=== PATIENT | male | born 1955 | race Caucasian/White ===

== ENCOUNTER → 2019-11-24 10:45 | Outpatient (BNVA) | payer MEDICARE, SELFPAY | PROVIDERS: Family Provider Internal Medicine; PCP Internal Medicine; Referring Provider Internal Medicine; Visit Provider Specialist | DX: M25.562 Pain in left knee (principal); M25.561 Pain in right knee | CPT/HCPCS: 73560; 73565 ==

== ENCOUNTER 2019-11-25 13:12 | Outpatient (RCR) | payer MEDICARE, SELFPAY | END 2019-11-26 23:59 | disposition home or self-care (01) | LOC: SPT 13:12 | PROVIDERS: PCP Internal Medicine; Referring Provider Specialist; Visit Provider Specialist | DX: M17.11 Unilateral primary osteoarthritis, right knee (principal) | CPT/HCPCS: 97161 ==

== ENCOUNTER 2019-11-27 06:00 | Outpatient (RCR) | payer MEDICARE, SELFPAY | END 2019-12-27 23:59 | disposition home or self-care (01) | LOC: SPT 06:00 | PROVIDERS: PCP Internal Medicine; Referring Provider Specialist; Visit Provider Specialist | DX: M17.11 Unilateral primary osteoarthritis, right knee (principal) | CPT/HCPCS: 97110 ==

== ENCOUNTER 2019-12-28 06:00 | Outpatient (RCR) | payer MEDICARE, SELFPAY | END 2020-01-26 23:59 | disposition home or self-care (01) | LOC: SPT 06:00 | PROVIDERS: PCP Internal Medicine; Referring Provider Specialist; Visit Provider Specialist | DX: M17.0 Bilateral primary osteoarthritis of knee (principal) | CPT/HCPCS: 97110 ==

== ENCOUNTER 2020-01-27 06:00 | Outpatient (RCR) | payer MEDICARE, SELFPAY | END 2020-02-26 23:59 | disposition home or self-care (01) | LOC: SPT 06:00 | PROVIDERS: PCP Internal Medicine; Referring Provider Specialist; Visit Provider Specialist | DX: M17.11 Unilateral primary osteoarthritis, right knee (principal) | CPT/HCPCS: 97110 ==

== ENCOUNTER 2020-07-08 17:01 | Inpatient (IN) | payer MEDICARE, SELFPAY ==
[2020-07-08] VITALS (48 sets, daily range): BP systolic 125–201; BP diastolic 74–103; PULSE 74–86; RESP 16–33; TEMP 36.6; O2SAT 84–99; BMI 48.7
--- NOTE | 2020-07-08 17:10 | ECG_ITS ---
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 Measurements Intervals [place] Rate: 84 P: -68 CT: 162 QRS: 15 QRSD: 95 T: 88 QT: 339 QTc: 401 Interpretive Statements SINUS RHYTHM LOW QRS VOLTAGE IN PRECORDIAL LEADS [QRS DEFLECTION < 1.0 mV IN CHEST LEADS] MODERATE ST DEPRESSION [0.05+ mV ST DEPRESSION] Compared to ECG 05/01/2016 19:19:36 Low QRS voltage now present ST (T wave) deviation now present T-wave abnormality no longer present Electronically Signed On 07-08-2020 19:38:56 [employer] by Sarah Galvan M.D. [email or web address]
--- NOTE | 2020-07-08 17:10 | XRR_ITS ---
PROCEDURE INFORMATION: Exam: XR Chest Exam date and time: 07/08/2020 5:34 PM Age: 64 years old Clinical indication: Chest pain. TECHNIQUE: Imaging protocol: XR of the chest Views: 1 view. COMPARISON: No relevant prior studies available. FINDINGS: Lungs: No pulmonary vascular congestion, pulmonary edema or pneumonia. Pleural spaces: No pleural effusion. No pneumothorax. Heart/Mediastinum: The cardiac silhouette is not enlarged. Prior CABG. Bones/joints: Prior median sternotomy. Soft tissues: Left epicardial fat pad. XR/XR chest 1V portable [id number] IMPRESSION: No acute abnormality.
--- NOTE | 2020-07-08 17:12 | W.ED.CHESTPA ---
HPI - Chest Pain General: Chief Complaint: Chest Pain Stated Complaint: CHEST PAIN Time Seen by Provider: 07/08/20 17:05 History of Present Illness: HPI narrative: The patient is a 64-year-old male who comes to the ER complaining of left-sided chest pain for the past 15 to 20 minutes at home. He has a significant history for coronary artery disease with CABG surgery years ago. 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 He says the pain is left-sided and feels heavy and makes him severely short of breath. complaint: chest pain and chest heaviness Pertinent past history: coronary artery disease and CABG Timing of current episode: constant Prior episodes: No Onset: during rest Pain location: left chest Pain radiation: none Severity: severe Quality: tightness, heaviness and sharp Relieving factors: nothing Exacerbating factors: nothing Associated symptoms: Reports no associated symptoms; Deny abdominal pain, dyspnea or palpitations Review of Systems General: Reports: 10 or more systems reviewed and unremarkable except in HPI and below Const: Denies: fatigue Eyes: Denies: change in vision, blurry vision or eye redness ENMT: Denies: throat pain, swelling of lips/tongue, ear or mastoid pain or nasal congestion Card: Reports: chest pain; Denies: palpitations, irregular heart rhythm, edema, dyspnea on exertion or orthopnea Resp: Denies: dyspnea, productive cough or non-productive cough GI: Denies: abdominal pain, diarrhea or GI cramping : Denies: flank pain, urinary frequency or urinary urgency Musc: Denies: neck pain, back pain, extremity pain, joint pain, joint redness, limited range of motion or muscle weakness Skin/Breast: Denies: rash, pruritus, erythema, skin pain or skin tenderness Neuro: Denies: headache(s), numbness in extremities, weakness in extremities, sensory changes, difficulty walking, dizziness, confusion or Slurred speech present Psych: Denies: anxiety or depression Endo: Denies: polyuria All/Imm: Denies: urticaria, throat swelling or tongue swelling PFSH ED PFSH: Medical History (Updated 07/08/20 @ 22:37 by Yohannes Merino MD) Coronary artery disease Gastroesophageal reflux disease Hypertension Hypothyroidism Percutaneous transluminal coronary angioplasty (PTCA) within last 14 to 24 months Sleep apnea Surgical History History of coronary artery bypass graft x 3 Family History (Updated 07/08/20 @ 22:33 by Yohannes Merino MD) Mother Diabetes Hyperlipidemia Hypertension Father CAD (coronary artery disease) Hyperlipidemia Hypertension Diabetes Social History Smoking and tobacco status: never smoked Alcohol intake: never Current occupational status: disabled Physical Exam Const: COMMON NORMALS: no acute distress, average body habitus, patient oriented x3, no limitations, healthy appearing, alert and well nourished GENERAL APPEARANCE: cooperative, comfortable, well kempt and well developed ORIENTATION/CONSCIOUSNESS: Yes awake, Yes oriented to person, Yes oriented to place and Yes oriented to time HENMT: COMMON NORMALS: normocephalic, external ears normal and Normal external nose present HEAD & SCALP: normal to inspection and normocephalic NOSE: Normal external nose present EXTERNAL EAR: Yes external ears normal MOUTH: Normal oral and palatal mucosa present THROAT: posterior oropharynx normal Eye: COMMON NORMALS: Equal, round and reactive pupils present and EOMs intact bilaterally GENERAL EYE: appearance normal, both eyes and all related structures PUPIL: Yes Equal, round and reactive pupils present Neck/C-Spine: COMMON NORMALS: full ROM, no lymphadenopathy, no meningeal signs and no JVD GENERAL: Yes normal visual inspection Lymph: LYMPHATIC: no lymphadenopathy noted Chest: COMMONS NORMALS: normal inspection of the chest and normal palpation of entire chest wall Resp: COMMON NORMALS: normal respiratory effort, No retractions, No use of accessory muscles, clear to auscultation bilaterally and percussion normal EFFORT & INSPECTION: Yes able to speak in complete sentences AUSCULTATION: clear to auscultation bilaterally PERCUSSION: percussion normal Cardio: COMMON NORMALS: no JVD, regular rate, regular rhythm, S1 normal heart sound present, S2 normal heart sound present and Peripheral pulses 2+ throughout RATE: regular rate RHYTHM: regular rhythm HEART SOUNDS: S1 normal heart sound present and S2 normal heart sound present PERIPHERAL PULSES: Peripheral pulses 2+ throughout GI: COMMON NORMALS: Normal to inspection, nondistended, normoactive bowel sounds present, Soft to palpation, non-tender and no masses INSPECTION: Yes normal to inspection PALPATION: Yes Soft to palpation : COMMON NORMALS: Yes no CVA tenderness BLADDER/KIDNEY EXAM: Yes no CVA tenderness Back/Pelvis: COMMON NORMALS: no CVA tenderness, thoracic and lumbar spine normal to inspection, no thoracic nor lumbar tenderness and thoraco-lumbar ROM normal Extremity: COMMON NORMALS: normal to inspection, full ROM, capillary refill normal, no joint enlargement and no pedal edema GENERAL: Yes normal exam except as noted Neuro: COMMON NORMALS: patient oriented x3, CN's II-XII intact bilaterally, moves all extremities, no focal motor deficits, no sensory deficits noted and gait normal SENSORIUM/ORIENTATION: Yes alert, Yes oriented to person, Yes oriented to place and Yes oriented to time MENINGEAL SIGNS: Yes no meningeal signs Psych: COMMON NORMALS: mental status grossly normal, Normal thought process present, cooperative, normal affect and speech normal APPEARANCE: Yes well kempt ATTITUDE: Yes calm SPEECH: Yes normal speech THOUGHT PROCESS: Normal thought process present Skin: COMMON NORMALS: no rashes or lesions noted GENERAL SKIN EXAM: no rashes or lesions noted Course Vital Signs: Vital signs: Vital Signs Temperature 97.9 F 07/08/20 20:45 Pulse Rate 77 07/08/20 23:40 Respiratory Rate 27 H 07/08/20 23:40 Blood Pressure 152/83 07/08/20 23:40 Pulse Oximetry 98 07/08/20 23:40 MDM - Chest Pain MDM Narrative: Medical decision making narrative: The patient came in with typical angina symptoms. He has not had a stress test in over 5 years. Initial EKG shows ST depressions in the lateral leads. Discussed with Dr. Dove who recommended going straight to [facility] as it is likely an MO. Activated the [facility] and he was given Plavix 600, aspirin, nitro, and heparin 4000. Lab Data: Labs: Lab Results 07/08/20 07/08/20 07/08/20 Range/Units 17:13 17:13 17:13 WBC 8.1 (4.0-10.0) 10^3/ uL RBC 4.69 (4.1-5.3) 10^6/u L Hgb 13.8 (11.7-16.6) g/dL Hct 42.0 (42.0-52.0) % MCV 89.6 (80-94) fL MCH 29.4 (28.0-34.0) pg MCHC 32.9 (30.0-36.0) g/dL RDW 15.9 H (12.1-15.1) % Plt Count 234 (130-400) 10^3/c mm MPV 9.8 (7.4-10.4) fL Neut % (Auto) 54.1 % Lymph % (Auto) 32.8 % [place] % (Auto) 6.9 % Eos % (Auto) 3.7 % Baso % (Auto) 2.0 % Neut # (Auto) 4.36 (1.8-7.7) 10^3/u L Lymph # (Auto) 2.7 (0.8-4.8) 10^3/u L [place] # (Auto) 0.6 (0.2-0.9) 10^3/u L Eos # (Auto) 0.3 (0.0-0.8) 10^3/u L Baso # (Auto) 0.2 H (0.0-0.1) 10^3/u L Nucleated RBC % (a uto) 0 % Nucleated RBCs # 0.0 /100WBC D-Dimer 0.50 (0-0.59) ug/mIFE U Sodium 137 (136-145) mmol/L Potassium 3.6 (3.5-5.1) mmol/L Chloride 98 (98-107) mmol/L Carbon Dioxide 27 (22-29) mmol/L Anion Gap 15.6 (5-19) BUN 19 (8-23) mg/dL Creatinine 1.3 H (0.7-1.2) mg/dL GFR Calculation 55.6 L (90-130) mL/min Glucose 190 H (65-115) mg/dL Calculated Osmolal ity 291 (285-295) mOsm/k g Calcium 9.5 (8.5-10.5) mg/dL Total Bilirubin 0.9 (0.15-1.2) mg/dL AST 15 (0-40) U/L ALT 17 (0-41) U/L Alkaline Phosphata se 103 (40-130) IU/L Troponin T Baselin e (0-15) ng/L NT-Pro-B Natriuret Pep 632 H (0-125) pg/mL Total Protein 7.6 (6.6-8.7) g/dL Albumin 4.5 (3.5-5.2) g/dL Globulin 3.1 (1.3-4.6) g/dL 07/08/20 Range/Units 17:13 WBC (4.0-10.0) 10^3/ uL RBC (4.1-5.3) 10^6/u L Hgb (11.7-16.6) g/dL Hct (42.0-52.0) % MCV (80-94) fL MCH (28.0-34.0) pg MCHC (30.0-36.0) g/dL RDW (12.1-15.1) % Plt Count (130-400) 10^3/c mm MPV (7.4-10.4) fL Neut % (Auto) % Lymph % (Auto) % [place] % (Auto) % Eos % (Auto) % Baso % (Auto) % Neut # (Auto) (1.8-7.7) 10^3/u L Lymph # (Auto) (0.8-4.8) 10^3/u L [place] # (Auto) (0.2-0.9) 10^3/u L Eos # (Auto) (0.0-0.8) 10^3/u L Baso # (Auto) (0.0-0.1) 10^3/u L Nucleated RBC % (a uto) % Nucleated RBCs # /100WBC D-Dimer (0-0.59) ug/mIFE U Sodium (136-145) mmol/L Potassium (3.5-5.1) mmol/L Chloride (98-107) mmol/L Carbon Dioxide (22-29) mmol/L Anion Gap (5-19) BUN (8-23) mg/dL Creatinine (0.7-1.2) mg/dL GFR Calculation (90-130) mL/min Glucose (65-115) mg/dL Calculated Osmolal ity (285-295) mOsm/k g Calcium (8.5-10.5) mg/dL Total Bilirubin (0.15-1.2) mg/dL AST (0-40) U/L ALT (0-41) U/L Alkaline Phosphata se (40-130) IU/L Troponin T Baselin e 115 H* (0-15) ng/L NT-Pro-B Natriuret Pep (0-125) pg/mL Total Protein (6.6-8.7) g/dL Albumin (3.5-5.2) g/dL Globulin (1.3-4.6) g/dL Discharge Plan Discharge Admit Provider: Paul Dove Clinical Impression: Unstable angina pectoris Condition: Stable Coding Level of Care 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
--- NOTE | 2020-07-08 17:21 | XACV_ITS ---
Exam Room: [facility] Ht: 175 cm Wt: 150 kg BSA: 2.78 m2 Gender: Male : 1955 Any Known Allergies: No known allergies Exam Priority: Routine Procedure(s): Procedure Description: Diagnostic procedure Procedure Description: Graft angiography Procedure Description: Coronary angiography Procedure Description: Percutaneous coronary intervention Diagnostic Cath Status: Emergency Diagnostic Findings * Left Main Coronary Artery: Distal vessel severe 70% stenosis, JOSEPH: 3 flow. * mLAD: Severe 100% stenosis, JOSEPH: 0 flow. JIMÉNEZ to LAD is patent. * SVG to OM: 100% stenosis, JOSEPH: 0 flow. This is the culprit lesion for the acute TN. * SVG to RPAV: 100% stenosis, JOSEPH: 0 flow. * pCIRC: Severe 85% stenosis, JOSEPH: 3 flow. * Mid Circumflex Coronary Artery: Severe 95% stenosis, JOSEPH: 3 flow. * Distal Circumflex Coronary Artery: Severe 75% stenosis, JOSEPH: 3 flow. * Proximal Right Coronary Artery: Severe 100% stenosis, JOSEPH: 0 flow. * Three grafts visualized. * JIMÉNEZ to dLAD: patent. * Coronary angiography shows right dominance. PCI Status: Emergency PCI Indication: STEMI - Stable (<= 12 hrs Sx) Interventional Findings * Procedure detail: IV heparin was administered to maintain an ACT above 250 seconds. We briefly attempted to perform revascularization of the SVG to OM as that was the cuplrit lesion but after balloon angioplasty, there was not mandaeism of flow. Attempt at revascularization of the RCA was also done, however given the presence of right to right collateral vessels, it became apparent that it is also not the culprit vessel. At this time we have decided to proceed with revascularization of [place] left main to left circumflex artery. We engaged left main artery using XB 3.5 guide catheter. A 0.014 run-through guidewire was used to cross the left circumflex artery stenosis and placed in the distal vessel. We predilated the stenosis with 2.25 mm semicompliant balloon, followed by 2.5x15mm semicompliant balloon. This was followed by placement of 2.75x30 mm resolute [place] drug-eluting stent in proximal vessel. We then predilated the left main stenosis with a 2.5x15mm semi compliant balloon. This was followed by placement of a 3.0x18mm Resolute aleisha BRYCE in left main extending into the left circumflex overlapping the initial stent. Left main stent was post dilated with a 3.5x 8mm NC balloon. There was significant residual stenosis downstream that was treated with a 2.5x26 and thena 2.5x18mm BRYCE. At this time final angiogram was performed that showed excellent stent expansion, no residual stenosis and JOSEPH-3 flow. Guidewire and guide catheter were removed. Hemostasis was obtained with angioseal. Patient left the [employer] in a stable condition. * Left Main Coronary Artery: 70% stenosis treated with AB TREK 2.50X15 RX BALLOON, MDT R ALEISHA 3.0X18 BRYCE, and MDT NC EUPHORA RX [id number] BALLOON. 0% residual stenosis, JOSEPH: 3 flow. * pCIRC: 85% stenosis treated with Drug Eluting Stent. 0% residual stenosis, JOSEPH: 3 flow. * Mid Circumflex Coronary Artery: 95% stenosis treated with AB TREK 2.25X12 RX BALLOON, AB TREK 2.50X15 RX BALLOON, and MDT R ALEISHA 2.75X30 BRYCE. 0% residual stenosis, JOSEPH: 3 flow. * Distal Circumflex Coronary Artery: 75% stenosis treated with AB TREK 2.25X12 RX BALLOON, MDT R ALEISHA 2.5X26 BRYCE, and MDT R ALEISHA 2.5X18 BRYCE. 0% residual stenosis, JOSEPH: 3 flow. * Proximal Right Coronary Artery: 100% stenosis treated with AB MINI TREK 2.00X6 RX BALLOON and AB TREK 2.25X12 RX BALLOON. 0% residual stenosis, JOSEPH: 3 flow. Conclusions 1. There is severe coronary artery disease with multi vessel coronary artery disease. 2. JIMÉNEZ to LAD is patent. SVG to OM is proximally occluded with thombus seen ( culprit lesion for acute posterior TN). SVG to RCA occluded. 3. Left Main Coronary Artery had distal severe disease and was treated with two Balloon and Drug Eluting Stent. 4. pCIRC was treated with Drug Eluting Stent. 5. Mid Circumflex Coronary Artery was treated with two Balloon and Drug Eluting Stent. 6. Distal Circumflex Coronary Artery was treated with Balloon and two Drug Eluting Stent. 7. Proximal Right Coronary Artery was treated with two Balloon. Recommendations * Admit to ICU. * Aspirin and Plavix for atleast 1 year. * Aggrastat gtt for 12 hours. * IV fluids for 18hours. * Order echocardiogram. * Beta blockers and lisinopril. * High intensity statin therapy. * Outpatient cardiology follow up. Interventional RX Recommendation: PCI w/o planned CABG Diagnostic RX Recommendation: PCI w/o planned CABG Anticoagulation: Heparin, Tirofiban Pressures Phase:Rest AO : 196 / 117 ( 108 ) @ 1:10:00 PM 95 / 72 ( 81 ) @ 1:14:00 PM 143 / 93 ( 117 ) @ 1:20:00 PM 158 / 96 ( 126 ) @ 1:33:00 PM 126 / 74 ( 98 ) @ 2:47:00 PM Clinical Evaluation EBL: 5mL-10mL Procedural Details Procedure Consent Obtained. Pre-Procedure Time Out. Identified patient by full name and date of as verbalized by the patient/guarantor. Does the consent match the physician's order: N/A Emergent; Informed Consent not obtained due to time critical life threat. Accurate & Complete Informed Consent: N/A Emergent; Informed Consent not obtained due to time critical life threat. Inpatient/Outpatient History & Physical on Chart: N/A Emergent; Informed Consent not obtained due to time critical life threat. If H&P is completed, is and addenduem needed: N/A Emergent; Informed Consent not obtained due to time critical life threat; If yes, is the addendum complete: N/A Emergent; Informed Consent not obtained due to time critical life threat. Visualize and Verify Site with Patient/Guarantor: N/A. Relevant Radiology Images available: N/A Emergent; Informed Consent not obtained due to time critical life threat. Pre-op teaching completed and patient verbalized understanding. The risks, benefits, and alternatives of sedation and/or procedure were discussed by physician. The patient agrees to continue. Procedure started. Current diagnosis: STEMI. PERRLA. Strong, equal hand staff training and development manager bilaterally. Lungs clear x 5 lobes. IV Fluids: 0.9% NaCl at KVO. 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 IV Site on Arrival: 18 gauge in the right anticubital. IV Site on Arrival: 18 gauge in the left anticubital. Oxygen started at 2liters/min via nasal canula. bilateral groins was prepped with chloroprep then draped in the usual sterile fashion. Physician notified. Baseline sample Acquired. HR: 80 BPM. Equipment: 6F - Femoral. Cardiac Cath Pack. ACIST Manifold Kit Model BT 2000. Heparinized Saline (2 units/mL), 1000 mL bag. Kit, Micropuncture. Physician arrived. Physician scrubbed in. Immediate Pre-Procedure Time Out. Correct Patient: N/A Emergent; Informed Consent not obtained due to time critical life threat; Correct Procedure: N/A Emergent; Informed Consent not obtained due to time critical life threat; Correct Site: N/A Emergent; Informed Consent not obtained due to time critical life threat; Correct Patient Position: N/A Emergent; Informed Consent not obtained due to time critical life threat; Correct Supplies: N/A Emergent; Informed Consent not obtained due to time critical life threat; Dried Flammable Prep: N/A Emergent; Informed Consent not obtained due to time critical life threat; Blood Products Available: N/A Emergent; Informed Consent not obtained due to time critical life threat;. Lidocaine 1% infiltrated to the right groin. Arterial access obtained with micropuncture set. A 5 samoan JL4 catheter in over wire. Multiple views taken of left coronary artery. Catheter out. A 5 samoan JR4 catheter in over wire. Multiple views taken of right coronary artery. SVG to RCA occluded. SVG to OM occluded. Catheter out. ACT drawn. Results 155 seconds. Therapeutic limits - pre-heparin administration 90-150 seconds and monitoring heparin during a vascular procedure >250 seconds. 6 samoan JR 4 guide catheter was inserted over the wire. Runthrough guidewire was advanced through the guide catheter to lesion in the OM. Inflation number : 1 A AB MINI TREK 2.00X6 RX BALLOON was prepped and advanced across the Aorta Left -> 1st Ob Vilma , then inflated to 8 ANDRIA for 0:18 seconds. Balloon out. Wire out. 6fr JR4 guide catheter repositioned to RCA. Wire out. Runthrough guidewire was advanced through the guide catheter to lesion in the prox RCA. Inventory is TR 180cm Runthrough NS extra floppy 0.014 wire. Inventory is TR 180cm Runthrough NS extra floppy 0.014 wire. Inflation number: 1 The AB MINI TREK 2.00X6 RX BALLOON was reinflated across the Prox RCA, to 10 ANDRIA for 0:22 seconds. Inflation number: 2 The AB MINI TREK 2.00X6 RX BALLOON was reinflated across the Prox RCA, to 10 [place]RI[place] for 0:13 seconds. Balloon out. Inflation number : 3 A AB TREK 2.25X12 RX BALLOON was prepped and advanced across the Prox RCA , then inflated to 12 ANDRIA for 0:18 seconds. Runthrough guidewire was advanced through the guide catheter to lesion in the prox RCA. Christina Morris RRT was relieved by EZEQUIEL Diaz as monitoring person. Balloon out. both Wires out. Guide catheter out. 6 samoan XB 3.5 guide catheter was inserted over the wire. Inventory is CRD 6 FR XB 3.5 GUIDE. Guide catheter out. 5 samoan IM guide catheter was inserted over the wire. JIMÉNEZ to LAD visualized. Guide catheter out. 6 samoan XB 3.5 guide catheter was inserted over the wire. ACT drawn. Results 181 seconds. Therapeutic limits - pre-heparin administration 90-150 seconds and monitoring heparin during a vascular procedure >250 seconds. Guide catheter out. Inventory is CRD 6 FR XB 3.5 GUIDE. 6 samoan XB 3.5 guide catheter was inserted over the wire. Runthrough guidewire was advanced through the guide catheter to lesion in the mid Circ. Balloon inserted to lesion in the mid Circ. Inflation number : 1 A AB TREK 2.25X12 RX BALLOON was prepped and advanced across the Mid CX , then inflated to 14 ANDRIA for 0:21 seconds. Inflation number: 2 The AB TREK 2.25X12 RX BALLOON was reinflated across the Mid CX, to 14 ANDRIA for 0:28 seconds. Inflation number: 3 The AB TREK 2.25X12 RX BALLOON was reinflated across the Mid CX, to 12 ANDRIA for 0:18 seconds. Inflation number: 4 The AB TREK 2.25X12 RX BALLOON was reinflated across the Mid CX, to 12 ANDRI[place] for 0:22 seconds. Balloon out. Balloon inserted to lesion in the mid Circ. Inflation number : 5 A AB TREK 2.50X15 RX BALLOON was prepped and advanced across the Mid CX , then inflated to 12 ANDRIA for 0:07 seconds. Inflation number: 6 The AB TREK 2.50X15 RX BALLOON was reinflated across the Mid CX, to 12 ANDRIA for 0:06 seconds. Inflation number: 7 The AB TREK 2.50X15 RX BALLOON was reinflated across the Mid CX, to 12 ANDRIA for 0:21 seconds. Balloon out. Stent inserted to lesion in the mid Circ. Inflation Number : 8 A MDT R ALEISHA 2.75X30 BRYCE -Lot Number# [id number] was prepped and advanced across the Mid CX. The stent was deployed at 12 ANDRIA for 0:20 seconds. exp 2021-10-30. Stent balloon out over wire. Results checked. Stent inserted to lesion in the distal Circ. intacted stent out over the wire. warehouse administrator updated family at this time. ACT drawn. Results 357 seconds. Therapeutic limits - pre-heparin administration 90-150 seconds and monitoring heparin during a vascular procedure >250 seconds. Runthrough guidewire was advanced through the guide catheter to lesion in the prox LAD. Wire out. Inventory is TR 180cm Runthrough NS extra floppy 0.014 wire. Runthrough guidewire was advanced through the guide catheter to lesion in the prox LAD. LAD Wire out. Stent inserted to lesion in the distal Circ. intact stent out. Balloon inserted to lesion in the distal left main. Inflation number : 1 A AB TREK 2.50X15 RX BALLOON was prepped and advanced across the LMCA , then inflated to 8 ANDRIA for 0:16 seconds. Results checked. Inflation number: 2 The AB TREK 2.50X15 RX BALLOON was reinflated across the LMCA, to 12 [place]RI[place] for 0:21 seconds. Results checked. Balloon out. Stent inserted to lesion in the LMCA. Inflation Number : 3 A MDT R ALEISHA 3.0X18 BRYCE -Lot Number# [id number] was prepped and advanced across the LMCA. The stent was deployed at 12 ANDRI[place] for 0:18 seconds. Exp 2022-03-21. Results checked. Balloon out. Runthrough guidewire was advanced through the guide catheter to lesion in the distal Circ. Balloon inserted to lesion in the distal Circ. Inflation number : 1 A AB TREK 2.25X12 RX BALLOON was prepped and advanced across the Dist CX , then inflated to 14 ANDRIA for 0:17 seconds. Balloon out. Stent inserted to lesion in the distal Circ. Inflation Number : 2 A MDT R ALEISHA 2.5X26 BRYCE -Lot Number# [id number] was prepped and advanced across the Dist CX. The stent was deployed at 14 ANDRIA for 0:21 seconds. Exp 2021-09-10. Stent balloon out over wire. Balloon inserted to lesion in the LMCA. Inflation number : 4 A MDT NC EUPHORA RX [id number] BALLOON was prepped and advanced across the LMCA , then inflated to 12 ANDRIA for 0:16 seconds. Inflation number: 5 The MDT NC EUPHORA RX [id number] BALLOON was reinflated across the LMCA, to 12 ANDRIA for 0:16 seconds. Inflation number: 6 The MDT NC EUPHORA RX [id number] BALLOON was reinflated across the LMCA, to 14 ANDRIA for 0:13 seconds. Balloon out. one of the runthorugh wires is out. Stent inserted to lesion in the distal Circ. Inflation Number : 3 A MDT R ALEISHA 2.5X18 BRYCE -Lot Number# [id number] was prepped and advanced across the Dist CX. The stent was deployed at 12 ANDRIA for 0:19 seconds. Exp 2021-01-03. Stent balloon and wire out. Results checked. ACT drawn. Results 223 seconds. Therapeutic limits - pre-heparin administration 90-150 seconds and monitoring heparin during a vascular procedure >250 seconds. Guide catheter out. groin shot. Lidocaine 1% infiltrated to the right groin. angioseal placed without complications. lot# [id number]. No signs or symptoms of hematoma noted. Sterile dressing applied per usual sterile fashion. Post-op diagnosis: occuled svg to om. Complications: none. Estimated blood loss: 5mL-10mL. Total IV fluids: 122 mL. Medication's Wasted: Lidocaine 1% = 10 mL. Medication's Wasted: Nitro = 49.6 mg. Medication's Wasted: Other = fentanayl 25 mcg. Post Procedure: Pulses reassessed and unchanged. PERRLA. Strong, equal hand staff training and development manager bilaterally. No VTE prophylaxis required. Procedure completed. Patient transferred by bed to ICU. Vital chart was stopped. Access Site Site: Right Femoral artery Sheath Size: 6 Fr Hemostasis Success: Unsuccessful Procedure Medications Start: 6:05 PM Stop: 6:05 PM Medication: Plavix Amount: 600 mg Route: P.O. Start: 6:05 PM Stop: 6:05 PM Medication: Versed Amount: 1 mg Route: I.V. Start: 6:05 PM Stop: 6:05 PM Medication: Fentanyl Amount: 50 mcg Route: I.V. Start: 6:07 PM Stop: 6:07 PM Medication: Versed Amount: 1 mg Route: I.V. Start: 6:07 PM Stop: 6:07 PM Medication: Fentanyl Amount: 50 mcg Route: I.V. Start: 6:09 PM Stop: 6:09 PM Medication: Heparin Amount: 6000 units Route: I.V. Start: 6:20 PM Stop: 6:20 PM Medication: Versed Amount: 1 mg Route: I.V. Start: 6:23 PM Stop: 6:23 PM Medication: Heparin Amount: 5000 units Route: I.V. Start: 6:28 PM Stop: 6:28 PM Medication: Versed Amount: 1 mg Route: I.V. Start: 6:28 PM Stop: 6:28 PM Medication: Fentanyl Amount: 25 mcg Route: I.V. Start: 6:33 PM Stop: 6:33 PM Medication: Aggrastat 12.5 mg/250 mL Amount: 75 ml Route: I.V. bolus Start: 6:38 PM Stop: 6:38 PM Medication: Aggrastat 12.5 mg/250 mL Amount: 27 ml/hr Route: I.V. drip Start: 6:41 PM Stop: 6:41 PM Medication: Versed Amount: 1 mg Route: I.V. Start: 6:41 PM Stop: 6:41 PM Medication: Fentanyl Amount: 25 mcg Route: I.V. Start: 6:46 PM Stop: 6:46 PM Medication: Nitrogylcerin Amount: 5 mcg/min Route: I.V. drip Start: 6:56 PM Stop: 6:56 PM Medication: Versed 1 mg and Fentanyl 25 mcg Amount: 1 Route: I.V. Start: 7:03 PM Stop: 7:03 PM Medication: Nitrogylcerin Amount: 10 mcg/min Route: I.V. drip Start: 7:04 PM Stop: 7:04 PM Medication: Heparin Amount: 6000 units Route: I.V. Start: 7:10 PM Stop: 7:10 PM Medication: Versed 1 mg and Fentanyl 25 mcg Amount: 1 Route: I.V. Start: 7:24 PM Stop: 7:24 PM Medication: Versed 1 mg and Fentanyl 25 mcg Amount: 1 Route: I.V. Start: 7:30 PM Stop: 7:30 PM Medication: Nitrogylcerin Amount: 200 mcg Route: I.C. Start: 7:43 PM Stop: 7:43 PM Medication: Nitrogylcerin Amount: 15 mcg/min Route: I.V. drip Start: 7:45 PM Stop: 7:45 PM Medication: Nitrogylcerin Amount: 200 mcg Route: I.C. Start: 7:45 PM Stop: 7:45 PM Medication: Versed Amount: 2 mg Route: I.V. Start: 7:46 PM Stop: 7:46 PM Medication: Fentanyl Amount: 25 mcg Route: I.V. Start: 7:59 PM Stop: 7:59 PM Medication: Nitrogylcerin Amount: 200 mcg Route: I.C. Start: 8:02 PM Stop: 8:02 PM Medication: Versed 1 mg and Fentanyl 25 mcg Amount: 1 Route: I.V. Start: 8:07 PM Stop: 8:07 PM Medication: Heparin Amount: 2000 units Route: I.V. I, the attending physician, have reviewed and verified all procedure medications. Yes, all medications given per verbal order Report Signatures Finalized by Paul Dove MD on 07/16/2020 03:25 PM
[2020-07-08] MEDS: aspirin 81 mg Chew Tablet PO ×3 (17:25)
[2020-07-08] MEDS: nitroglycerin 0.4 mg sublingual Tablet SUBLINGUAL (17:26)
[2020-07-08] MEDS: heparin 5,000 unit/mL INJ 1 mL 4000 UNIT IVP (17:26)
[2020-07-08 17:44] LABS: Basophils # 0.2 10^3/uL (0.0-0.1); Eosinophils # 0.3 10^3/uL (0.0-0.8); Eosinophils % 3.7 %; Hemoglobin 13.8 g/dL (11.7-16.6); Lymphocytes # 2.7 10^3/uL (0.8-4.8); Lymphocytes % 32.8 %; Mean Corpuscular HGB Conc 32.9 g/dL (30.0-36.0); Mean Corpuscular Hemoglobin 29.4 pg (28.0-34.0); Mean Corpuscular Volume 89.6 fL (80-94); Mean Platelet Volume 9.8 fL (7.4-10.4); Monocytes # 0.6 10^3/uL (0.2-0.9); Monocytes % 6.9 %; Neutrophils # 4.36 10^3/uL (1.8-7.7); Neutrophils % 54.1 %; Nucleated Red Blood Cells % 0 %; Platelet Count 234 10^3/cmm (130-400); Red Blood Count 4.69 10^6/uL (4.1-5.3); Red Cell Distribution Width 15.9 % (12.1-15.1); White Blood Count 8.1 10^3/uL (4.0-10.0)
--- NOTE | 2020-07-08 17:46 | P.HP_ITS ---
Providers/Chief Complaint Admitting Physician: Paul Dove MD Primary Care Provider: Celina Fofana MD Chief Complaint: CHEST PAIN History of Present Illness Murray Harp is a 64 year old male with past medical history of hypertension, diabetes, coronary artery disease with CABG performed in 2003 and PCI performed in 2013 according to patient presents with 20 minutes of severe substernal chest pain. According to patient he started noticing chest pain that feels like s omething heavy sitting on the chest. No radiation. After receiving the nitro it has mildly improved but continued having significant pain. His blood pressure is elevated. He was loaded with aspirin, Plavix and heparin bolus. EKG demonstrated likely posterior CO with ST depressions in V1 and V2 and T wave inversion and ST depressions in lateral leads. He was brought emergently to [facility]. Coronary angiography showed occlusion of SVG to RCA. SVG to OM was also occluded. This was likely the culprit for his CO. RCA had a proximal stent after which it was totally occluded. Filling with right to right collaterals in the distal vessel. JIMÉNEZ to LAD was patent. There were severe multiple lesions and left circumflex artery. Distal left main artery also had severe disease. We made a brief attempt at opening the SVG to OM. This was not successful. We then switched our plan to fix the washoe vessel. Patient underwent successful revascularization with BRYCE x4 from left main to distal left circumflex artery. At the end of procedure he had excellent stent expansion, JOSEPH-3 flow and no residual stenosis. His chest pain and EKG changes resolved. Review of Systems Narrative: CONSTITUTIONAL: No fever chills weight loss or gain or night sweats. [] HEENT: Normocephalic, atraumatic.[] RESPIRATORY: No cough, sputum, hemoptysis or wheezing.[] CARDIOVASCULAR: Patient has chest pain and shortness of breath, no lower extremity edema, presyncope or syncope. [] GI: no nausea vomiting diarrhea. [] SCRAP BALLER: No numbness, tingling, weakness or loss of function in any part of the body. [] MUSCULOSKELETAL: No knee or joint pain or rashes. [] Medications/Allergies Home Medications Medication Instructions Recorded Confirmed Last Taken Type amlodipine 5 mg PO DAILY 07/08/20 07/08/20 07/08/20 History aspirin 81 mg PO DAILY 07/08/20 07/08/2007/08/21 History atorvastatin 80 mg PO DAILY 07/08/20 07/08/20 07/07/20 History clopidogrel 75 mg PO DAILY 07/08/20 07/08/20 07/08/20 History gabapentin 300 mg PO TID 07/08/20 07/08/20 07/08/20 History hydrochlorothiazide 25 mg PO DAILY 07/08/20 07/08/20 07/08/20 History insulin aspart U-100 [Novolog 20 unit SUBCUT TIDWM 07/08/20 07/08/20 Unknown History Flexpen U-100 Insulin] insulin degludec [Tresiba 50 unit SUBCUT DAILY 07/08/20 07/08/20 07/07/20 Histo ry FlexTouch U-100] isosorbide mononitrate 120 mg PO DAILY 07/08/20 07/08/20 07/08/20 History levothyroxine 175 mcg PO DAILY 07/08/20 07/08/20 07/08/20 History lisinopril 20 mg PO DAILY 07/08/20 07/08/20 07/08/20 History metformin 500 mg PO BID 07/08/20 07/08/20 07/08/20 History metoprolol tartrate 25 mg PO BID 07/08/20 07/08/20 07/08/20 History pantoprazole 40 mg PO DAILY 07/08/20 07/08/20 07/08/20 History Allergies Allergy/AdvReac Type Severity Reaction Status Date / Time No Known Allergies Allergy Verified 05/18/20 07:59 PFSH Acute PFSH: Medical History (Updated 07/09/20 @ 08:33 by Paul Dove M.D) Coronary artery disease Gastroesophageal reflux disease Hypertension Hypothyroidism Percutaneous transluminal coronary angioplasty (PTCA) within last 14 to 24 months Sleep apnea Surgical History History of coronary artery bypass graft x 3 Family History (Updated 07/08/20 @ 22:33 by Yohannes Merino MD) Mother Diabetes Hyperlipidemia Hypertension Father CAD (coronary artery disease) Hyperlipidemia Hypertension Diabetes Social History Smoking and tobacco status: never smoked Alcohol intake: never Current occupational status: disabled Vitals/I&O/Wt Last Vital Signs Temp 97.8 F 07/08/20 17:06 Pulse 81 07/08/20 17:36 Resp 18 07/08/20 17:36 BP 175/81 07/08/20 17:36 Pulse Ox 98 07/08/20 17:37 Weight last 48 hrs Weight 330 lb Physical Exam Narrative: EXAM NARRATIVE: GENERAL: Patient is alert, awake and oriented x3. [] NECK: No jugular vein distension. [] HEENT: No cyanosis. No icterus. No pallor. [] HEART: Regular S1 and S2. No murmur, rub or gallop. [] LUNGS: Clear to auscultate bilaterally. [] ABDOMEN: Soft, nontender and nondistended. Positive bowel sounds. No guarding, rebound or tenderness. [] CENTRAL NERVOUS SYSTEM: Grossly nonfocal. [] EXTREMITIES: Lower extremities with 1+ edema bilaterally. Pulses palpable in the lower extremities, both dorsalis pedis and posterior tibial. [] Data : 07/09/20 05:22 07/09/20 05:22 A&P Assessment and plan (1) Acute posterior myocardial infarction: Status: Acute (2) Obesity, morbid (more than 100 lbs over ideal weight or BMI > 40): Status: Acute (3) Diabetic peripheral neuropathy associated with type 2 diabetes mellitus: Status: Acute (4) Hypertension: Status: Acute (5) Insulin dependent type 2 diabetes mellitus: Status: Acute Patient has presented with typical chest pain symptoms with acute posterior CO. His SVG to OM was occluded and was the culprit for CO. SVG to RCA is chronically occluded. JIMÉNEZ to LAD was patent. He underwent successful revascularization with BRYCE x4 from left main to distal left circumflex artery. Transfer to ICU Continue Aggrastat for 12 hours. Patient loaded with aspirin and Plavix. Continue Order echocardiogram High intensity statin therapy IV fluids for 18 hours as patient had significant contrast use. Monitor renal function closely. Will hold off on nephrotoxic medications. We will consult hospitalist team for help with management of diabetes. Appreciate the recommendations. Attestations Medical Necessity Statement*: Care expected to cross 2 midnights. Patient had Acute posterior wall CO s/p successful revascularization with BRYCE x 4 Coding Level of Care Code Acute Distance Education Coordinator for [facility] Fwd Diagnoses Acute posterior myocardial infarction I21.29 Obesity, morbid (more than 100 lbs over ideal weight or BMI > 40) E66.01 Diabetic peripheral neuropathy associated with type 2 diabetes mellitus E11.42 Hypertension I10 Insulin dependent type 2 diabetes mellitus E11.9; Z79.4
[2020-07-08 18:24] LABS: Troponin(5th) Baseline 115 ng/L (0-15)
[2020-07-08 18:37] LABS: Alanine Aminotransferase 17 U/L (0-41); Albumin Level 4.5 g/dL (3.5-5.2); Alkaline Phosphatase 103 IU/L (40-130); Anion Gap 15.6 (5-19); Aspartate Amino Transferase 15 U/L (0-40); Blood Urea Nitrogen 19 mg/dL (8-23); Calcium 9.5 mg/dL (8.5-10.5); Carbon Dioxide 27 mmol/L (22-29); Chloride 98 mmol/L (98-107); Globulin 3.1 g/dL (1.3-4.6); Glomerular Filtration Rate 55.6 mL/min (90-130); Glucose 190 mg/dL (65-115); NT Pro B Type Natriuretic Pept 632 pg/mL (0-125); Osmolality Calculated 291 mOsm/kg (285-295); Potassium 3.6 mmol/L (3.5-5.1); Sodium 137 mmol/L (136-145); Total Bilirubin 0.9 mg/dL (0.15-1.2); Total Protein 7.6 g/dL (6.6-8.7)
[2020-07-08] MEDS: sodium chloride 0.9% 1,000 ML 100 ML IV (21:00)
[2020-07-08] MEDS: metoprolol tartrate 50 mg Tablet PO (22:16)
[2020-07-08] MEDS: atorvastatin 40 mg Tablet 80 MG PO (22:16)
[2020-07-08 22:30] LABS: Glucose Point of Care 197 mg/dL (70-110)
--- NOTE | 2020-07-08 22:30 | PM.CONSULT ---
Providers/Reason For Consult Consulting Physican/Specialty*: Cardiology Reason for Consult*: Management of type 2 diabetes, hypertension Attending Physician: Paul Dove M.D Primary Care Provider: Celina Fofana MD History of Present Illness History of Present Illness Murray Harp is a 64 year old male with past medical history of CABG, PCI, hypertension, insulin-dependent diabetes, hypothyroidism, GERD, peripheral neuropathy, who presents [facility] due to chest pain. Patient had unstable angina, was taken to the cardiac catheterization lab after being loaded with aspirin, Plavix, statin, patient had [address] Dove. Medical team has been consulted for medical management, type 2 diabetes. Currently patient is in the ICU, he is having some chest soreness, but overall is doing better, no fevers, no cough, no exposure to COVID-19, his blood sugars have been well controlled between 100-200, he has an yan on his phone he checks his blood sugars quite regularly, last hemoglobin A1c was 6.5 Review of Systems Const: Denies: fever(s), chills, fatigue or malaise Eyes: Denies: change in vision or blurry vision ENMT: Denies: nasal congestion Card: Reports: chest pain Resp: Denies: dyspnea, productive cough, non-productive cough or wheezing GI: Denies: abdominal pain, nausea, vomiting, hematemesis, diarrhea, constipation, hematochezia or melena : Denies: flank pain, difficulty urinating, dysuria or urinary frequency Musc: Denies: neck pain or back pain Skin/Breast: Denies: rash Neuro: Denies: headache(s), dizziness or vertigo Endo: Denies: polyuria or polydipsia Meds/Allergies Home Medications and Allergies Home Medications Medication Instructions Recorded Confirmed Last Taken Type amlodipine 5 mg PO DAILY 07/08/20 07/08/20 07/08/20 History aspirin 81 mg PO DAILY 07/08/20 07/08/20 07/08/20 History atorvastatin 80 mg PO DAILY 07/08/20 07/08/20 07/07/20 History clopidogrel 75 mg PO DAILY 07/08/20 07/08/20 07/08/20 History gabapentin 300 mg PO TID 07/08/20 07/08/20 07/08/20 History hydrochlorothiazide 25 mg PO DAILY 07/08/20 07/08/20 07/08/20 History insulin aspart U-100 [Novolog 20 unit SUBCUT TIDWM 07/08/20 07/08/20 Unknown History Flexpen U-100 Insulin] insulin degludec [Tresiba 50 unit SUBCUT DAILY 07/08/20 07/08/20 07/07/20 History FlexTouch U-100] isosorbide mononitrate 120 mg PO DAILY 07/08/20 07/08/20 07/08/20 History levothyroxine 175 mcg PO DAILY 07/08/20 07/08/20 07/08/20 History lisinopril 20 mg PO DAILY 07/08/20 07/08/20 07/08/20 History metformin 500 mg PO BID 07/08/20 07/08/20 07/08/20 History metoprolol tartrate 25 mg PO BID 07/08/20 07/08/20 07/08/20 History pantoprazole 40 mg PO DAILY 07/08/20 07/08/20 07/08/20 History Allergies Allergy/AdvReac Type Severity Reaction Status Date / Time No Known Allergies Allergy Verified 05/18/20 07:59 Current Medications Current Medications Generic Name Dose Route Start Last Admin Trade Name Freq PRN Reason Stop Dose Admin Atorvastatin Calcium 80 mg 07/08/20 22:15 07/08/20 22:16 Atorvastatin 40 Mg Tablet PO 80 mg BEDTIME MICHELLE Administration Metoprolol Tartrate 50 mg 07/08/20 22:15 07/08/20 22:18 Metoprolol Tartrate 50 Mg Tablet PO Not Given BID@0900,2100 [facility] PFSH Acute PFSH: Medical History (Updated 07/08/20 @ 22:37 by Yohannes Mreino MD) Coronary artery disease Gastroesophageal reflux disease Hypertension Hypothyroidism Percutaneous transluminal coronary angioplasty (PTCA) within last 14 to 24 months Sleep apnea Surgical History History of coronary artery bypass graft x 3 Family History (Updated 07/08/20 @ 22:33 by Yohannes Merino MD) Mother Diabetes Hyperlipidemia Hypertension Father CAD (coronary artery disease) Hyperlipidemia Hypertension Diabetes Social History Smoking and tobacco status: never smoked Alcohol intake: never Current occupational status: disabled Vitals/I&O/Wt Last Vital Signs Temp 97.9 F 07/08/20 20:45 Pulse 74 07/08/20 20:55 Resp 26 H 07/08/20 20:55 BP 145/92 07/08/20 20:55 Pulse Ox 92 07/08/20 20:55 Weight last 48 hrs Weight 149.685 kg Physical Exam Const: COMMON NORMALS: no acute distress and patient oriented x3 GENERAL APPEARANCE: cooperative and comfortable HENMT: COMMON NORMALS: normocephalic HEAD & SCALP: normocephalic Eye: COMMON NORMALS: Equal, round and reactive pupils present and EOMs intact bilaterally GENERAL EYE: appearance normal, both eyes and all related structures PUPIL: Yes Equal, round and reactive pupils present Neck/C-Spine: COMMON NORMALS: full ROM, no lymphadenopathy, no JVD and Thyroid normal THYROID: Thyroid normal Lymph: LYMPHATIC: no lymphadenopathy noted Resp: COMMON NORMALS: normal respiratory effort, No retractions, No use of accessory muscles and clear to auscultation bilaterally AUSCULTATION: clear to auscultation bilaterally Cardio: COMMON NORMALS: no JVD, regular rate, regular rhythm, S1 normal heart sound present, S2 normal heart sound present, No gallops present (Cardio), No clicks present (Cardio) and No murmurs present (Cardio) RATE: regular rate RHYTHM: regular rhythm HEART SOUNDS: S1 normal heart sound present and S2 normal heart sound present GI: COMMON NORMALS: Normal to inspection, nondistended, normoactive bowel sounds present, Soft to palpation, non-tender and No hepatosplenomegaly present PALPATION: Yes Soft to palpation and Yes No hepatosplenomegaly present Extremity: COMMON NORMALS: normal to inspection, full ROM and no pedal edema Neuro: COMMON NORMALS: patient oriented x3, CN's II-XII intact bilaterally, moves all extremities and no focal motor deficits Psych: COMMON NORMALS: mental status grossly normal, Normal thought process present and cooperative THOUGHT PROCESS: Normal thought process present A&P Assessment and plan (1) Unstable angina pectoris: Status post 4 stents placement, on aspirin, Plavix, beta-barrett, statin Status: Acute (2) Insulin dependent type 2 diabetes mellitus: Landonight I have reduced his Lantus dose to 20 units at bedtime, continue NovoLog 20 units 3 times daily, with sliding scale Status: Acute (3) Hypertension: Holding lisinopril hydrochlorothiazide given creatinine 1.3 Status: Acute (4) Hypothyroidism: Continue levothyroxine Status: Acute Additional A&P Information Full code, Lovenox for DVT prophylaxis starting after sheath is removed Coding Level of Care Code Acute Key Account Executive 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
[2020-07-08] MEDS: insulin glargine 100 units/1 mL 20 UNIT SUBCUT (23:49)
[2020-07-08] MEDS: temazepam 15 mg Capsule PO (23:55)
[2020-07-09] VITALS (128 sets, daily range): BP systolic 106–160; BP diastolic 62–99; PULSE 68–139; RESP 6–40; TEMP 36.5–37.8; O2SAT 85–97; BMI 49.8
[2020-07-09 00:59] LABS: Troponin 5 6HR 959.5 ng/L (0-15); Troponin 5 6HR Delta 844.5 ng/L (0-12)
[2020-07-09 06:05] LABS: Basophils # 0.1 10^3/uL (0.0-0.1); Basophils % 0.9 %; Eosinophils # 0.1 10^3/uL (0.0-0.8); Eosinophils % 1.1 %; Hemoglobin 12.1 g/dL (11.7-16.6); Lymphocytes # 0.8 10^3/uL (0.8-4.8); Lymphocytes % 8.9 %; Mean Corpuscular HGB Conc 32.7 g/dL (30.0-36.0); Mean Corpuscular Hemoglobin 29.6 pg (28.0-34.0); Mean Corpuscular Volume 90.5 fL (80-94); Mean Platelet Volume 10.2 fL (7.4-10.4); Monocytes # 0.6 10^3/uL (0.2-0.9); Monocytes % 6.6 %; Neutrophils # 7.65 10^3/uL (1.8-7.7); Neutrophils % 82.1 %; Nucleated Red Blood Cells % 0 %; Platelet Count 202 10^3/cmm (130-400); Red Blood Count 4.09 10^6/uL (4.1-5.3); Red Cell Distribution Width 15.9 % (12.1-15.1); White Blood Count 9.3 10^3/uL (4.0-10.0)
[2020-07-09] MEDS: ondansetron 2 mg/ML SDV 2 mL 4 MG IVP ×2 (06:20→11:28)
[2020-07-09 06:30] LABS: Anion Gap 13.9 (5-19); Blood Urea Nitrogen 17 mg/dL (8-23); Calcium 8.3 mg/dL (8.5-10.5); Carbon Dioxide 26 mmol/L (22-29); Chloride 101 mmol/L (98-107); Glomerular Filtration Rate 67.4 mL/min (90-130); Glucose 184 mg/dL (65-115); Osmolality Calculated 290 mOsm/kg (285-295); Potassium 3.9 mmol/L (3.5-5.1); Sodium 137 mmol/L (136-145)
[2020-07-09 06:38] LABS: Add Urine Microscopic? NO; Bilirubin Urine Neg (Negative); Blood Urine Neg (Negative); Glucose Urine UA Norm (Normal); Ketones Urine Negative (Negative); Leukocyte Esterase Urine Negative (Negative); Nitrate Urine Negative (Negative); Protein Urine Neg (Negative); Specific Gravity, Urine 1.005 (1.005-1.030); Urine Appearance Clear (CLEAR); Urine Color Yellow (Yellow); Urobilinogen Urine Norm (Negative); pH Urine 5 (5-7)
--- NOTE | 2020-07-09 06:53 | ECG_ITS ---
[facility] Test Date: 2020-07-09 Pat Name: Murray Harp Department: Room: 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 Measurements Intervals [place] Rate: 83 P: 70 PA: 171 QRS: -15 QRSD: 90 T: 72 QT: 344 QTc: 405 Interpretive Statements SINUS RHYTHM NONSPECIFIC ST & T-WAVE ABNORMALITY Compared to ECG 07/08/2020 17:06:38 T-wave abnormality now present ST (T wave) deviation no longer present Electronically Signed On 07-09-2020 22:40:13 CDT by Sarah Galvan M.D. [id number]
[2020-07-09 06:54] LABS: Glucose Point of Care 222 mg/dL (70-110)
[2020-07-09] MEDS: nitroglycerin drip 50 MG/250 ML PREMIX IV (06:57)
--- NOTE | 2020-07-09 07:13 | PC.NURSE ---
Pt developed 5/10 chest pressure this a.m. Dr. Brand called, order received for EKG and Nitroglycerin drip. Ntg drip initiated. Awaiting EKG. Report given to a.m nurse.
[2020-07-09] MEDS: fentaNYL 50 mcg/mL INJ 2mL IVP (08:10)
--- NOTE | 2020-07-09 08:43 | P.PN_ITS ---
Subjective Subjective: Interval history: Patient underwent a successful revascularization from left main and distal left circumflex artery with BRYCE x4. This morning I was called that he is again having chest discomfort. Patient was evaluated. His chest pain is pleuritic. EKG does not have any ischemic changes. We repeated a troponin which has not trended up during the last 6 hours. He is also nauseous. Vitals/I&O/Wt Last Vital Signs Temp 97.7 F 07/09/20 03:00 Pulse 83 07/09/20 06:30 Resp 35 H 07/09/20 06:30 BP 145/78 07/09/20 06:30 Pulse Ox 93 07/09/20 06:30 07/08/20 07/09/20 07/09/20 21:59 06:59 14:59 Intake Total Output Total Balance Weight last 48 hrs Weight 338 lb Weight 338 lb Weight 330 lb Physical Exam Narrative: EXAM NARRATIVE: GENERAL: Patient is alert, awake and oriented x3. [] NECK: No jugular vein distension. [] HEENT: No cyanosis. No icterus. No pallor. [] HEART: Regular S1 and S2. No murmur, rub or gallop. [] LUNGS: Clear to auscultate bilaterally. [] ABDOMEN: Soft, nontender and nondistended. Positive bowel sounds. No guarding, rebound or tenderness. [] CENTRAL NERVOUS SYSTEM: Grossly nonfocal. [] EXTREMITIES: Lower extremities with 1+ edema bilaterally. Pulses palpable in the lower extremities, both dorsalis pedis and posterior tibial. [] Data : 07/09/20 05:22 07/09/20 05:22 A&P Assessment and plan (1) Acute posterior myocardial infarction: Status: Acute (2) Obesity, morbid (more than 100 lbs over ideal weight or BMI > 40): Status: Acute (3) Diabetic peripheral neuropathy associated with type 2 diabetes mellitus: Status: Acute (4) Hypertension: Status: Acute (5) Insulin dependent type 2 diabetes mellitus: Status: Acute Patient has presented with typical chest pain symptoms with acute posterior IN. His SVG to OM was occluded and was the culprit for IN. SVG to RCA is chronically occluded. JIMÉNEZ to LAD was patent. He underwent successful revascularization with BRYCE x4 from left main to distal left circumflex artery. Continue aspirin and Plavix. His chest pain is pleuritic in nature. Will obtain echocardiogram. Troponins have not trended up since last night. EKG has normalized. Will administer Zofran for nausea. High intensity statin therapy Amlodipine restarted. We will uptitrate beta-blockers. IV fluids for 18 hours as patient had significant contrast use. Monitor renal function closely. Will hold off on nephrotoxic medications. Hospitalist team helping with management of medical issues. Appreciate their input. Attestations Medical Necessity Statement*: Care expected to cross 2 midnights. Patient had acute posterior IN. He is status post successful revascularization with BRYCE x4. Coding Level of Care Code Acute Dental Equipment Technician for [facility] Fwd Diagnoses Acute posterior myocardial infarction I21.29 Obesity, morbid (more than 100 lbs over ideal weight or BMI > 40) E66.01 Diabetic peripheral neuropathy associated with type 2 diabetes mellitus E11.42 Hypertension I10 Insulin dependent type 2 diabetes mellitus E11.9; Z79.4
[2020-07-09] MEDS: sodium chloride 0.9% 1,000 ML 100 ML IV (08:44)
[2020-07-09] MEDS: clopidogrel 75 mg Tablet PO (08:47)
[2020-07-09] MEDS: aspirin 81 mg EC Tablet PO (08:47)
[2020-07-09] MEDS: levothyroxine 175 mcg Tablet PO (08:48)
[2020-07-09] MEDS: gabapentin 300 mg Capsule PO ×2 (08:48→21:33)
[2020-07-09] MEDS: pantoprazole DR 40 mg Tablet PO (08:48)
[2020-07-09] MEDS: metoprolol tartrate 50 mg Tablet PO ×2 (08:49→21:34)
[2020-07-09] MEDS: amlodipine 5 mg Tablet 10 MG PO (08:49)
[2020-07-09 09:51] LABS: Troponin T (5th) Once 992 ng/L (0-15)
--- NOTE | 2020-07-09 09:55 | PC.CHAP ---
Pastoral Care Encounter/Spiritual Assessment Type of Contact [] Declined technology coordinator visit [] Patient/Family/Request visit [] Outpatient visit [] Follow-up visit [] Physician referral [] Code/Alert [X] Routine visit [] Staff referral [] Actively dying [] Patient sleeping [] Family support [] [] Out of room [] Palliative care [] [] Receiving care in room [] Pre-surgical visit [] Trauma [] Long length of stay [] ICU visit [] Other: Relational/Emotional Strength [x] Patient feels connected with others/family/visitors/staff [] Distress [] Loneliness/isolation [] Abandonment Spirituality of Patient [] Person of Nicki [] Attends Sikhism of their Nicki [x] Believes in Prayer [] Reads Bible or Jew materials [] There are Spiritual issues to be addressed Health Lead Interventions [x] Prayer [x] Active listening [x] Non-anxious presence [x] Spiritual/emotional support [] Crisis/trauma care [] Spiritual counseling [] Bereavement support [] Provided bereavement packet [] Provided Bible/devotional materials [] Provided toy/stuffed animal, coloring book to patient or family member [] Provided Communion [] Anointing/[place] [] Salvation [x] Completed spiritual assessment [] Other: Impact on Illness or Injury [] Angry [] Fearful [] Anxious [] Often cries [] Exhaustion [] Unable to work [] Unable to attend christianity [] Unable to walk/stand [] Unable to read [] Unable to drive [] Unable to eat/drink [] Unable to sleep [] Unable to be with family [] Patient intubated [] Other: Summary Pt stated he felt terrible and was not talkative. Did indicate he has a daughter who will be arriving soon to bring him a phone speech scientist and to visit. Prayer offered and accepted Time spent with patient 5m
--- NOTE | 2020-07-09 10:30 | PC.NURSE ---
c/o chest pain in chest at change of shift ekg done at this time head of bed elevated Dr called after exam done appears to be more pluritic . Order for fentynl given one time chest pain some nausea noted also
[2020-07-09 10:57] LABS: Estmated Average Glucose 140; Hemoglobin A1C 6.5 % (4.0-6.0)
[2020-07-09 11:48] LABS: Glucose Point of Care 218 mg/dL (70-110)
--- NOTE | 2020-07-09 13:22 | PM.PN ---
Subjective Subjective: Interval history: Patient was seen and examined this morning patient is currently complaining of chest discomfort at rest, consideration is being given to pericarditis, he is also feeling nauseous His blood sugars have been running high, hemoglobin A1c 6.5, POC glucose 218 and 222mg/dl Hemodynamically stable, on nitro drip Patient is stating that at home he takes 50 units of Tresiba along 20 units of Humalog before meals with sliding Vitals/I&O/Wt Last Vital Signs Temp 97.7 F 07/09/20 03:00 Pulse 87 07/09/20 10:00 Resp 21 H 07/09/20 10:00 BP 156/84 07/09/20 10:00 Pulse Ox 96 07/09/20 10:00 07/08/20 07/09/20 07/09/20 21:59 06:59 14:59 Intake Total 1200 / 1200 Output Total Balance 1200 / 1200 Weight last 48 hrs Weight 153.314 kg Weight 153.314 kg Weight 149.685 kg Physical Exam Narrative: EXAM NARRATIVE: Morbidly obese male was in semi-Vinson position when I entered the room was saturating well on 3 L nasal cannula on nitro drip complaining of chest discomfort S1, S2 no overt signs of fluid overload No lower extremity edema Distended abdomen, obesity, nontender Bilateral breath sounds without respiratory distress no audible wheezing or stridor Distressed secondary to pain No joints EOMI, PERRLA no neurological deficit Data : 07/09/20 05:22 07/09/20 05:22 A&P Assessment and plan (1) Acute posterior myocardial infarction: Status: Acute (2) Hypothyroidism: Status: Acute (3) Hypertension: Status: Acute (4) Insulin dependent type 2 diabetes mellitus: Status: Acute Additional A&P Information Suboptimally controlled type 2 diabetes Patient is stating that he takes 15 units of Tresiba along 20 units premeal with sliding scale at home His POC glucose has been running high glucose 140s -180 in the hospital Hemoglobin A1c 6.5 If he is able to tolerate diet I will keep his Lantus as 40 units along 20 units premeal and sliding scale, if he is feeling nauseous and not eating well would recommend skipping 20 units premeal and just relying on sliding scale Lantus has not shown to cause hypoglycemia in the hospital settings, if he stays nauseous can do Accu-Cheks every 6 hours instead of with meals Change diet to consistent cardiac carb today Acute NV status post 4 stents: Patient is complaining of active chest pain currently on nitro drip concern for post NV complication with pericarditis, currently on aspirin, Plavix atorvastatin, NSAIDs contraindication post NV, Will request CRP and LDH Along CPK Management as per cardiology Hypothyroidism: Continue levothyroxine 175mcg RILEY resolved Full code Consistent carb/cardiac diet DVT prophylaxis: Lovenox Attestations Medical Necessity Statement*: As per cardiology Time Spent in Patient Care: 30mins Coding Level of Care Code Acute 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
--- NOTE | 2020-07-09 13:23 | PC.NURSE ---
continue chest disomfort and nausea zofran given
[2020-07-09 16:42] LABS: Glucose Point of Care 152 mg/dL (70-110)
[2020-07-09] MEDS: enoxaparin 40 mg/0.4 mL Syringe SUBCUT (16:46)
[2020-07-09] MEDS: atorvastatin 40 mg Tablet 80 MG PO (21:33)
--- NOTE | 2020-07-09 21:40 | USCV_ITS ---
Loyd Murray Age: 64 Gender: M : 1955 Exam Date: 07/09/2020 14:18 Ordering Phys: Paul Dove M.D ([email or web address]) Technologist: Maude Hernandez [place] [facility] [place]: POST OK BP: 158 / 83 HR: 85 Rhythm: Sinus Technical Quality: Technically difficult study MEASUREMENTS (Male / Female) Normal Values 2D ECHO LV Diastolic Diameter PLAX 4.4 cm 4.2 - 5.9 / 3.9 - 5.3 cm LV Systolic Diameter PLAX 3.1 cm LV Chamber Size 4.8 cm IVS Diastolic Thickness 1.4 cm 0.6 - 1.0 / 0.6 - 0.9 cm IVS Systolic Thickness 1.8 cm LVPW Diastolic Thickness 1.3 cm 0.6 - 1.0 / 0.6 - 0.9 cm LVPW Systolic Thickness 1.4 cm RV Chamber Size 3.4 cm LV Ejection Fraction 2D Teich 55.6 % LA Diameter 5.0 cm LA Width 4.4 cm LA Height 6.3 cm RA Width 3.6 cm RA Height 5.2 cm M-MODE LV Diastolic Diameter MM 5.0 cm 4.2 - 5.9 / 3.9 - 5.3 cm LV Systolic Diameter MM 3.2 cm LV Ejection Fraction MM Teich 65.7 % IVS Diastolic Thickness MM 1.7 cm 0.6 - 1.0 / 0.6 - 0.9 cm IVS Systolic Thickness MM 1.6 cm LVPW Diastolic Thickness MM 2.2 cm 0.6 - 1.0 / 0.6 - 0.9 cm LVPW Systolic Thickness MM 2.2 cm RV Diastolic Diameter MM 1.1 cm Aortic Annulus Diameter 3.6 cm LA Ao Ratio MM 1.4 MV E Point Septal Separation 0.5 cm DOPPLER AV Peak Velocity 114.0 cm/s LVOT Peak Velocity 105.0 cm/s MV Area PHT 4.5 cm squared Mitral E to A Ratio 1.0 MV E' Velocity 52.0 cm/s Mitral E to MV E' Ratio 8.8 Mitral E to LV E' Lateral Ratio 8.1 Mitral E to LV E' Septal Ratio 9.8 TV Peak E Velocity 80.0 cm/s Right Atrial Pressure 3.0 mmHg PV Peak Velocity 119.0 cm/s RV Acceleration Time 0.1 s RV Ejection Time 0.2 s RV AcT/ET 0.2 FINDINGS Left Ventricle Normal left ventricular size. LVsystolic function is borderline normal with EF of 50-55%. Mild to moderate hypokinesis of inferior and inferolateral wall. Normal diastolic filling pattern. Right Ventricle The right ventricle is normal in size and function. Right Atrium The right atrium is normal in size. Left Atrium The left atrium is normal in size. Mitral Valve Structurally normal mitral valve without significant stenosis or prolapse. There is no mitral regurgitation. Aortic Valve Structurally normal aortic valve without significant sclerosis or stenosis. There is no aortic regurgitation. Tricuspid Valve Structurally normal tricuspid valve without significant stenosis or regurgitation. Insufficient TR jet to calculate RVSP Pulmonic Valve Structurally normal pulmonic valve without significant stenosis. There is no pulmonic regurgitation. Pericardium Normal pericardium without effusion. Aorta Normal ascending aorta dimension. CONCLUSIONS LV systolic function is borderline normal with EF of 50-55%. Above mentioned regional wall motion abnormalities Diastolic function is normal No significant valvular heart disease No comparison studies are available Paul Dove MD (Electronically Signed) Final Date: 11 July 2020 08:45 S
--- NOTE | 2020-07-09 22:04 | PC.NURSE ---
Glucose Pt scanned device on abdomen. Glucose reading on phone was 177. Pt has not taken anything oral today besides water. Nausea with emesis throughout today. Continues to complain of nausea without emesis. Refuses to eat at this time. Dr. Merino notified by phone and orders received to hold PM Lantus and sliding scale.
[2020-07-10] VITALS (42 sets, daily range): BP systolic 97–164; BP diastolic 49–118; PULSE 67–90; RESP 16–39; TEMP 36.6–37.4; O2SAT 89–96
[2020-07-10 07:52] LABS: Glucose Point of Care 172 mg/dL (70-110)
[2020-07-10] MEDS: clopidogrel 75 mg Tablet PO (09:30)
[2020-07-10] MEDS: pantoprazole DR 40 mg Tablet PO (09:30)
[2020-07-10] MEDS: aspirin 81 mg EC Tablet PO (09:30)
[2020-07-10] MEDS: levothyroxine 175 mcg Tablet PO (09:30)
[2020-07-10] MEDS: gabapentin 300 mg Capsule PO ×3 (09:30→20:37)
[2020-07-10] MEDS: amlodipine 5 mg Tablet 10 MG PO (09:31)
[2020-07-10] MEDS: metoprolol tartrate 50 mg Tablet PO (09:32)
--- NOTE | 2020-07-10 09:50 | PC.CHAP ---
Pastoral Care Encounter/Spiritual Assessment Type of Contact [] Declined hearing aid consultant visit [] Patient/Family/Request visit [] Outpatient visit [] Follow-up visit [] Physician referral [] Code/Alert [x] Routine visit [] Staff referral [] Actively dying [] Patient sleeping [] Family support [] [] Out of room [] Palliative care [] [] Receiving care in room [] Pre-surgical visit [] Trauma [] Long length of stay [x] ICU visit [] Other: Relational/Emotional Strength [] Patient feels connected with others/family/visitors/staff [] Distress [] Loneliness/isolation [] Abandonment Spirituality of Patient [] Person of Nicki [] Attends Hindu of their Nicki [] Believes in Prayer [] Reads Bible or Judaism materials [] There are Spiritual issues to be addressed Supervisor Fur Dressing Interventions [x] Prayer [x] Active listening [x] Non-anxious presence [x] Spiritual/emotional support [] Crisis/trauma care [] Spiritual counseling [] Bereavement support [] Provided bereavement packet [] Provided Bible/devotional materials [] Provided toy/stuffed animal, coloring book to patient or family member [] Provided Communion [] Anointing/[place] [] Salvation [x] Completed spiritual assessment [] Other: Impact on Illness or Injury [] Angry [] Fearful [] Anxious [] Often cries [] Exhaustion [] Unable to work [] Unable to attend sikhism [] Unable to walk/stand [] Unable to read [] Unable to drive [] Unable to eat/drink [] Unable to sleep [] Unable to be with family [] Patient intubated [] Other: Summary patient appreciated all the care the hospital is giving him.. feeling somewhat better Time spent with patient 10 min
[2020-07-10 10:19] LABS: Basophils # 0.1 10^3/uL (0.0-0.1); Basophils % 0.8 %; Eosinophils # 0.2 10^3/uL (0.0-0.8); Hemoglobin 11.9 g/dL (11.7-16.6); Lymphocytes # 1.2 10^3/uL (0.8-4.8); Lymphocytes % 16.4 %; Mean Corpuscular HGB Conc 33.1 g/dL (30.0-36.0); Mean Corpuscular Hemoglobin 30.1 pg (28.0-34.0); Mean Corpuscular Volume 91.1 fL (80-94); Mean Platelet Volume 9.8 fL (7.4-10.4); Monocytes # 0.6 10^3/uL (0.2-0.9); Monocytes % 8.9 %; Neutrophils # 4.97 10^3/uL (1.8-7.7); Neutrophils % 70.5 %; Nucleated Red Blood Cells % 0 %; Platelet Count 172 10^3/cmm (130-400); Red Blood Count 3.95 10^6/uL (4.1-5.3); Red Cell Distribution Width 16.1 % (12.1-15.1); White Blood Count 7.1 10^3/uL (4.0-10.0)
[2020-07-10 10:34] LABS: Anion Gap 11.2 (5-19); Blood Urea Nitrogen 15 mg/dL (8-23); Calcium 7.9 mg/dL (8.5-10.5); Carbon Dioxide 27 mmol/L (22-29); Chloride 99 mmol/L (98-107); Glomerular Filtration Rate 67.4 mL/min (90-130); Glucose 172 mg/dL (65-115); Osmolality Calculated 283 mOsm/kg (285-295); Potassium 3.2 mmol/L (3.5-5.1); Sodium 134 mmol/L (136-145)
--- NOTE | 2020-07-10 14:29 | PM.PN ---
Subjective Subjective: Interval history: Patient was seen and examined this morning, he is not complaining of active chest pain, he is off nitro drip feeling better today POC glucose within normal range Vitals/I&O/Wt Last Vital Signs Temp 99.4 F 07/10/20 08:30 Pulse 69 07/10/20 11:00 Resp 35 H 07/10/20 11:00 BP 140/72 07/10/20 11:00 Pulse Ox 94 07/10/20 11:00 07/09/20 07/10/20 07/10/20 22:59 06:59 14:59 Intake Total 1086.025 / 2436.025 0.975 / 2437.000 220 / 220 Output Total 1100 / 1400 550 / 1950 160 / 160 Balance -13.975 / 1036.025 -549.025 / 487.000 60 / 60 Weight last 48 hrs Weight 149.459 kg Weight 153.314 kg Weight 153.314 kg Weight 149.685 kg Physical Exam Narrative: EXAM NARRATIVE: Patient was laying comfortably in his bed without any active discomfort S1, S2 no active murmur appreciated no signs of heart failure Low extremity no edema gangrene ulcer Abdomen distended bloated central obesity EOMI, PERRLA No neurological deficit Pleasant mood and affect No joint swelling or skin cellulitis changes Data : 07/10/20 10:08 07/10/20 10:08 A&P Assessment and plan (1) Acute posterior myocardial infarction: Status: Acute (2) Hypothyroidism: Status: Acute (3) Hypertension: Status: Acute (4) Insulin dependent type 2 diabetes mellitus: Status: Acute Additional A&P Information Type 2 diabetes: Glucose within normal range we can continue his home regimen of sliding scale, 20 units premeal and Lantus 40 units Acute AR: No active chest pain he is off nitro drip management as per cardiology Hypertension: Currently he is normotensive Full code Cardiac diet/consistent carb Thank you for letting us participate in care of Mr. Harp, his blood sugar is normal and his symptoms have resolved, will sign off, kindly call if you have any questions. 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
[2020-07-10] MEDS: enoxaparin 40 mg/0.4 mL Syringe SUBCUT (16:01)
[2020-07-10] MEDS: sodium chloride 0.9% 1,000 ML 100 ML IV (16:01)
[2020-07-10 16:58] LABS: Glucose Point of Care 104 mg/dL (70-110)
--- NOTE | 2020-07-10 18:31 | PC.NURSE ---
cardiac monitoring not done at 1400. when nurse realized that it was not done, he was moved to another floor.
--- NOTE | 2020-07-10 20:25 | P.PN_ITS ---
Subjective Subjective: Interval history: Patient is doing well. Denies chest, pain, shortness of breath or palpitations. His blood pressure is elevated Vitals/I&O/Wt Last Vital Signs Temp 98 F 07/10/20 19:51 Pulse 86 07/10/20 19:51 Resp 28 H 07/10/20 19:51 BP 164/118 07/10/20 19:51 Pulse Ox 96 07/10/20 19:51 07/10/20 07/10/20 07/10/20 06:59 14:59 22:59 Intake Total 0.975 / 2437.000 540 / 540 350 / 890 Output Total 550 / 1950 360 / 360 420 / 780 Balance -549.025 / 487.000 180 / 180 -70 / 110 Weight last 48 hrs Weight 329 lb 8 oz Weight 338 lb Weight 338 lb Physical Exam Narrative: EXAM NARRATIVE: GENERAL: Patient is alert, awake and oriented x3. [] NECK: No jugular vein distension. [] HEENT: No cyanosis. No icterus. No pallor. [] HEART: Regular S1 and S2. No murmur, rub or gallop. [] LUNGS: Clear to auscultate bilaterally. [] ABDOMEN: Soft, nontender and nondistended. Positive bowel sounds. No guarding, rebound or tenderness. [] CENTRAL NERVOUS SYSTEM: Grossly nonfocal. [] EXTREMITIES: Lower extremities with 1+ edema bilaterally. Pulses palpable in the lower extremities, both dorsalis pedis and posterior tibial. [] Data : 07/10/20 10:08 07/10/20 10:08 A&P Assessment and plan (1) Acute posterior myocardial infarction: Status: Acute (2) Hypothyroidism: Status: Acute (3) Hypertension: Status: Acute (4) Diabetic peripheral neuropathy associated with type 2 diabetes mellitus: Status: Acute (5) Obesity, morbid (more than 100 lbs over ideal weight or BMI > 40): Status: Acute (6) Insulin dependent type 2 diabetes mellitus: Status: Acute Patient presented with typical chest pain symptoms with acute posterior DC. His SVG to OM was occluded and was the culprit for DC. SVG to RCA is chronically occluded. JIMÉNEZ to LAD was patent. He underwent successful revascularization with BRYCE x4 from left main to distal left circumflex artery. Continue aspirin and Plavix. ECHO showed normal LV systolic function. High intensity statin therapy Amlodipine restarted. We will uptitrate beta-blockers. Close monitoring of renal function. Hospitalist team helping with management of medical issues. Appreciate their input. Patient will be transferred out of ICU today Attestations Medical Necessity Statement*: Care expected to cross 2 midnights. Patient s/p successful revascularization post acute DC Coding Level of Care Code Acute Head Of Marketing Analytics for [facility] Fwd Diagnoses Acute posterior myocardial infarction I21.29 Hypothyroidism E03.9 Hypertension I10 Diabetic peripheral neuropathy associated with type 2 diabetes mellitus E11.42 Obesity, morbid (more than 100 lbs over ideal weight or BMI > 40) E66.01 Insulin dependent type 2 diabetes mellitus E11.9; Z79.4
[2020-07-10] MEDS: atorvastatin 40 mg Tablet 80 MG PO (20:38)
[2020-07-10 20:53] LABS: Glucose Point of Care 120 mg/dL (70-110)
[2020-07-10] MEDS: insulin glargine 100 units/1 mL 10 UNIT SUBCUT (21:06)
[2020-07-10] MEDS: metoprolol tartrate 50 mg Tablet 75 MG PO (21:09)
[2020-07-11] VITALS (14 sets, daily range): BP systolic 84–125; BP diastolic 50–78; PULSE 72–81; RESP 13–35; TEMP 36.3–36.8; O2SAT 92–94
[2020-07-11 05:19] LABS: Anion Gap 14.3 (5-19); Blood Urea Nitrogen 15 mg/dL (8-23); Calcium 8.1 mg/dL (8.5-10.5); Carbon Dioxide 26 mmol/L (22-29); Chloride 101 mmol/L (98-107); Glomerular Filtration Rate 67.4 mL/min (90-130); Glucose 129 mg/dL (65-115); Osmolality Calculated 289 mOsm/kg (285-295); Potassium 3.3 mmol/L (3.5-5.1); Sodium 138 mmol/L (136-145)
[2020-07-11 06:38] LABS: Glucose Point of Care 142 mg/dL (70-110)
--- NOTE | 2020-07-11 08:15 | PM.DCS ---
Discharge Providers Date of Admission: 07/08/20 17:59 Date of Discharge: July 11, 2020 Attending Provider at Admission: Paul Dove M.D Attending Provider at Discharge: Paul Dove M.D Primary Care Provider: Celina Fofana MD Diagnoses at Discharge Discharge Diagnosis (1) Acute posterior myocardial infarction: Status: Acute (2) Hypothyroidism: Status: Acute (3) Hypertension: Status: Acute (4) Diabetic peripheral neuropathy associated with type 2 diabetes mellitus: Status: Acute (5) Obesity, morbid (more than 100 lbs over ideal weight or BMI > 40): Status: Acute (6) Insulin dependent type 2 diabetes mellitus: Status: Acute Reason for Visit Reason for Visit: CHEST PAIN Brief History: 64 year old male with past medical history of hypertension, diabetes, coronary artery disease with CABG performed in 2003 and PCI performed in 2013 according to patient presents with 20 minutes of severe substernal chest pain. According to patient he started noticing chest pain that feels like something heavy sitting on the chest. No radiation. After receiving the nitro it has mildly improved but continued having significant pain. His blood pressure is elevated. He was loaded with aspirin, Plavix and heparin bolus. EKG demonstrated likely posterior SD with ST depressions in V1 and V2 and T wave inversion and ST depressions in lateral leads. He was brought emergently to Transplant Coordinator. Coronary angiography showed occlusion of SVG to RCA. SVG to OM was also occluded. This was likely the culprit for his SD. RCA had a proximal stent after which it was totally occluded. Filling with right to right collaterals in the distal vessel. JIMÉNEZ to LAD was patent. There were severe multiple lesions and left circumflex artery. Distal left main artery also had severe disease. We made a brief attempt at opening the SVG to OM. This was not successful. We then switched our plan to fix the [place] vessel. Patient underwent successful revascularization with BRYCE x4 from left main to distal left circumflex artery. At the end of procedure he had excellent stent expansion, JOSEPH-3 flow and no residual stenosis. His chest pain and EKG changes resolved. Hospital Course Hospital Course 64 year old male with past medical history of hypertension, diabetes, coronary artery disease with CABG performed in 2003 and PCI performed in 2013 according to patient presents with 20 minutes of severe substernal chest pain. According to patient he started noticing chest pain that feels like something heavy sitting on the chest. No radiation. After receiving the nitro it has mildly improved but continued having significant pain. His blood pressure is elevated. He was loaded with aspirin, Plavix and heparin bolus. EKG demonstrated likely posterior SD with ST depressions in V1 and V2 and T wave inversion and ST depressions in lateral leads. He was brought emergently to Transplant Coordinator. Coronary angiography showed occlusion of SVG to RCA. SVG to OM was also occluded. This was likely the culprit for his SD. RCA had a proximal stent after which it was totally occluded. Filling with right to right collaterals in the distal vessel. JIMÉNEZ to LAD was patent. There were severe multiple lesions and left circumflex artery. Distal left main artery also had severe disease. We made a brief attempt at opening the SVG to OM. This was not successful. We then switched our plan to fix the [place] vessel. Patient underwent successful revascularization with BRYCE x4 from left main to distal left circumflex artery. At the end of procedure he had excellent stent expansion, JOSEPH-3 flow and no residual stenosis. His chest pain and EKG changes resolved. Next morning patient started having pleuritic chest discomfort. It resolved with pain medications. EKG remained normal. Troponins trended down. Echo showed normal LV systolic function with hypokinesis of inferior and inferolateral douglas. Hospitalist team was consulted for management of diabetes. Patient did well and was discharged in a stable condition with outpatient cardiology follow-up. He will continue taking aspirin and Plavix. Physical Exam Narrative: EXAM NARRATIVE: GENERAL: Patient is alert, awake and oriented x3. [] NECK: No jugular vein distension. [] HEENT: No cyanosis. No icterus. No pallor. [] HEART: Regular S1 and S2. No murmur, rub or gallop. [] LUNGS: Clear to auscultate bilaterally. [] ABDOMEN: Soft, nontender and nondistended. Positive bowel sounds. No guarding, rebound or tenderness. [] CENTRAL NERVOUS SYSTEM: Grossly nonfocal. [] EXTREMITIES: Lower extremities with 1+ edema bilaterally. Pulses palpable in the lower extremities, both dorsalis pedis and posterior tibial. 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 Stat Exams 07/08/20 17:21 Taken CV echo complete* [id number] Routine Ultrasound 07/09/20 21:40 Taken Labs from last 24 hours 07/11/20 07/11/20 07/10/20 06:29 04:41 20:28 WBC RBC Hgb Hct MCV MCH MCHC RDW Plt Count MPV Neut % (Auto) Lymph % (Auto) Brantley % (Auto) Eos % (Auto) Baso % (Auto) Neut # (Auto) Lymph # (Auto) [place]ley # (Auto) Eos # (Auto) Baso # (Auto) Nucleated RBC % (a uto) Nucleated RBCs # Sodium 138 Potassium 3.3 L Chloride 101 Carbon Dioxide 26 Anion Gap 14.3 BUN 15 Creatinine 1.1 GFR Calculation 67.4 L Glucose 129 H POC Glucose 142 H 120 H Calculated Osmolal ity 289 Calcium 8.1 L 07/10/20 07/10/20 07/10/20 16:56 10:08 10:08 WBC 7.1 RBC 3.95 L Hgb 11.9 Hct 36.0 L MCV 91.1 MCH 30.1 MCHC 33.1 RDW 16.1 H Plt Count 172 MPV 9.8 Neut % (Auto) 70.5 Lymph % (Auto) 16.4 Brantley % (Auto) 8.9 Eos % (Auto) 3.0 Baso % (Auto) 0.8 Neut # (Auto) 4.97 Lymph # (Auto) 1.2 Brantley # (Auto) 0.6 Eos # (Auto) 0.2 Baso # (Auto) 0.1 Nucleated RBC % (a uto) 0 Nucleated RBCs # 0.0 Sodium 134 L Potassium 3.2 L Chloride 99 Carbon Dioxide 27 Anion Gap 11.2 BUN 15 Creatinine 1.1 GFR Calculation 67.4 L Glucose 172 H POC Glucose 104 Calculated Osmolal ity 283 L Calcium 7.9 L Vitals: Last Vital Signs Temp 97.4 F L 07/11/20 07:00 Pulse 80 07/11/20 07:00 Resp 18 07/11/20 07:00 BP 125/74 07/11/20 07:00 Pulse Ox 94 07/11/20 06:00 Discharge Plan Discharge Patient Disposition: Home Condition: Stable Prescriptions: New amlodipine 5 mg Tablet 10 mg PO DAILY Qty: 90 RF: 3 Continued metformin 500 mg tablet 500 mg PO BID RF: 0 levothyroxine 175 mcg tablet 175 mcg PO DAILY RF: 0 atorvastatin 80 mg tablet 80 mg PO DAILY RF: 0 lisinopril 20 mg tablet 20 mg PO DAILY RF: 0 clopidogrel 75 mg tablet 75 mg PO DAILY RF: 0 isosorbide mononitrate 120 mg tablet extended release 24 hr 120 mg PO DAILY RF: 0 pantoprazole 40 mg tablet,delayed release (DR/EC) 40 mg PO DAILY RF: 0 aspirin 81 mg Tablet,Chewable 81 mg PO DAILY RF: 0 hydrochlorothiazide 25 mg tablet 25 mg PO DAILY RF: 0 Novolog Flexpen U-100 Insulin 100 unit/mL (3 mL) insulin pen 20 unit SUBCUT TIDWM RF: 0 metoprolol tartrate 25 mg tablet 25 mg PO BID RF: 0 Tresiba FlexTouch U-100 100 unit/mL (3 mL) insulin pen 50 unit SUBCUT DAILY RF: 0 gabapentin 300 mg capsule 300 mg PO TID RF: 0 Discontinued amlodipine 5 mg tablet 5 mg PO DAILY RF: 0 Discharge Orders: Discharge Order (Routine); Ordered 07/11/20 Ordered By: Paul Dove Referrals: Celina Fofana MD [Primary Care Provider] - (Please follow-up with Reginaldo Matos (Celina Fofana is out of office) on July 19 at 10:30A.M. If you have any questions or need to schedule. Please call ) Paul Dove M.D [Physician] - 1 month (Please follow-up with Dr. Dove on August 15 at 3:30P.M. If you have any questions or need to reschedule. Please call ) Janay Shah FNP [Nurse Practitioner] - 7-10 days (Please follow-up with Janay Shah on July 18 at 8:30A.M. If you have any questions or need to reschedule. Please call ) Discharge Diet: Cardiac and Diabetic Discharge Activity: Increase activity as tolerated Patient Instructions: Amlodipine (By mouth), Left Heart Catheterization (DC), Coronary Angioplasty (DC), Diabetes Mellitus Type 2 in Adults (DC), Hypertension (DC), Post Angiogram Home Care Instructions Activity Restrictions/Additional Instructions: Please do not lift more than 5 pounds of weight for the next 5 days Discharge Attestations Time Spent in Discharge Care*: greater than 30 min Quality Metrics Clinical Quality Measures During this hospital stay, did patient experience: None Coding Level of Care Code Acute Chg FW DC note Diagnoses Acute posterior myocardial infarction I21.29 Hypothyroidism E03.9 Hypertension I10 Diabetic peripheral neuropathy associated with type 2 diabetes mellitus E11.42 Obesity, morbid (more than 100 lbs over ideal weight or BMI > 40) E66.01 Insulin dependent type 2 diabetes mellitus E11.9; Z79.4
[2020-07-11] MEDS: levothyroxine 175 mcg Tablet PO (08:40)
[2020-07-11] MEDS: amlodipine 5 mg Tablet 10 MG PO (08:40)
[2020-07-11] MEDS: metoprolol tartrate 50 mg Tablet 75 MG PO (08:40)
[2020-07-11] MEDS: gabapentin 300 mg Capsule PO (08:41)
[2020-07-11] MEDS: clopidogrel 75 mg Tablet PO (08:41)
[2020-07-11] MEDS: aspirin 81 mg EC Tablet PO (08:41)
[2020-07-11] MEDS: pantoprazole DR 40 mg Tablet PO (08:41)
[2020-07-11] MEDS: potassium chloride ER 20 mEq Tablet 40 MEQ PO (08:42)
--- NOTE | 2020-07-11 09:19 | DCPLANNER ---
IMM completed 07/11/20 @ 0912. Pt given copy of rights.
== END 2020-07-11 09:56 | disposition home or self-care (01) | DRG 246 ==
LOC: ER 17:16 → CCL 17:58 → ICU 21:05 → CSU 07-10 17:41
PROVIDERS: Internal Medicine; Admitting Provider Internal Medicine; Emergency Provider Family Medicine; PCP Internal Medicine; Visit Provider Internal Medicine
PROC: 027137Z Dilation of Coronary Artery, Two Arteries with Four or More Drug-eluting Intraluminal Devices, Percutaneous Approach (ICD-10-PCS; principal; 2020-07-08 17:00)
PROC: 027137Z Dilation of Coronary Artery, Two Arteries with Four or More Drug-eluting Intraluminal Devices, Percutaneous Approach (ICD-10-PCS; 2020-07-08 17:00)
DX: I21.29 ST elevation (STEMI) myocardial infarction involving other sites (principal); I25.810 Atherosclerosis of coronary artery bypass graft(s) without angina pectoris; Z68.42 Body mass index [BMI] 45.0-49.9, adult; I25.10 Atherosclerotic heart disease of native coronary artery without angina pectoris; I10 Essential (primary) hypertension; E11.42 Type 2 diabetes mellitus with diabetic polyneuropathy; K21.9 Gastro-esophageal reflux disease without esophagitis; E03.9 Hypothyroidism, unspecified; G47.30 Sleep apnea, unspecified; E66.01 Morbid (severe) obesity due to excess calories; Z79.4 Long term (current) use of insulin; Z79.02 Long term (current) use of antithrombotics/antiplatelets; Z79.82 Long term (current) use of aspirin
CPT/HCPCS: 36415; 36416; 71045; 80048; 80053; 81003; 82962; 83036; 83880; 84484; 85025; 85347; 85378; 93005; 93306; 93455; 94660; 96372; 99285; C1725; C1760; C1769; C1874; C1887; C1894; C9601; C9606; J1644; J1650; J1815 ×2; J2250; J2405; J3010; J3246; J3490; J7030; Q9967

== ENCOUNTER → 2020-07-18 15:49 | Outpatient (BNVA) | payer MEDICARE, SELFPAY | PROVIDERS: PCP Internal Medicine; Visit Provider Nurse Practitioner Family | DX: I21.29 ST elevation (STEMI) myocardial infarction involving other sites (principal); I25.10 Atherosclerotic heart disease of native coronary artery without angina pectoris; I10 Essential (primary) hypertension | CPT/HCPCS: 80048 ==

== ENCOUNTER → 2020-09-13 11:03 | Outpatient (BNVA) | payer MEDICARE, SELFPAY | PROVIDERS: PCP Internal Medicine; Visit Provider Specialist | DX: M25.762 Osteophyte, left knee (principal); M25.761 Osteophyte, right knee; M25.562 Pain in left knee; M25.561 Pain in right knee | CPT/HCPCS: 73560; 73565 ==

== ENCOUNTER 2021-03-08 09:47 | Outpatient (CLI) | payer MEDICARE, SELFPAY ==
--- NOTE | 2021-03-08 09:56 | MM_ITS ---
WS: [id number] BILATERAL DIGITAL DIAGNOSTIC MAMMOGRAM MAMMOGRAPHY WITH CAD CLINICAL INFORMATION: LEFT BREAST PAIN HISTORY: Small superficial palpable nodule. Possible ingrown hair. Redness of the skin surface. COMPARISON: None. TECHNIQUE: Bilateral CC, MLO, and ML views. FINDINGS: Scattered fibroglandular densities bilaterally. Palpable marker near the areola left breast. No defin ite underlying mammographic abnormality. Ultrasound is pending. A few tiny punctate calcifications. R ight breast is unremarkable. TECHNIQUE: Ultrasound left breast focused area of concern. CLINICAL INFORMATION: LEFT BREAST PAIN COMPARISON: None. FINDINGS: Ultrasound left blastic the 11:00 position in the area of concern. Small subcutaneous hypoechoic nodu lar density measuring 3 x 2.4 x 1.3 mm. No vascularity. This is nonspecific but given clinical histor y most likely represents a sebaceous cyst. Recommend 6 month follow-up to confirm resolution or stabi [place]ity. MM/[place] [id number] IMPRESSION: BI-RADS: 3-Probably Benign FOLLOW UP: 6 Month Follow-up Recommend return to annual screening mammography. ULTRASOUND BREAST LEFT IMPRESSION: BI-RADS: 3-Probably Benign FOLLOW UP: 6 Month Follow-up Recommend 6 month follow-up left diagnostic mammography and ultrasound.
== END 2021-03-08 09:48 | disposition home or self-care (01) ==
LOC: RADSHAW 09:52
PROVIDERS: PCP Internal Medicine; Visit Provider Internal Medicine
DX: N64.4 Mastodynia (principal)
CPT/HCPCS: 76642; 77066

== ENCOUNTER 2021-08-27 15:10 | Emergency (ER) | payer MEDICARE, SELFPAY ==
--- NOTE | 2021-08-27 | USR_ITS ---
PROCEDURE INFORMATION: Exam: US Scrotum Exam date and time: 08/27/2021 4:46 PM Age: 65 years old Clinical indication: Scrotum pain; Additional info: Swollen and painful TECHNIQUE: Imaging protocol: Real-time ultrasound of the scrotum and contents with color Doppler and image documentation. COMPARISON: US Renal Kidney Structu* [id number] 02/27/2015 3:49 PM FINDINGS: Right testicle: The right testicle measures 4.9 x 3.0 x 2.0 cm with normal blood flow. Left testicle: The left testicle measures 5.0 x 3.1 x 3.3 cm with diffusely increased blood flow. Epididymides: The left epididymis is enlarged, inhomogenous, and hypervascular. The right epididymis is normal. Scrotum: Moderate left and small right hydroceles. No varicocele. US/US scrotum [id number] IMPRESSION: 1. Findings consistent with left epididymitis. 2. Hyperemia in the left testicle. Mild left orchitis is not excluded. 3. Moderate left and small right hydroceles.
[2021-08-27 15:22] VITALS: BP 152/85; PULSE 99; RESP 18; TEMP 38; O2SAT 94; BMI 48.7
[2021-08-27 16:30] LABS: Protein Urine Trace (Negative); Specific Gravity, Urine 1.015 (1.005-1.030); Urine Appearance Hazy (CLEAR); Urine Color Dark Yellow (Yellow); pH Urine 5 (5-7)
[2021-08-27 16:31] LABS: Basophils # 0.1 10^3/uL (0.0-0.1); Basophils % 0.6 %; Eosinophils % 0.3 %; Hemoglobin 12.4 g/dL (11.7-16.6); Lymphocytes # 1.1 10^3/uL (0.8-4.8); Lymphocytes % 8.5 %; Mean Corpuscular HGB Conc 31.8 g/dL (30.0-36.0); Mean Corpuscular Hemoglobin 28.4 pg (28.0-34.0); Mean Corpuscular Volume 89.2 fl (80-94); Mean Platelet Volume 9.9 fL (7.4-10.4); Monocytes # 1.2 10^3/uL (0.2-0.9); Neutrophils # 10.59 10^3/uL (1.8-7.7); Neutrophils % 81.2 %; Nucleated Red Blood Cells % 0 %; Platelet Count 236 10^3/cmm (130-400); Red Blood Count 4.37 10^6/uL (4.1-5.3); Red Cell Distribution Width 16.9 % (12.1-15.1); White Blood Count 13.1 10^3/uL (4.0-10.0)
[2021-08-27 16:31] LABS: Add Urine Microscopic? YES; Bilirubin Urine Neg (Negative); Blood Urine Neg (Negative); Glucose Urine UA 4+ (Normal); Ketones Urine Negative (Negative); Leukocyte Esterase Urine 2+ (Negative); Nitrate Urine Positive (Negative); Urobilinogen Urine 1 mg/dL (Negative)
[2021-08-27 16:32] LABS: Add Urine Culture? Yes; Bacteria Urine 3+ /hpf; WBC Urine >100 /hpf (0-5)
--- NOTE | 2021-08-27 16:38 | W.ED.MALEGU ---
Documented by User: Torsten Miller DO 08/30/21 07:00 HPI - Male Genitourinary General: Chief complaint: Urogenital-Male Stated complaint: Testicular swelling Time Seen by Provider: 08/27/21 16:14 Source: patient Mode of arrival: ambulatory Limitations: no limitations History of Present Illness: 65-year-old male presents emergency room complaining of left testicle pain and swelling. This began about 4 days ago and is gotten progressively worse since then. It is now uncomfortably large and swollen he is also had difficulty with urine control sudden worsening dribbling of his urine. He has not had any fever sweats or chills he generally has not felt well. Patient does have diabetes mellitus he is on metformin and insulin. No hematuria. MD Complaint: testicle pain and testicle swelling Onset (ago): day(s) (4) Duration: constant Location: left testicle Severity: severe Quality: aching Relieving factors: none Exacerbating factors: none Associated symptoms: Reports nausea; Deny discharge, dysuria, fevers/chills, hematuria, rash, swelling, urinary incontinence, urinary retention, mass or vomiting Review of Systems Const: Denies: fever(s), chills, body aches, change in appetite, fatigue or malaise ENMT: Denies: throat pain, ear or mastoid pain, nasal discharge or nasal congestion Card: Denies: chest pain, palpitations, irregular heart rhythm, edema, dyspnea on exertion or orthopnea Resp: Denies: dyspnea, productive cough or non-productive cough GI: Reports: abdominal pain and nausea; Denies: vomiting : Reports: difficulty urinating, urinary dribbling and genital pain; Denies: flank pain, dysuria, urinary frequency, urinary urgency, urinary incontinence or hematuria Skin/Breast: Denies: rash or pruritus PFSH ED PFSH: Medical History (Updated 08/29/21 @ 14:20 by Jorge Castle MD) Acute posterior myocardial infarction Chest pain Coronary artery disease Gastroesophageal reflux disease Hypertension Hypothyroidism Percutaneous transluminal coronary angioplasty (PTCA) within last 14 to 24 months Sleep apnea Surgical History (Updated 08/29/21 @ 14:29 by Jorge Castle MD) History of coronary artery bypass graft x 3 Family History Mother Diabetes Hyperlipidemia Hypertension Father CAD (coronary artery disease) Hyperlipidemia Hypertension Diabetes Social History Smoking and tobacco status: never smoked Alcohol intake: never Current occupational status: disabled Physical Exam Const: GENERAL APPEARANCE: cooperative and comfortable ORIENTATION/CONSCIOUSNESS: Yes awake, Yes oriented to person, Yes oriented to place and Yes oriented to time HENMT: COMMON NORMALS: normocephalic, atraumatic and hearing grossly normal bilaterally HEAD & SCALP: normocephalic and atraumatic Neck/C-Spine: COMMON NORMALS: no JVD Resp: COMMON NORMALS: normal respiratory effort, No retractions, No use of accessory muscles and clear to auscultation bilaterally AUSCULTATION: clear to auscultation bilaterally Cardio: COMMON NORMALS: no JVD, regular rate, regular rhythm and No murmurs present (Cardio) RATE: regular rate RHYTHM: regular rhythm GI: COMMON NORMALS: Soft to palpation and No hepatosplenomegaly present AUSCULTATION: Yes normoactive bowel sounds PALPATION: Yes Soft to palpation, No Tenderness to palpation present (GI), No Guarding due to palpation present (GI) and Yes No hepatosplenomegaly present : COMMON NORMALS: Yes no CVA tenderness BLADDER/KIDNEY EXAM: Yes no CVA tenderness SCROTUM: Yes scrotal swelling (Left testicle swollen firm and exquisitely tender) Scrotal swelling laterality: left Back/Pelvis: COMMON NORMALS: no CVA tenderness Extremity: COMMON NORMALS: normal to inspection, capillary refill normal, no clubbing, cyanosis or edema, no calf tenderness and no pedal edema Neuro: SENSORIUM/ORIENTATION: Yes oriented to person, Yes oriented to place and Yes oriented to time Skin: COMMON NORMALS: no rashes or lesions noted GENERAL SKIN EXAM: no rashes or lesions noted Course Vital Signs: Vital signs: Vital Signs Temperature 100.4 F H 08/27/21 15:22 Pulse Rate 90 08/27/21 19:17 Respiratory Rate 16 08/27/21 19:17 Blood Pressure 149/72 08/27/21 19:17 Pulse Oximetry 93 08/27/21 19:17 MDM - Male Medical Decision Making Care signed out to Dr. Mathis at change of shift. See final notes for diagnosis and disposition. Patient presents here with epididymitis 3 severe epididymitis I did offer him an admission but he states he feels much improved like to go home we will place him on Levaquin he is to follow-up with urology he is to return if worsening he understands agrees to plan. Medical Records I reviewed the patient's medical records. Lab Data I reviewed the patient's lab results. : 08/27/21 16:10 08/27/21 16:10 Radiology Impressions Scrotum Ultrasound 08/27/21 00:00 IMPRESSION: 1. Findings consistent with left epididymitis. 2. Hyperemia in the left testicle. Mild left orchitis is not excluded. 3. Moderate left and small right hydroceles. Abdomen/Pelvis CT 08/27/21 17:38 IMPRESSION: 1. The left testicle and/or epididymis appears enlarged with enhancement. This could be an infectious or neoplastic process. Follow-up with scrotal ultrasound recommended. 2. Left hydrocele. 3. Scrotal wall edema/cellulitis. 4. Mild left periureteral fat stranding. This could be chronic, but infection of the left renal collecting system cannot be entirely excluded. 5. Cholelithiasis. COMMENTS: Consistent with the [employer]'s Incidental Findings Committee white paper (J Am Sarah Radiol 2018): Any incidental renal lesion less than 1 cm or classified as too small to characterize, or any incidental cystic renal lesion characterized as simple-appearing, is likely benign. No follow-up imaging is recommended for these lesions per consensus recommendations based on imaging criteria. Laboratory Results WBC 13.1 10^3/uL (4.0-10.0) H 08/27/21 16:10 RBC 4.37 10^6/uL (4.1-5.3) 08/27/21 16:10 Hgb 12.4 g/dL (11.7-16.6) 08/27/21 16:10 Hct 39.0 % (42.0-52.0) L 08/27/21 16:10 MCV 89.2 fl (80-94) 08/27/21 16:10 MCH 28.4 pg (28.0-34.0) 08/27/21 16:10 MCHC 31.8 g/dL (30.0-36.0) 08/27/21 16:10 RDW 16.9 % (12.1-15.1) H 08/27/21 16:10 Plt Count 236 10^3/cmm (130-400) 08/27/21 16:10 MPV 9.9 fL (7.4-10.4) 08/27/21 16:10 Neut % (Auto) 81.2 % 08/27/21 16:10 Lymph % (Auto) 8.5 % 08/27/21 16:10 [place] % (Auto) 9.0 % 08/27/21 16:10 Eos % (Auto) 0.3 % 08/27/21 16:10 Baso % (Auto) 0.6 % 08/27/21 16:10 Neut # (Auto) 10.59 10^3/uL (1.8-7.7) H 08/27/21 16:10 Lymph # (Auto) 1.1 10^3/uL (0.8-4.8) 08/27/21 16:10 [place] # (Auto) 1.2 10^3/uL (0.2-0.9) H 08/27/21 16:10 Eos # (Auto) 0.0 10^3/uL (0.0-0.8) 08/27/21 16:10 Baso # (Auto) 0.1 10^3/uL (0.0-0.1) 08/27/21 16:10 Nucleated RBC % (auto) 0 % 08/27/21 16:10 Nucleated RBCs # 0.0 /100WBC 08/27/21 16:10 Sodium 135 mmol/L (136-145) L 08/27/21 16:10 Potassium 3.7 mmol/L (3.5-5.1) 08/27/21 16:10 Chloride 99 mmol/L (98-107) 08/27/21 16:10 Carbon Dioxide 25 mmol/L (22-29) 08/27/21 16:10 Anion Gap 14.7 (5-19) 08/27/21 16:10 BUN 15 mg/dL (8-23) 08/27/21 16:10 Creatinine 1.3 mg/dL (0.7-1.2) H 08/27/21 16:10 GFR Calculation 55.4 mL/min (90-130) L 08/27/21 16:10 Glucose 233 mg/dL (65-115) H 08/27/21 16:10 Calculated Osmolality 288 mOsm/kg (285-295) 08/27/21 16:10 Lactic Acid 1.3 mmol/L (0.5-2.2) 08/27/21 18:18 Calcium 8.9 mg/dL (8.5-10.5) 08/27/21 16:10 Urine Color Dark yellow (Yellow) 08/27/21 16:03 Urine Appearance Hazy (CLEAR) A 08/27/21 16:03 Urine pH 5 (5-7) 08/27/21 16:03 Ur Specific [place] 1.015 (1.005-1.030) 08/27/21 16:03 Urine Protein Trace (Negative) 08/27/21 16:03 Urine Glucose (UA) 4+ (Normal) H 08/27/21 16:03 Urine Ketones Negative (Negative) 08/27/21 16:03 Urine Blood Neg (Negative) 08/27/21 16:03 Urine Nitrate Positive (Negative) H 08/27/21 16:03 Urine Bilirubin Neg (Negative) 08/27/21 16:03 Urine Urobilinogen 1 mg/dL (Negative) H 08/27/21 16:03 Ur Leukocyte Esterase 2+ (Negative) H 08/27/21 16:03 Urine RBC None /hpf (0-2) 08/27/21 16:03 Urine WBC >100 /hpf (0-5) H 08/27/21 16:03 Ur Squamous Epith Cells None /hpf (0-5) 08/27/21 16:03 Amorphous Sediment Not Reportable 08/27/21 16:03 Urine Bacteria 3+ /hpf (NONE) H 08/27/21 16:03 Discharge Plan Discharge Patient Disposition: Home Clinical Impression: Epididymitis Condition: Stable Prescriptions: New levofloxacin 500 mg tablet 500 mg PO DAILY 10 Days Qty: 10 0RF hydrocodone-acetaminophen 5-325 mg tablet 1 tab PO Q6H PRN (Reason: pain) Qty: 14 0RF ondansetron 4 mg tablet,disintegrating 4 mg PO Q6H PRN (Reason: nausea and vomiting) Qty: 14 0RF No Action (DME) Diabetic shoes with 3 sets of insoles See Rx Instructions .Route .MEDSUPPLY Qty: 1 0RF Rx Instructions: As directed by ROSALINDA&O metformin 500 mg tablet 500 mg PO BID 0RF levothyroxine 175 mcg tablet 175 mcg PO QAM 0RF isosorbide mononitrate 120 mg tablet extended release 24 hr 120 mg PO QAM 0RF pantoprazole 40 mg tablet,delayed release (DR/EC) 40 mg PO QAM 0RF aspirin 81 mg Tablet,Chewable 81 mg PO QPM 0RF hydrochlorothiazide 25 mg tablet 25 mg PO QAM 0RF insulin aspart U-100 [Novolog Flexpen U-100 Insulin] 100 unit/mL (3 mL) insulin pen 20 - 25 unit SUBCUT TIDWM 0RF Rx Instructions: (20- 25 units per sliding scale) metoprolol tartrate 25 mg tablet 25 mg PO BID 0RF Tresiba FlexTouch U-100 100 unit/mL (3 mL) insulin pen 50 unit SUBCUT BEDTIME 0RF lisinopril 40 mg tablet 40 mg PO QAM 0RF ezetimibe 10 mg tablet 10 mg PO QAM 0RF rosuvastatin 40 mg tablet 40 mg PO QAM 0RF clopidogrel 75 mg tablet 75 mg PO QAM 0RF amlodipine 5 mg tablet 10 mg PO QAM 0RF gabapentin 300 mg capsule 300 mg PO TID 0RF Discharge Orders: Discharge ED (Routine); Ordered 08/27/21 Ordered By: Sagrario Mathis Referrals: Celina Fofana MD [Primary Care Provider] - Gilberto Chicas MD [Physician] - 1-3 days Discharge Diet: Advance as tolerated Discharge Activity: Resume usual activity Patient Instructions: Epididymitis (ED) Coding Level of Care Code ED Electronic Coils Supervisor for Chg Fwd Exam Comprehensive Documented by User: Sagrario Mathis MD 08/27/21 19:26 HPI - Male Genitourinary General: Chief complaint: Urogenital-Male Stated complaint: Testicular swelling Time Seen by Provider: 08/27/21 16:14 PFSH ED PFSH: Medical History (Updated 08/29/21 @ 14:20 by Jorge Castle MD) Acute posterior myocardial infarction Chest pain Coronary artery disease Gastroesophageal reflux disease Hypertension Hypothyroidism Percutaneous transluminal coronary angioplasty (PTCA) within last 14 to 24 months Sleep apnea Surgical History (Updated 08/29/21 @ 14:29 by Jorge Castle MD) History of coronary artery bypass graft x 3 Family History Mother Diabetes Hyperlipidemia Hypertension Father CAD (coronary artery disease) Hyperlipidemia Hypertension Diabetes Social History Smoking and tobacco status: never smoked Alcohol intake: never Current occupational status: disabled Course Vital Signs: Vital signs: Vital Signs Temperature 100.4 F H 08/27/21 15:22 Pulse Rate 90 08/27/21 19:17 Respiratory Rate 16 08/27/21 19:17 Blood Pressure 149/72 08/27/21 19:17 Pulse Oximetry 93 08/27/21 19:17 MDM - Male Medical Decision Making Patient presents here with epididymitis 3 severe epididymitis I did offer him an admission but he states he feels much improved like to go home we will place him on Levaquin he is to follow-up with urology he is to return if worsening he understands agrees to plan. Lab Data : 08/27/21 16:10 08/27/21 16:10 Radiology Impressions Scrotum Ultrasound 08/27/21 00:00 IMPRESSION: 1. Findings consistent with left epididymitis. 2. Hyperemia in the left testicle. Mild left orchitis is not excluded. 3. Moderate left and small right hydroceles. Abdomen/Pelvis CT 08/27/21 17:38
[2021-08-27 16:55] LABS: Anion Gap 14.7 (5-19); Blood Urea Nitrogen 15 mg/dL (8-23); Calcium 8.9 mg/dL (8.5-10.5); Carbon Dioxide 25 mmol/L (22-29); Chloride 99 mmol/L (98-107); Glomerular Filtration Rate 55.4 mL/min (90-130); Glucose 233 mg/dL (65-115); Osmolality Calculated 288 mOsm/kg (285-295); Potassium 3.7 mmol/L (3.5-5.1); Sodium 135 mmol/L (136-145)
--- NOTE | 2021-08-27 17:38 | CTR_ITS ---
PROCEDURE INFORMATION: Exam: CT Abdomen And Pelvis With Contrast Exam date and time: 08/27/2021 5:58 PM Age: 65 years old Clinical indication: Other: Testicular swelling; Additional info: Cellulitis TECHNIQUE: Imaging protocol: Computed tomography of the abdomen and pelvis with contrast. Radiation optimization: All CT scans at this facility use at least one of these dose optimization techniques: automated exposure control; mA and/or kV adjustment per patient size (includes targeted exams where dose is matched to clinical indication); or iterative reconstruction. Contrast material: OMNI 350; Contrast volume: 95 ml; Contrast route: INTRAVENOUS (IV); COMPARISON: US abdomen limited [id number] 07/16/2016 7:17 AM RADIATION DOSE METRICS: Total DLP (mGy-cm): 3030.63 FINDINGS: Heart: Coronary artery calcifications. Liver: Normal. No mass. Gallbladder and bile ducts: Calcified stones in the gallbladder measuring up to 1.0 cm. No gallbladder wall thickening. The bile ducts are normal. Pancreas: Normal. No ductal dilation. Spleen: Normal. No splenomegaly. Adrenal glands: Normal. No mass. Kidneys and ureters: Cyst in the central left kidney, Hounsfield units less than 20. Hypodensities in both kidneys are too small to characterize but are most likely cysts. No follow-up imaging is recommended. No calculus or hydronephrosis. Mild left periureteral fat stranding. Stomach and bowel: Unremarkable. No obstruction. No mucosal thickening. Appendix: The appendix is not visualized. No secondary signs of appendicitis. Intraperitoneal space: Unremarkable. No free air. No significant fluid collection. Vasculature: Arterial calcifications. No aneurysm. Lymph nodes: Unremarkable. No enlarged lymph nodes. Urinary bladder: Unremarkable as visualized. Reproductive: The left testicle and/or epididymis appears enlarged compared to the right with a lobulated margin and enhancement. Left hydrocele. Scrotal wall edema suspected. Bones/joints: Median sternotomy changes. Soft tissues: Small fat containing umbilical hernia. CT/CT abdomen pelvis w con* [id number] IMPRESSION: 1. The left testicle and/or epididymis appears enlarged with enhancement. This could be an infectious or neoplastic process. Follow-up with scrotal ultrasound recommended. 2. Left hydrocele. 3. Scrotal wall edema/cellulitis. 4. Mild left periureteral fat stranding. This could be chronic, but infection of the left renal collecting system cannot be entirely excluded. 5. Cholelithiasis. COMMENTS: Consistent with the [employer]'s Incidental Findings Committee white paper (J Am Sarah Radiol 2018): Any incidental renal lesion less than 1 cm or classified as too small to characterize, or any incidental cystic renal lesion characterized as simple-appearing, is likely benign. No follow-up imaging is recommended for these lesions per consensus recommendations based on imaging criteria.
[2021-08-27 17:43] VITALS: BP 142/73; PULSE 90; RESP 19; O2SAT 91
[2021-08-27] MEDS: iohexol 350 mg/mL 100 mL Btl IV (17:59)
[2021-08-27] MEDS: sodium chloride 0.9% 1,000 ML 999 ML IV (18:18)
[2021-08-27] MEDS: acetaminophen 325 mg Tablet 650 MG PO (18:18)
[2021-08-27 18:21] VITALS: BP 121/79; PULSE 93; RESP 17; O2SAT 94
[2021-08-27 18:31] VITALS: BP 132/69; PULSE 90; RESP 18; O2SAT 93
[2021-08-27 18:46] LABS: Lactic Sepsis W/Reflex 1.3 mmol/L (0.5-2.2)
[2021-08-27] MEDS: levoFLOXacin 500 mg Tablet PO (19:02)
[2021-08-27 19:17] VITALS: BP 149/72; PULSE 90; RESP 16; O2SAT 93
--- NOTE | 2021-08-28 15:07 | DCPLANNER ---
Addendum entered by Cyn Hernandez 09/13/21 16:49: acting manager was told that when clinic called patient to schedule a follow up appointment, that patient does not want the appointment at this time, patient is going to [facility]. Original Note: acting manager had message to schedule a follow up appointment for patient with urology. acting manager sent patients information to the front office staff at urology. Patients information will be printed and reviewed. Clinic will call patient with appointment information.
== END 2021-08-27 19:21 | disposition home or self-care (01) ==
PROVIDERS: Emergency Medicine; Family Medicine; Emergency Provider Emergency Medicine; PCP Internal Medicine
DX: N45.1 Epididymitis (principal)
CPT/HCPCS: 74177; 76870; 80048; 81001; 83605; 85025; 87040; 87077; 87086; 87186; 96360; 99284; J7030; Q9967

== ENCOUNTER → 2021-08-29 13:53 | Outpatient (BNVA) | payer MEDICARE, SELFPAY | PROVIDERS: PCP Internal Medicine; Visit Provider Internal Medicine Cardiovascular Disease | DX: I25.119 Atherosclerotic heart disease of native coronary artery with unspecified angina pectoris (principal); I10 Essential (primary) hypertension; E11.9 Type 2 diabetes mellitus without complications; Z79.4 Long term (current) use of insulin; Z79.84 Long term (current) use of oral hypoglycemic drugs; E66.01 Morbid (severe) obesity due to excess calories; Z68.42 Body mass index [BMI] 45.0-49.9, adult; Z95.1 Presence of aortocoronary bypass graft | CPT/HCPCS: 99214 ==

== ENCOUNTER → 2021-09-18 08:47 | Outpatient (BNVA) | payer MEDICARE, SELFPAY | PROVIDERS: PCP Internal Medicine; Visit Provider Podiatrist Foot & Ankle Surgery | DX: E11.42 Type 2 diabetes mellitus with diabetic polyneuropathy (principal); E11.8 Type 2 diabetes mellitus with unspecified complications; L60.3 Nail dystrophy; L84 Corns and callosities; M20.11 Hallux valgus (acquired), right foot; M20.12 Hallux valgus (acquired), left foot; M21.41 Flat foot [pes planus] (acquired), right foot; M21.42 Flat foot [pes planus] (acquired), left foot | CPT/HCPCS: 99214 ==

== ENCOUNTER 2021-11-16 06:02 | Outpatient (CLI) | payer MEDICARE, SELFPAY ==
[2021-11-14 08:46] LABS: Basophils # 0.1 10^3/uL (0.0-0.1); Basophils % 1.4 %; Eosinophils # 0.2 10^3/uL (0.0-0.8); Eosinophils % 3.1 %; Hematocrit 38.3 % (42.0-52.0); Hemoglobin 12.5 g/dL (11.7-16.6); Lymphocytes # 1.9 10^3/uL (0.8-4.8); Lymphocytes % 26.2 %; Mean Corpuscular HGB Conc 32.6 g/dL (30.0-36.0); Mean Corpuscular Hemoglobin 28.9 pg (28.0-34.0); Mean Corpuscular Volume 88.7 fl (80-94); Mean Platelet Volume 9.3 fL (7.4-10.4); Monocytes # 0.4 10^3/uL (0.2-0.9); Monocytes % 5.8 %; Neutrophils # 4.68 10^3/uL (1.8-7.7); Neutrophils % 63.4 %; Nucleated Red Blood Cells % 0 %; Platelet Count 220 10^3/cmm (130-400); Red Blood Count 4.32 10^6/uL (4.1-5.3); Red Cell Distribution Width 16.8 % (12.1-15.1); White Blood Count 7.4 10^3/uL (4.0-10.0)
[2021-11-14 09:38] LABS: Anion Gap 14.4 (5-19); Blood Urea Nitrogen 25 mg/dL (8-23); Calcium 9.9 mg/dL (8.5-10.5); Carbon Dioxide 27 mmol/L (22-29); Chloride 101 mmol/L (98-107); Glomerular Filtration Rate 55.4 mL/min (90-130); Glucose 183 mg/dL (65-115); Osmolality Calculated 295 mOsm/kg (285-295); Potassium 4.4 mmol/L (3.5-5.1); Sodium 138 mmol/L (136-145)
[2021-11-14 10:13] LABS: INR 1.07 (0.83-1.21); Prothrombin Time (Patient) 14.2 Seconds (12.0-15.1)
[2021-11-16] VITALS (48 sets, daily range): BP systolic 91–153; BP diastolic 42–86; PULSE 63–85; RESP 10–42; TEMP 36.3–36.8; O2SAT 96–98; BMI 49.1
[2021-11-16] MEDS: diphenhydrAMINE 50 mg Capsule PO (06:48)
[2021-11-16] MEDS: sodium chloride 0.9% 250 ML IV (06:58)
--- NOTE | 2021-11-16 07:10 | XACV_ITS ---
Exam Room: 2 Ht: 175 cm Wt: 151 kg BSA: 2.79 m2 Gender: Male : 1955 Any Known Allergies: No known allergies Exam Priority: Routine Procedure(s): Procedure Description: Diagnostic procedure Procedure Description: PCI procedure Procedure Description: Drug Eluting Coronary Stent Procedure Description: PTCA Procedure Description: Miscellaneous Procedure Description: ACT Procedure Description: Coronary Angiography Diagnostic Cath Status: Elective Diagnostic Findings * INDICATION:65-year-old man with past medical history of hypertension and diabetes, CAD s/p CABG in 2003 and multiple stents placed from left main to left circumflex artery last year when he had ST elevation [place] with culprit vessel being SVG to OM. He has been having worsening, severe substernal chest pain with minimal exertion for the last 2 to 3 months. Plan for left heart cath with possible percutaneous coronary intervention. * Left Main has patent prior stent. * Left Anterior Descending is totally occluded in the midsegment.. * Right Coronary Artery not injected and is known to have chronic total occlusion.. * SVG to OM and SVG to RCA are known occluded from angiogram from last year. Not injected. * Circumflex artery has multiple stents. At distal edge of the last stent, there is severe 90% stenosis. Further downstream in this distal vessel, there is 70 to 80% stenosis is seen.. * Left Internal Mammary Artery to Distal Left Anterior Descending graft: patent. * Distal Circumflex: obstructive 70% stenosis, JOSEPH: 3 flow. * Coronary angiography shows right dominance. PCI Status: Elective PCI Indication: Other Interventional Findings * Mid Circumflex: 80-90 % stenosis treated with a MDT R GUY 3.0X22 BRYCE. 0% residual stenosis, JOSEPH: 3 flow. * Procedure detail: Left main artery was engaged with XB 3.5 guide catheter. Using a 0.014 run-through guidewire we crossed the mid to distal and distal artery stenosis and was placed in the distal vessel. IV heparin was administered to maintain ACT above 250 s. We predilated the stenosis with a 2.5 x 12 mm noncompliant balloon. We then attempted to predilate distal vessel stenosis and I performed balloon angioplasty. This was followed by balloon angioplasty with a 2.0 x 15 mm semicompliant balloon in the very distal segment. Mid to distal segment was then stented using 3.0 x 22 mm resolute [place] drug-eluting stent. At this time final angiogram was performed that showed excellent stent expansion, no residual stenosis and JOSEPH-3 flow. Guidewire and guide catheter were removed. 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 * Distal Circumflex: 70% stenosis treated with a AB TREK 2.50X12 RX BALLOON, and AB MINI TREK 2.00X15 RX BALLOON. 0% residual stenosis, JOSEPH: 3 flow. Conclusions 1. Circumflex artery has multiple stents. At distal edge of the last stent, there is severe 90% stenosis. Further downstream in this distal vessel, there is 70 to 80% stenosis is seen.. 2. Severe stenosis of left circumflex artery 3. s/p successful revascularization with balloon angioplasty and drug-eluting stent placement x1.. 4. Patent JIMÉNEZ to LAD. Known occluded SVG to RCA and OM. SVG grafts were not injected. 5. Patient has prior CABG. 6. Mid Circumflex was treated with a Drug Eluting Stent. 7. Distal Circumflex was treated with a Balloon, and Balloon. Recommendations * Aggressive risk factor modification. * Dual antiplatelet therapy for at least 1 year. * High intensity statin therapy. * Outpatient cardiology follow-up in 4 weeks. Interventional RX Recommendation: PCI w/o planned CABG Diagnostic RX Recommendation: PCI w/o planned CABG Anticoagulation: Heparin Pressures Phase:Rest AO : 95 / 53 ( 69 ) @ 8:55:00 AM 103 / 66 ( 83 ) @ 9:11:00 AM 112 / 65 ( 86 ) @ 9:19:00 AM 98 / 64 ( 80 ) @ 9:24:00 AM Clinical Evaluation EBL: 5mL-10mL Procedural Details Procedure Consent Obtained. Pre-Procedure Time Out. Identified patient by full name and date of as verbalized by the patient/guarantor. Does the consent match the physician's order: Yes. Accurate & Complete Informed Consent: Yes. Inpatient/Outpatient History & Physical on Chart: Yes. If H&P is completed, is and addenduem needed: Yes; If yes, is the addendum complete: Yes. Visualize and Verify Site with Patient/Guarantor: N/A. Relevant Radiology Images available: Yes. The risks, benefits, and alternatives of sedation and/or procedure were discussed by physician. The patient agrees to continue. Procedure started. [facility] Clinical Fraility Score: 3: Managing Well. Butting Saw Operator Indications: Worsening Angina. Chest Pain Symptom Assessment: Typical Angina Symptoms. Cardiovascular Instability: No. Correct patient, site and procedure confirmed by cath team. PERRLA. Strong, equal hand audit manager bilaterally. Lungs clear x 5 lobes. IV Site on Arrival: 20 gauge in the right forearm. IV Fluids: 0.9% NaCl at KVO. 250 mL infused prior to laboratory engineer. Pre Procedural Pulses: bilateral dorsalis pedis was Doppled. Pre Procedural Pulses: bilateral posterior tibial was 2+. Pre Procedural Pulses: bilateral radial was 2+. Oxygen started at 2liters/min via nasal canula. bilateral groins was prepped with chloroprep then draped in the usual sterile fashion. Physician notified. Baseline sample Acquired. HR: 74 BPM. Baseline sample Acquired. HR: 81 BPM. Physician arrived. Physician scrubbed in. Immediate Pre-Procedure Time Out. Correct Patient: Yes; Correct Procedure: Yes; Correct Site: Yes; Correct Patient Position: Yes; Correct Supplies: Yes; Dried Flammable Prep: Yes; Blood Products Available: N/A;. Lidocaine 1% infiltrated to the right groin. Arterial access obtained with micropuncture set. A 6 niuean JL4 catheter in over the standard J wire. Multiple views taken of left coronary artery. A 6 niuean JR4 catheter in over the standard J wire. [place] RCA, SVG to RCA, SVG to the OM, known to be occluded. JIMÉNEZ to LAD visualized. Catheter removed over the standard J wire. 6 niuean XB 3.5 guide catheter was inserted over the standard J wire. Runthrough 300cm guidewire was advanced through the guide catheter to lesion in the distal Circ. Inflation number : 1 A AB TREK 2.50X12 RX BALLOON was prepped and advanced across the Dist CX , then inflated to 8 ANDRIA for 0:18 seconds. Inflation number: 2 The AB TREK 2.50X12 RX BALLOON was reinflated across the Dist CX, to 8 ANDRIA for 0:08 seconds. Inflation number: 3 The AB TREK 2.50X12 RX BALLOON was reinflated across the Dist CX, to 8 ANDRIA for 0:09 seconds. Inflation number: 4 The AB TREK 2.50X12 RX BALLOON was reinflated across the Dist CX, to 12 ANDRIA for 0:20 seconds. Inflation number: 5 The AB TREK 2.50X12 RX BALLOON was reinflated across the Dist CX, to 12 ANDRIA for 0:14 seconds. Balloon out. Results checked. ACT X 2. Inflation Number : 1 A MDT R GUY 3.0X22 BRYCE -Lot Number# [id number] was prepped and advanced across the Mid CX. The stent was deployed at 12 ANDRIA for 0:20 seconds. Exp 2024-04-05. Stent balloon out over wire. ACT drawn. Results 387 seconds. Therapeutic limits - pre-heparin administration 90-150 seconds and monitoring heparin during a vascular procedure >250 seconds. ACT drawn. Results 369 seconds. Therapeutic limits - pre-heparin administration 90-150 seconds and monitoring heparin during a vascular procedure >250 seconds. Add inventory: Co-Cardiac Rn, endoflator. Inflation number : 6 A AB MINI TREK 2.00X15 RX BALLOON was prepped and advanced across the Dist CX , then inflated to 10 ANDRIA for 0:24 seconds. Inflation number: 7 The AB MINI TREK 2.00X15 RX BALLOON was reinflated across the Dist CX, to 8 ANDRIA for 0:13 seconds. Inflation number: 8 The AB MINI TREK 2.00X15 RX BALLOON was reinflated across the Dist CX, to 8 ANDRIA for 0:15 seconds. Balloon out. Results checked. Wire out. Guide catheter out. A Right femoral angiogram was performed to determine safe placement of closure device. ACT drawn. Results 243 seconds. Therapeutic limits - pre-heparin administration 90-150 seconds and monitoring heparin during a vascular procedure >[address] Dove scrubbed out. Sheath(s) sutured into position with 2-0 silk and sterile 4x4's and Op-site applied over the site. No oozing or signs and symptoms of hematoma noted. Arterial sheath flushed and connected to tranducer and pressure bag with heparinized saline. A Suture was successful obtaining hemostatsis at the Right Femoral artery insertion site. Post Procedure: Pulses reassessed and unchanged. PERRLA. Strong, equal hand audit manager bilaterally. No VTE prophylaxis required. Medication's Wasted: Nitro = 49.6 mg. Medication's Wasted: Lidocaine 1% = 2 mL. Medication's Wasted: Heparin = 1000 units. Total IV fluids: 84 mL. 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 PTCA of the distal CX and PCI of the MID CX. Complications: none. Estimated blood loss: 5mL-10mL. Responsiveness - Normal response to verbal stimuli; alert and oriented, PERRLA. Airway - Unaffected, no intervention required; spontaneous ventilation. Circulation: W/N/L, pulses unchanged. Nausea/Vomiting: No. Procedure completed. Patient transferred by bed to [facility]. Vital chart was stopped. Access Site Site: Right Femoral artery Sheath Size: 6 Fr Hemostasis Method: Suture Hemostasis Success: Successful Procedure Medications Start: 7:39 AM Stop: 7:39 AM Medication: Versed Amount: 1 mg Route: I.V. Start: 7:39 AM Stop: 7:39 AM Medication: Fentanyl Amount: 50 mcg Route: I.V. Start: 7:46 AM Stop: 7:46 AM Medication: Versed Amount: 1 mg Route: I.V. Start: 7:48 AM Stop: 7:48 AM Medication: Fentanyl Amount: 50 mcg Route: I.V. Start: 7:57 AM Stop: 7:57 AM Medication: Heparin Amount: 06504 units Route: I.V. Start: 7:56 AM Stop: 7:56 AM Medication: Versed Amount: 1 mg Route: I.V. Start: 8:02 AM Stop: 8:02 AM Medication: Versed Amount: 1 mg Route: I.V. Start: 8:06 AM Stop: 8:06 AM Medication: Versed Amount: 1 mg Route: I.V. Start: 8:10 AM Stop: 8:10 AM Medication: Fentanyl Amount: 25 mcg Route: I.V. Start: 8:13 AM Stop: 8:13 AM Medication: Fentanyl Amount: 25 mcg Route: I.V. Start: 8:20 AM Stop: 8:20 AM Medication: Nitrogylcerin Amount: 200 mcg Route: I.C. Start: 8:26 AM Stop: 8:26 AM Medication: Nitrogylcerin Amount: 200 mcg Route: I.C. Start: 8:30 AM Stop: 8:30 AM Medication: Heparin Amount: 1000 units Route: I.V. Start: 8:30 AM Stop: 8:30 AM Medication: Plavix Amount: 300 mg Route: P.O. I, the attending physician, have reviewed and verified all procedure medications. Yes, all medications given per verbal order History/Risk Factors Hypertension: Yes Dyslipidemia: Yes Peripheral Arterial Disease (PAD): No Obesity: Yes Renal Disease: No Tobacco Use: Never Prior Interventions PCI: Yes CABG: Yes Valve Surgery: No Date of PCI: 07/17/2020 Report Signatures Finalized by Paul Dove MD on 11/26/2021 12:54 PM
--- NOTE | 2021-11-16 07:45 | W.PM.OPSFHP ---
Same Day Surgery H&P Indication for Procedure/HPI DATE OF PROCEDURE: November 16, 2021 CHIEF COMPLAINT/INDICATIONFOR SURGICAL PROCEDURE: Worsening angina PREOP DIAGNOSIS: Worsening angina PLANNED PROCEDURE: Operation Date: 11/16/21 07:00 Proposed Procedures p Cardiac Catheterization(Left) - Paul Dove M.D Possible percutaneous coronary intervention 65-year-old man with past medical history of hypertension and diabetes, CAD s/p CABG in 2003 and multiple stents placed from left main to left circumflex artery last year when he had ST elevation [place] with culprit vessel being SVG to OM. He has been having worsening, severe substernal chest pain with minimal exertion for the last 2 to 3 months. Plan for left heart cath with possible percutaneous coronary intervention. ROS CONSTITUTIONAL: No fever chills weight loss or gain or night sweats. [] HEENT: Normocephalic, atraumatic.[] RESPIRATORY: No cough, sputum, hemoptysis or wheezing.[] CARDIOVASCULAR: Has chest pain and shortness of breath GI: no nausea vomiting diarrhea. [] WELFARE AIDE: No numbness, tingling, weakness or loss of function in any part of the body. [] MUSCULOSKELETAL: No knee or joint pain or rashes. [] Medications/Allergies* Home Medications Medication Instructions Recorded Confirmed Type aspirin 81 mg chewable tablet 81 mg PO QPM 07/08/20 11/16/21 History hydrochlorothiazide 25 mg tablet 25 mg PO QAM 07/08/20 11/16/21 History insulin aspart U-100 100 unit/mL 20 - 25 unit SUBCUT TIDWM 07/08/20 11/16/21 History (3 mL) subcutaneous pen (Novolog Flexpen U-100 Insulin aspart) insulin degludec 100 unit/mL (3 50 unit SUBCUT BEDTIME 07/08/20 11/16/21 History mL) subcutaneous pen (Tresiba FlexTouch U-100 insulin) isosorbide mononitrate 120 mg 120 mg PO QAM 07/08/20 11/16/21 History tablet,extended release 24 hr levothyroxine 175 mcg tablet 175 mcg PO QAM 07/08/20 11/16/21 History metformin 500 mg tablet 500 mg PO BID 07/08/20 11/16/21 History metoprolol tartrate 25 mg tablet 25 mg PO BID 07/08/20 11/16/21 History pantoprazole 40 mg tablet,delayed 40 mg PO QAM 07/08/20 11/16/21 History release amlodipine 5 mg tablet 10 mg PO QAM 08/27/21 11/16/21 History clopidogrel 75 mg tablet 75 mg PO QAM 08/27/21 11/16/21 History ezetimibe 10 mg tablet 10 mg PO QAM 08/27/21 11/16/21 History lisinopril 40 mg tablet 40 mg PO QAM 08/27/21 11/16/21 History rosuvastatin 40 mg tablet 40 mg PO QAM 08/27/21 11/16/21 History Allergies/Adverse Reactions Allergy/AdvReac Type Severity Reaction Status Date / Time No Known Allergies Allergy Verified 11/15/21 10:49 Current Medications: Generic Name Dose Route Start Last Admin Trade Name Freq PRN Reason Stop Dose Admin Sodium Chloride 1,000 mls @ 50 mls/hr 11/16/21 06:25 11/16/21 06:45 Sodium Chloride 0.9% IV 11/17/21 02:24 Not Given .Q20H ONE Sodium Chloride 250 mls @ 250 mls/hr 11/16/21 06:56 11/16/21 06:58 Sodium Chloride 0.9% IV 11/16/21 07:55 250 mls/hr ONCE ONE Administration Pertinent History/Comorbid Conditions* Medical History (Updated 09/04/21 @ 00:01 by ) Acute posterior myocardial infarction Chest pain Coronary artery disease Gastroesophageal reflux disease Hypertension Hypothyroidism Percutaneous transluminal coronary angioplasty (PTCA) within last 14 to 24 months Sleep apnea Surgical History (Updated 08/29/21 @ 14:29 by Jorge Castle MD) History of coronary artery bypass graft x 3 Family History (Updated 07/08/20 @ 22:33 by Yohannes Merino MD) Diabetes Mother Father CAD (coronary artery disease) Father Hyperlipidemia Mother Father Hypertension Mother Father Social History Smoking and tobacco status: never smoked Alcohol intake: never Current occupational status: disabled Pertinent Exam Findings alert, oriented x 3, clear to auscultation bilaterally and regular rate & rhythm Conscious Sedation Assessment PATIENT ASSESSED PRIOR TO SEDATION, WITH NO CHANGE NOTED: Yes AIRWAY EVAL/ANESTHESIA PLAN: ASA III, Local Anesthesia, Risks, benefits & alternatives of sedation and/or procedure discussed and Patient agrees to continue as planned ADDITIONAL INFORMATION: Moderate sedation Recommendations Surgery/Procedure today (Left heart cath with possible percutaneous coronary intervention) Coding Level of Care Code Acute Rn Psychiatric for Radha Figueroa
--- NOTE | 2021-11-16 11:04 | PC.NURSE ---
spoke with provider with concerns of patient being diabetic with no monitoring or medication orders Instructions to perform accu checks ac/hs with a mod sliding scale humalog insulin with meals
[2021-11-16 12:20] LABS: Glucose Point of Care 214 mg/dL (70-110)
[2021-11-16] MEDS: sodium chloride 0.9% 1,000 ML 100 ML IV (14:30)
[2021-11-16] MEDS: gabapentin 300 mg Capsule PO ×2 (16:08→21:27)
[2021-11-16 17:16] LABS: Glucose Point of Care 219 mg/dL (70-110)
[2021-11-16] MEDS: amoxicillin-clav 875-125 mg Tablet 1 TAB PO (21:27)
[2021-11-16] MEDS: metoprolol tartrate 25 mg Tablet PO (21:27)
[2021-11-16] MEDS: insulin lispro 100 unit/1 mL SUBCUT (21:27)
[2021-11-16 21:36] LABS: Glucose Point of Care 230 mg/dL (70-110)
[2021-11-17 00:51] VITALS: BP 129/67; PULSE 68; RESP 20; TEMP 36.8; O2SAT 92
[2021-11-17 04:00] VITALS: BP 173/89; PULSE 69; RESP 24; TEMP 36.4; O2SAT 95
[2021-11-17 04:15] LABS: Basophils # 0.1 10^3/uL (0.0-0.1); Basophils % 0.7 %; Eosinophils # 0.2 10^3/uL (0.0-0.8); Eosinophils % 3.5 %; Hematocrit 33.6 % (42.0-52.0); Lymphocytes # 1.2 10^3/uL (0.8-4.8); Lymphocytes % 18.2 %; Mean Corpuscular HGB Conc 32.7 g/dL (30.0-36.0); Mean Corpuscular Hemoglobin 29.5 pg (28.0-34.0); Mean Corpuscular Volume 90.1 fl (80-94); Mean Platelet Volume 9.2 fL (7.4-10.4); Monocytes # 0.5 10^3/uL (0.2-0.9); Monocytes % 7.3 %; Neutrophils # 4.77 10^3/uL (1.8-7.7); Nucleated Red Blood Cells % 0 %; Platelet Count 203 10^3/cmm (130-400); Red Blood Count 3.73 10^6/uL (4.1-5.3); Red Cell Distribution Width 16.7 % (12.1-15.1); White Blood Count 6.8 10^3/uL (4.0-10.0)
[2021-11-17 04:37] LABS: Anion Gap 15.2 (5-19); Blood Urea Nitrogen 27 mg/dL (8-23); Calcium 9.2 mg/dL (8.5-10.5); Carbon Dioxide 24 mmol/L (22-29); Chloride 104 mmol/L (98-107); Glomerular Filtration Rate 60.8 mL/min (90-130); Glucose 141 mg/dL (65-115); Osmolality Calculated 295 mOsm/kg (285-295); Potassium 4.2 mmol/L (3.5-5.1); Sodium 139 mmol/L (136-145)
[2021-11-17 04:56] VITALS: BP 116/63
[2021-11-17 06:00] VITALS: PULSE 80
[2021-11-17] MEDS: amlodipine 10 mg Tablet PO (06:38)
[2021-11-17] MEDS: ezetimibe 10 mg Tablet PO (06:38)
[2021-11-17] MEDS: levothyroxine 175 mcg Tablet PO (06:38)
[2021-11-17] MEDS: pantoprazole DR 40 mg Tablet PO (06:38)
[2021-11-17] MEDS: lisinopril 20 mg Tablet 40 MG PO (06:38)
[2021-11-17] MEDS: clopidogrel 75 mg Tablet PO (06:38)
[2021-11-17] MEDS: sodium chloride 0.9% 1,000 ML 100 ML IV (06:39)
[2021-11-17 06:59] LABS: Glucose Point of Care 161 mg/dL (70-110)
[2021-11-17 08:00] VITALS: BP 131/74; PULSE 76; RESP 15; TEMP 36.8; O2SAT 96
[2021-11-17 08:22] VITALS: PULSE 74; RESP 17; O2SAT 94
[2021-11-17] MEDS: amoxicillin-clav 875-125 mg Tablet 1 TAB PO (08:54)
[2021-11-17] MEDS: metoprolol tartrate 25 mg Tablet PO (08:54)
[2021-11-17] MEDS: insulin lispro 100 unit/1 mL SUBCUT (08:54)
[2021-11-17] MEDS: gabapentin 300 mg Capsule PO (08:54)
--- NOTE | 2021-11-17 09:27 | P.SS_ITS ---
Short Stay Summary Providers Date of Admit/Discharge: 11/16/21 Attending Provider: Paul Dove M.D Primary Care Provider: Celina Fofana MD Chief Complaint: 60494 i20.0 HPI History of Present Illness Murray Harp is a 65 year old male with past medical history of hypertension and diabetes, CAD s/p CABG in 2003 and multiple stents placed from left main to left circumflex artery last year when he had ST elevation [place] with culprit vessel being SVG to OM.? He has been having worsening, severe substernal chest pain w ith minimal exertion for the last 2 to 3 months.? Plan for left heart cath with possible percutaneous coronary intervention. Review of Systems Const: Denies: fever(s) or chills Eyes: Denies: change in vision ENMT: Denies: bleeding gums Resp: Denies: hemoptysis or chest congestion GI: Denies: hematochezia : Denies: hematuria Musc: Denies: neck pain Skin/Breast: Reports: dry skin Neuro: Denies: headache(s) or dizziness Psych: Denies: anxiety or depression Endo: Denies: tired all the time Deo/Lymph: Denies: easy bruising or easy bleeding All/Imm: Denies: seasonal rhinorrhea Home Meds/Allergies Home Medications and Allergies Home Medications Medication Instructions Recorded Confirmed Type aspirin 81 mg chewable tablet 81 mg PO QPM 07/08/20 11/16/21 History hydrochlorothiazide 25 mg tablet 25 mg PO QAM 07/08/20 11/16/21 History insulin aspart U-100 100 unit/mL 20 - 25 unit SUBCUT TIDWM 07/08/20 11/16/21 History (3 mL) subcutaneous pen (Novolog Flexpen U-100 Insulin aspart) insulin degludec 100 unit/mL (3 50 unit SUBCUT BEDTIME 07/08/20 11/16/21 History mL) subcutaneous pen (Tresiba FlexTouch U-100 insulin) isosorbide mononitrate 120 mg 120 mg PO QAM 07/08/20 11/16/21 History tablet,extended release 24 hr levothyroxine 175 mcg tablet 175 mcg PO QAM 07/08/20 11/16/21 History metformin 500 mg tablet 500 mg PO BID 07/08/20 11/16/21 History metoprolol tartrate 25 mg tablet 25 mg PO BID 07/08/20 11/16/21 History pantoprazole 40 mg tablet,delayed 40 mg PO QAM 07/08/20 11/16/21 History release amlodipine 5 mg tablet 10 mg PO QAM 08/27/21 11/16/21 History clopidogrel 75 mg tablet 75 mg PO QAM 08/27/21 11/16/21 History ezetimibe 10 mg tablet 10 mg PO QAM 08/27/21 11/16/21 History lisinopril 40 mg tablet 40 mg PO QAM 08/27/21 11/16/21 History rosuvastatin 40 mg tablet 40 mg PO QAM 08/27/21 11/16/21 History Allergies Allergy/AdvReac Type Severity Reaction Status Date / Time No Known Allergies Allergy Verified 11/15/21 10:49 PFSH Acute PFSH: Medical History Acute posterior myocardial infarction Chest pain Coronary artery disease Gastroesophageal reflux disease Hypertension Hypothyroidism Percutaneous transluminal coronary angioplasty (PTCA) within last 14 to 24 months Sleep apnea Surgical History History of coronary artery bypass graft x 3 Family History Mother Diabetes Hyperlipidemia Hypertension Father CAD (coronary artery disease) Hyperlipidemia Hypertension Diabetes Social History Smoking and tobacco status: never smoked Alcohol intake: never Current occupational status: disabled Vitals/I&O/Wt Last Vital Signs Temp 98.3 F 11/17/21 08:00 Pulse 74 11/17/21 08:22 Resp 17 11/17/21 08:22 BP 131/74 11/17/21 08:00 Pulse Ox 94 11/17/21 08:22 11/16/21 11/17/21 11/17/21 22:59 06:59 14:59 Intake Total 236 / 486 1500 / 1986 354 / 354 Output Total 1050 / 1050 400 / 1450 875 / 875 Balance -814 / -564 1100 / 536 -521 / -521 Weight last 48 hrs Weight 333 lb Physical Exam Narrative: GENERAL: Patient is alert, awake and oriented x3. [] NECK: No jugular vein distension. [] HEENT: No cyanosis. No icterus. No pallor. [] HEART: Regular S1 and S2. No murmur, rub or gallop. [] LUNGS: Clear to auscultate bilaterally. [] ABDOMEN: Soft, nontender and nondistended. Positive bowel sounds. No guarding, rebound or tenderness. [] CENTRAL NERVOUS SYSTEM: Grossly nonfocal. [] EXTREMITIES: Lower extremities with 1+ edema bilaterally. Pulses palpable in the lower extremities, both dorsalis pedis and posterior tibial. [] Hospital Course Admission Diagnoses Worsening angina/unstable angina Hospital Course Murray Harp is a 65 year old male with past medical history of hypertension and diabetes, CAD s/p CABG in 2003 and multiple stents placed from left main to left circumflex artery last year when he had ST elevation [place] with culprit vessel being SVG to OM.? He has been having worsening, severe substernal chest pain with minimal exertion for the last 2 to 3 months.? Plan for left heart cath with possible percutaneous coronary intervention. Coronary angiogram demonstrated severe mid to distal left circumflex artery stenosis post prior stent. He underwent successful revascularization with BRYCE x1. Distal circumflex artery had significant stenosis however given the size of the vessel, we decided to do balloon angioplasty. There is improved flow significantly. Patient stayed in the hospital overnight for observation and was in a stable condition to be discharged. 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 Routin e Exams 11/16/21 07:10 Ordered Procedures Performed: Coronary angiogram with percutaneous coronary intervention Discharge Plan Discharge Patient Disposition: Home Prescriptions: Continued (DME) Diabetic shoes with 3 sets of insoles See Rx Instructions .Route .MEDSUPPLY Qty: 1 0RF Rx Instructions: As directed by ROSALINDA&O gabapentin 300 mg capsule 300 mg PO TID 90 Days Qty: 270 2RF amoxicillin-pot clavulanate 875-125 mg tablet 1 tab PO BID 7 Days Qty: 14 0RF levothyroxine 175 mcg tablet 175 mcg PO QAM 0RF isosorbide mononitrate 120 mg tablet extended release 24 hr 120 mg PO QAM 0RF pantoprazole 40 mg tablet,delayed release (DR/EC) 40 mg PO QAM 0RF aspirin 81 mg Tablet,Chewable 81 mg PO QPM 0RF hydrochlorothiazide 25 mg tablet 25 mg PO QAM 0RF insulin aspart U-100 [Novolog Flexpen U-100 Insulin] 100 unit/mL (3 mL) insulin pen 20 - 25 unit SUBCUT TIDWM 0RF Rx Instructions: (20- 25 units per sliding scale) metoprolol tartrate 25 mg tablet 25 mg PO BID 0RF Tresiba FlexTouch U-100 100 unit/mL (3 mL) insulin pen 50 unit SUBCUT BEDTIME 0RF lisinopril 40 mg tablet 40 mg PO QAM 0RF ezetimibe 10 mg tablet 10 mg PO QAM 0RF rosuvastatin 40 mg tablet 40 mg PO QAM 0RF clopidogrel 75 mg tablet 75 mg PO QAM 0RF amlodipine 5 mg tablet 10 mg PO QAM 0RF hydrocodone-acetaminophen 5-325 mg tablet 1 tab PO Q6H PRN (Reason: pain) Qty: 14 0RF ondansetron 4 mg tablet,disintegrating 4 mg PO Q6H PRN (Reason: nausea and vomiting) Qty: 14 0RF Held metformin 500 mg tablet 500 mg PO BID 0RF Hold Instructions: Resume on 11/19/21. Discharge Orders: Discharge Order (Routine); Ordered 11/17/21 Ordered By: Paul Dove Referrals: Paul Dove M.D [Physician] - 1 month (Please call [facility] to schedule an follow-up appointment with Dr. Dove in 1 month. ) Janay Shah FNP [Nurse Practitioner] - 7-10 days (Please call [facility] to schedule an follow-up appoinmtment with Janay Shah in 7 to 10 days. Please call ) Diet: Cardiac and Diabetic Activity: Increase activity as tolerated Patient Instructions: Coronary Intravascular Stent Placement (DC), Chest Pain Stoplight, Post Angiogram Home Care Instructions Activity Restrictions/Additional Instructions: Please do not lift more than 5 pounds of weight for the next 5 days Attestations Medical Necessity Statement*: Care not expected to cross 2 midnights. Patient came as outpatient for coronary angiogram and underwent successful revascularization with BRYCE x1. Stayed overnight and is being discharged now. Time Spent in Patient Care*: less than 30 min Quality Metrics 2 Clinical Quality Measures: [ No reported AMI, CVA or VTE this stay ] Coding Level of Care Code Acute Radiological Defense Officer for Radha Figueroa
== END 2021-11-17 10:37 | disposition home or self-care (01) ==
LOC: CCL 06:02 → MEDSURG 09:56
PROVIDERS: Internal Medicine Cardiovascular Disease; PCP Internal Medicine; Visit Provider Internal Medicine
DX: I25.110 Atherosclerotic heart disease of native coronary artery with unstable angina pectoris (principal); Z95.1 Presence of aortocoronary bypass graft; R58 Hemorrhage, not elsewhere classified; E11.42 Type 2 diabetes mellitus with diabetic polyneuropathy; I25.2 Old myocardial infarction; Z95.5 Presence of coronary angioplasty implant and graft; Z79.82 Long term (current) use of aspirin; Z79.4 Long term (current) use of insulin; Z79.84 Long term (current) use of oral hypoglycemic drugs; I10 Essential (primary) hypertension; E03.9 Hypothyroidism, unspecified; G47.30 Sleep apnea, unspecified
CPT/HCPCS: 36415; 36416; 80048; 82962; 85025; 85347; 85610; 85730; 93455; 94760; 96360; 96372; 99152; 99153; C1725; C1769; C1874; C1887; C1894; C9600; J1644; J1815; J2250; J3010; J3490; J7030; Q0163; Q9967

== ENCOUNTER → 2021-11-30 08:47 | Outpatient (BNVA) | payer MEDICARE, SELFPAY | PROVIDERS: PCP Internal Medicine; Visit Provider Nurse Practitioner Family | DX: I25.119 Atherosclerotic heart disease of native coronary artery with unspecified angina pectoris (principal); I10 Essential (primary) hypertension; Z95.1 Presence of aortocoronary bypass graft | CPT/HCPCS: 36415; 80048; 99214 ==

== ENCOUNTER 2021-12-12 09:33 | Outpatient (CLI) | payer MEDICARE, SELFPAY ==
[2021-12-12 10:06] LABS: Blood Urea Nitrogen 14 mg/dL (8-23); Calcium 9.2 mg/dL (8.5-10.5); Carbon Dioxide 28 mmol/L (22-29); Chloride 103 mmol/L (98-107); Glomerular Filtration Rate 55.2 mL/min (90-130); Glucose 205 mg/dL (65-115); Osmolality Calculated 296 mOsm/kg (285-295); Sodium 140 mmol/L (136-145)
== END 2021-12-12 09:34 | disposition home or self-care (01) ==
LOC: LAB 09:36
PROVIDERS: PCP Internal Medicine; Visit Provider Nurse Practitioner Family
DX: Z95.1 Presence of aortocoronary bypass graft (principal)
CPT/HCPCS: 36415; 80048

== ENCOUNTER → 2022-01-17 15:32 | Outpatient (BNVA) | payer MEDICARE, SELFPAY | PROVIDERS: PCP Internal Medicine; Visit Provider Internal Medicine | DX: I25.119 Atherosclerotic heart disease of native coronary artery with unspecified angina pectoris (principal); I10 Essential (primary) hypertension; E11.9 Type 2 diabetes mellitus without complications; Z79.4 Long term (current) use of insulin; E66.01 Morbid (severe) obesity due to excess calories; Z68.42 Body mass index [BMI] 45.0-49.9, adult; Z95.1 Presence of aortocoronary bypass graft | CPT/HCPCS: 99214 ==

== ENCOUNTER → 2022-03-26 08:41 | Outpatient (BNVA) | payer MEDICARE, SELFPAY | PROVIDERS: PCP Internal Medicine; Visit Provider Podiatrist Foot & Ankle Surgery | DX: E11.8 Type 2 diabetes mellitus with unspecified complications (principal); E11.42 Type 2 diabetes mellitus with diabetic polyneuropathy; L60.3 Nail dystrophy; M20.11 Hallux valgus (acquired), right foot; M20.12 Hallux valgus (acquired), left foot; M21.41 Flat foot [pes planus] (acquired), right foot; M21.42 Flat foot [pes planus] (acquired), left foot; G62.9 Polyneuropathy, unspecified; Z79.4 Long term (current) use of insulin; Z79.84 Long term (current) use of oral hypoglycemic drugs | CPT/HCPCS: 11721 ==

== ENCOUNTER 2022-06-28 13:07 | Outpatient (RCR) | payer MEDICARE, SELFPAY | END 2022-07-26 23:59 | disposition home or self-care (01) | LOC: CR 13:07 | PROVIDERS: PCP Internal Medicine; Visit Provider Internal Medicine | DX: Z95.5 Presence of coronary angioplasty implant and graft (principal) | CPT/HCPCS: 93798 ==

== ENCOUNTER → 2022-07-16 08:31 | Outpatient (BNVA) | payer MEDICARE, SELFPAY | PROVIDERS: PCP Internal Medicine; Visit Provider Podiatrist Foot & Ankle Surgery | DX: E11.42 Type 2 diabetes mellitus with diabetic polyneuropathy (principal); M20.11 Hallux valgus (acquired), right foot; M20.12 Hallux valgus (acquired), left foot; M21.41 Flat foot [pes planus] (acquired), right foot; M21.42 Flat foot [pes planus] (acquired), left foot; G62.89 Other specified polyneuropathies; Z79.84 Long term (current) use of oral hypoglycemic drugs; Z79.4 Long term (current) use of insulin | CPT/HCPCS: 99214 ==

== ENCOUNTER → 2022-07-22 14:40 | Outpatient (BNVA) | payer MEDICARE, SELFPAY | PROVIDERS: PCP Internal Medicine; Visit Provider Internal Medicine | DX: I25.119 Atherosclerotic heart disease of native coronary artery with unspecified angina pectoris (principal); I10 Essential (primary) hypertension; E11.9 Type 2 diabetes mellitus without complications; Z79.4 Long term (current) use of insulin; E66.01 Morbid (severe) obesity due to excess calories; Z68.42 Body mass index [BMI] 45.0-49.9, adult; Z95.1 Presence of aortocoronary bypass graft | CPT/HCPCS: 99213 ==

== ENCOUNTER 2022-08-02 08:58 | Outpatient (RCR) | payer OTHER, SELFPAY | END 2022-08-25 23:59 | disposition home or self-care (01) | LOC: CR 08:58 | PROVIDERS: PCP Internal Medicine; Referring Provider Internal Medicine; Visit Provider Internal Medicine | DX: Z95.5 Presence of coronary angioplasty implant and graft (principal) | CPT/HCPCS: 93798 ==

== ENCOUNTER 2022-08-28 14:46 | Outpatient (RCR) | payer OTHER, SELFPAY | END 2022-09-25 23:59 | disposition home or self-care (01) | LOC: CR 14:46 | PROVIDERS: PCP Internal Medicine; Referring Provider Internal Medicine; Visit Provider Internal Medicine | DX: Z95.5 Presence of coronary angioplasty implant and graft (principal) | CPT/HCPCS: 93798 ==

== ENCOUNTER 2022-09-27 14:58 | Outpatient (RCR) | payer OTHER, SELFPAY | END 2022-10-25 23:59 | disposition home or self-care (01) | LOC: CR 14:58 | PROVIDERS: PCP Internal Medicine; Referring Provider Internal Medicine; Visit Provider Internal Medicine | DX: Z95.5 Presence of coronary angioplasty implant and graft (principal) | CPT/HCPCS: 93798 ==

== ENCOUNTER 2022-11-05 09:48 | Outpatient (RCR) | payer SELFPAY | END 2022-11-25 23:59 | disposition home or self-care (01) | LOC: CR 09:48 | PROVIDERS: PCP Internal Medicine; Referring Provider Internal Medicine; Visit Provider Internal Medicine | DX: Z95.5 Presence of coronary angioplasty implant and graft (principal) ==

== ENCOUNTER 2022-11-26 13:35 | Outpatient (RCR) | payer SELFPAY | END 2022-12-26 23:59 | disposition home or self-care (01) | LOC: CR 13:35 | PROVIDERS: PCP Internal Medicine; Referring Provider Internal Medicine; Visit Provider Internal Medicine | DX: Z95.5 Presence of coronary angioplasty implant and graft (principal) ==

== ENCOUNTER 2022-12-27 13:03 | Outpatient (RCR) | payer SELFPAY | END 2023-01-25 23:59 | disposition home or self-care (01) | LOC: CR 13:03 | PROVIDERS: PCP Internal Medicine; Referring Provider Internal Medicine; Visit Provider Internal Medicine | DX: Z95.5 Presence of coronary angioplasty implant and graft (principal) ==

== ENCOUNTER → 2023-01-01 07:52 | Outpatient (BNVA) | payer MEDICARE, SELFPAY | PROVIDERS: PCP Internal Medicine; Visit Provider Podiatrist Foot & Ankle Surgery | DX: E11.8 Type 2 diabetes mellitus with unspecified complications (principal); E11.42 Type 2 diabetes mellitus with diabetic polyneuropathy; M20.11 Hallux valgus (acquired), right foot; M20.12 Hallux valgus (acquired), left foot; M21.41 Flat foot [pes planus] (acquired), right foot; M21.42 Flat foot [pes planus] (acquired), left foot; G62.89 Other specified polyneuropathies; Z79.4 Long term (current) use of insulin; Z79.84 Long term (current) use of oral hypoglycemic drugs | CPT/HCPCS: 99214 ==

== ENCOUNTER 2023-01-28 13:50 | Outpatient (RCR) | payer SELFPAY | END 2023-02-25 23:59 | disposition home or self-care (01) | LOC: CR 13:50 | PROVIDERS: PCP Internal Medicine; Referring Provider Internal Medicine; Visit Provider Internal Medicine | DX: Z95.5 Presence of coronary angioplasty implant and graft (principal) ==

== ENCOUNTER → 2023-04-02 07:51 | Outpatient (BNVA) | payer MEDICARE, SELFPAY | PROVIDERS: PCP Internal Medicine; Visit Provider Podiatrist Foot & Ankle Surgery | DX: E11.8 Type 2 diabetes mellitus with unspecified complications (principal); E11.42 Type 2 diabetes mellitus with diabetic polyneuropathy; M20.11 Hallux valgus (acquired), right foot; M20.12 Hallux valgus (acquired), left foot; M21.41 Flat foot [pes planus] (acquired), right foot; M21.42 Flat foot [pes planus] (acquired), left foot; G62.9 Polyneuropathy, unspecified; Z79.4 Long term (current) use of insulin | CPT/HCPCS: 99213 ==

== ENCOUNTER 2023-04-29 11:07 | Outpatient (RCR) | payer SELFPAY | END 2023-05-28 23:59 | disposition home or self-care (01) | LOC: CR 11:07 | PROVIDERS: PCP Internal Medicine; Referring Provider Internal Medicine; Visit Provider Internal Medicine | DX: Z98.61 Coronary angioplasty status (principal) ==

== ENCOUNTER 2023-05-29 14:02 | Outpatient (RCR) | payer SELFPAY | END 2023-06-26 23:59 | disposition home or self-care (01) | LOC: CR 14:02 | PROVIDERS: PCP Internal Medicine; Referring Provider Internal Medicine; Visit Provider Internal Medicine | DX: Z98.61 Coronary angioplasty status (principal) ==

== ENCOUNTER 2023-06-27 18:32 | Emergency (ER) | payer MEDICARE, SELFPAY ==
[2023-06-27 18:36] VITALS: BP 158/88; PULSE 92; RESP 18; TEMP 36.8; O2SAT 96; BMI 44.3
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
== END 2023-06-27 20:59 | disposition home or self-care (01) ==
PROVIDERS: Emergency Provider Physician Assistant; PCP Internal Medicine
DX: L03.113 Cellulitis of right upper limb (principal); Z79.02 Long term (current) use of antithrombotics/antiplatelets; Z79.82 Long term (current) use of aspirin; Z79.84 Long term (current) use of oral hypoglycemic drugs; Z79.4 Long term (current) use of insulin; I10 Essential (primary) hypertension; I25.10 Atherosclerotic heart disease of native coronary artery without angina pectoris; Z95.1 Presence of aortocoronary bypass graft
CPT/HCPCS: 73080; 99283

== ENCOUNTER → 2023-07-02 08:13 | Outpatient (BNVA) | payer MEDICARE, SELFPAY | PROVIDERS: PCP Internal Medicine; Visit Provider Podiatrist Foot & Ankle Surgery | DX: E11.8 Type 2 diabetes mellitus with unspecified complications (principal); E11.42 Type 2 diabetes mellitus with diabetic polyneuropathy; M20.11 Hallux valgus (acquired), right foot; M20.12 Hallux valgus (acquired), left foot; M21.41 Flat foot [pes planus] (acquired), right foot; M21.42 Flat foot [pes planus] (acquired), left foot; G62.89 Other specified polyneuropathies; L60.3 Nail dystrophy; L84 Corns and callosities; Z79.4 Long term (current) use of insulin; Z79.84 Long term (current) use of oral hypoglycemic drugs | CPT/HCPCS: 11055; 11721 ==

== ENCOUNTER 2023-08-15 09:56 | Outpatient (CLI) | payer MEDICARE, SELFPAY ==
--- NOTE | 2023-08-15 11:04 | US_ITS ---
WS: [id number] RENAL ULTRASOUND HISTORY: CHRONIC KIDNEY DZ, STAGE 3 COMPARISON: Renal ultrasound 02/27/2015 TECHNIQUE: 2-D and color Doppler imaging of the kidney submitted. Right kidney: 9.3 cm x 5.3 cm x 5.4 cm. Cortex: 1.1 cm Normal echogenicity with no hydronephrosis or mass. Size of the kidney is very slightly decreased sin ce 02/27/2015 but still normal. Left kidney: 10.6 cm x 4.9 cm x 5.3 cm. Cortex: 1.3 cm Normal echogenicity with no hydronephrosis or mass. Central parapelvic cyst measures 1.1 x 1.2 x 0.8 cm. Aorta: Normal. Urinary Bladder: Normal distention. IMPRESSION: 1. No significant renal atrophy or hydronephrosis. 2. Small simple LEFT parapelvic cyst. Maximum diameter 1.2 cm.
== END 2023-08-15 09:57 | disposition home or self-care (01) ==
PROVIDERS: PCP Internal Medicine; Visit Provider Internal Medicine
DX: N18.30 Chronic kidney disease, stage 3 unspecified (principal)
CPT/HCPCS: 76770

== ENCOUNTER → 2023-10-07 08:36 | Outpatient (BNVA) | payer MEDICARE, SELFPAY | PROVIDERS: PCP Internal Medicine; Visit Provider Podiatrist Foot & Ankle Surgery | DX: E11.42 Type 2 diabetes mellitus with diabetic polyneuropathy (principal); L60.3 Nail dystrophy; L84 Corns and callosities; Z79.4 Long term (current) use of insulin; Z79.84 Long term (current) use of oral hypoglycemic drugs | CPT/HCPCS: 11055; 11721 ==

== ENCOUNTER 2023-10-20 11:42 | Outpatient (RCR) | payer MEDICARE, SELFPAY | END 2023-10-21 23:59 | disposition home or self-care (01) | LOC: SPT 11:42 | PROVIDERS: PCP Internal Medicine; Visit Provider Internal Medicine | DX: M25.561 Pain in right knee (principal); M25.562 Pain in left knee | CPT/HCPCS: 97161 ==

== ENCOUNTER → 2024-01-13 07:43 | Outpatient (BNVA) | payer MEDICARE, SELFPAY | PROVIDERS: PCP Internal Medicine; Visit Provider Podiatrist Foot & Ankle Surgery | DX: M25.571 Pain in right ankle and joints of right foot (principal); M79.671 Pain in right foot; E11.42 Type 2 diabetes mellitus with diabetic polyneuropathy; L60.3 Nail dystrophy; L84 Corns and callosities; G89.29 Other chronic pain; Z79.4 Long term (current) use of insulin; Z79.84 Long term (current) use of oral hypoglycemic drugs | CPT/HCPCS: 11056; 11721; 20600; 20605; 73610; 73620; J1100; J3301; J3490 ==

== ENCOUNTER → 2024-02-11 13:04 | Outpatient (BNVA) | payer MEDICARE, SELFPAY | PROVIDERS: PCP Internal Medicine; Visit Provider Podiatrist Foot & Ankle Surgery | DX: E11.42 Type 2 diabetes mellitus with diabetic polyneuropathy; M10.9 Gout, unspecified; M79.671 Pain in right foot; M79.672 Pain in left foot; Z79.4 Long term (current) use of insulin; Z79.84 Long term (current) use of oral hypoglycemic drugs | CPT/HCPCS: 73630; 99213 ==

== ENCOUNTER → 2024-04-13 07:12 | Outpatient (BNVA) | payer MEDICARE, SELFPAY | PROVIDERS: PCP Internal Medicine; Visit Provider Podiatrist Foot & Ankle Surgery | DX: E11.42 Type 2 diabetes mellitus with diabetic polyneuropathy (principal); L60.3 Nail dystrophy; L84 Corns and callosities; M10.9 Gout, unspecified; M21.611 Bunion of right foot; M21.612 Bunion of left foot; M21.41 Flat foot [pes planus] (acquired), right foot; M21.42 Flat foot [pes planus] (acquired), left foot; Z79.4 Long term (current) use of insulin; Z79.84 Long term (current) use of oral hypoglycemic drugs | CPT/HCPCS: 11055; 11721; 99213 ==

== ENCOUNTER 2024-05-27 07:28 | Outpatient (CLI) | payer MEDICARE, SELFPAY ==
--- NOTE | 2024-05-27 07:43 | US_ITS ---
WS: [id number] RENAL ULTRASOUND HISTORY: CHRONIC KIDNEY DISEASE COMPARISON: 08/15/2023 TECHNIQUE: 2-D and color Doppler imaging of the kidney submitted. Right kidney: 10.2 cm x 5.9 cm x 4.9 cm. Cortex: 1.4 cm Normal echogenicity with no hydronephrosis or mass. Left kidney: 10.9 cm x 6.2 cm x 5.8 cm. Cortex: 1.8 cm Normal echogenicity with no hydronephrosis or mass. Previously described parapelvic cyst is not ident ified today. Aorta: Normal. Urinary Bladder: Normal distention. US/US renal BI* [id number] IMPRESSION: Normal renal ultrasound. No atrophy or medical renal disease identified by ultr asound.
== END 2024-05-27 07:29 | disposition home or self-care (01) ==
LOC: RAD 07:30
PROVIDERS: PCP Internal Medicine; Visit Provider Internal Medicine
DX: N18.30 Chronic kidney disease, stage 3 unspecified (principal)
CPT/HCPCS: 76770

== ENCOUNTER 2024-05-30 17:30 | Emergency (ER) | payer MEDICARE, SELFPAY ==
[2024-05-30 17:33] VITALS: BP 152/90; PULSE 77; RESP 20; TEMP 36.7; O2SAT 96
--- NOTE | 2024-05-30 17:34 | ECG_ITS ---
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 Measurements Intervals [place] Rate: 76 P: 1 NV: 156 QRS: 20 QRSD: 93 T: 54 QT: 334 QTc: 376 Interpretive Statements SINUS RHYTHM Compared to ECG 07/09/2020 07:18:16 T-wave abnormality no longer present Electronically Signed On 06-03-2024 22:10:24 PET AMBASSADOR by Paul Dove M.D. [email or web address]
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
--- NOTE | 2024-05-30 18:28 | W.ED.TRAUMA ---
HPI - Trauma General: Chief Complaint: Trauma Stated Complaint: shoulder injury, sob Time Seen by Provider: 05/30/24 17:43 History of Present Illness: 68-year-old man with history of obesity, diabetes, coronary artery disease status post CABG and stents on Plavix and hypertension who presents to the emergency room after a truck he was working on fell off the [place] and onto him. Initially had a hard time catching his breath but at this point he says he is breathing well and has no pain with breathing. Oxygen saturations are good on presentation. He is complaining of some right shoulder pain and some pain in his mid upper back. No head injury. No neck injury. No abdominal pain. No nausea or vomiting. No loss of consciousness. Related Data Home Medications Medication Instructions Recorded Confirmed aspirin 81 mg chewable tablet 81 mg PO QPM 07/08/20 04/13/24 hydrochlorothiazide 25 mg tablet 25 mg PO QAM 07/08/20 04/13/24 insulin aspart U-100 100 unit/mL 20 - 25 unit SUBCUT TIDWM 07/08/20 04/13/24 (3 mL) subcutaneous pen (Novolog FlexPen U-100 Insulin aspart) insulin degludec 100 unit/mL (3 50 unit SUBCUT BEDTIME 07/08/20 04/13/24 mL) subcutaneous pen (Tresiba FlexTouch U-100 insulin) isosorbide mononitrate 120 mg 120 mg PO QAM 07/08/20 04/13/24 tablet,extended release 24 hr levothyroxine 175 mcg tablet 175 mcg PO QAM 07/08/20 04/13/24 metformin 500 mg tablet 500 mg PO BID 07/08/20 04/13/24 metoprolol tartrate 25 mg tablet 25 mg PO BID 07/08/20 04/13/24 pantoprazole 40 mg tablet,delayed 40 mg PO QAM 07/08/20 04/13/24 release amlodipine 5 mg tablet 10 mg PO QAM 08/27/21 04/13/24 clopidogrel 75 mg tablet 75 mg PO QAM 08/27/21 04/13/24 ezetimibe 10 mg tablet 10 mg PO QAM 08/27/21 04/13/24 lisinopril 40 mg tablet 40 mg PO QAM 08/27/21 04/13/24 rosuvastatin 40 mg tablet 40 mg PO QAM 08/27/21 04/13/24 semaglutide 0.25 mg or 0.5 mg (2 mg SUBCUT 03/30/24 04/13/24 mg/1.5 mL) subcutaneous pen injector (OzTrackVia) Previous Rx's Medication Instructions Recorded Diabetic shoes with 3 sets of #1 ea 04/10/21 insoles fluticasone propionate 50 1 spray intranasal DAILY #16 grams 07/30/22 mcg/actuation nasal spray,suspension (Flonase Allergy Relief) mupirocin 2 % topical ointment 1 applic topical BID #15 grams 06/20/23 gabapentin 300 mg capsule 300 mg PO TID 90 days #270 caps 07/02/23 sulfamethoxazole 800 1 tab PO Q12H 10 days #20 tabs 03/30/24 mg-trimethoprim 160 mg tablet (Bactrim DS) meloxicam 7.5 mg tablet 7.5 mg PO DAILY #30 tabs 04/08/24 Diabetic shoes with 3 inserts #1 ea 04/13/24 cyclobenzaprine 10 mg tablet 10 mg PO Q8H PRN muscle spasm #20 05/30/24 tabs hydrocodone 5 mg-acetaminophen 325 1 tab PO Q6H PRN pain #20 tabs 05/30/24 mg tablet polyethylene glycol 3350 17 17 g PO DAILY #510 grams 05/30/24 gram/dose oral powder (Miralax) tramadol 50 mg tablet 50 mg PO Q8H PRN pain #20 tabs 05/30/24 Allergies Allergy/AdvReac Type Severity Reaction Status Date / Time No Known Allergies Allergy Verified 05/30/24 17:42 Review of Systems Narrative: Constitutional symptoms: Negative except as documented in HPI. Skin symptoms: Negative except as documented in HPI. Eye symptoms: Negative except as documented in HPI. ENMT symptoms: Negative except as documented in HPI. Respiratory symptoms: Negative except as documented in HPI. Cardiovascular symptoms: Negative except as documented in HPI. Gastrointestinal symptoms: Negative except as documented in HPI. Genitourinary symptoms: Negative except as documented in HPI. Musculoskeletal symptoms: Negative except as documented in HPI. Neurologic symptoms: Negative except as documented in HPI. Psychiatric symptoms: Negative except as documented in HPI. Endocrine symptoms: Negative except as documented in HPI. PFSH ED PFSH: Medical History Chest pain Acute posterior myocardial infarction Percutaneous transluminal coronary angioplasty (PTCA) within last 14 to 24 months Gastroesophageal reflux disease Sleep apnea Hypothyroidism Hypertension Coronary artery disease Surgical History History of coronary artery bypass graft x 3 Family History Mother Diabetes Hyperlipidemia Hypertension Father CAD (coronary artery disease) Hyperlipidemia Hypertension Diabetes Social History Smoking and tobacco/nicotine status: former use of tobacco/nicotine Alcohol intake: never Substance/Drug Use: never Current occupational status: disabled Physical Exam Narrative: EXAM NARRATIVE: General: Alert, no acute distress. Skin: Warm, dry. Head: Normocephalic, atraumatic. Neck: Supple, trachea midline. Eye: Extraocular movements are intact. Ears, nose, mouth and throat: mucosa moist. Cardiovascular: Regular, Normal peripheral perfusion. Respiratory: Lungs are clear to auscultation, respirations are non-labored, breath sounds are equal, Symmetrical chest wall expansion. Gastrointestinal: Soft, Nontender, Non distended Back: There is some paraspinal muscle tenderness but no bony tenderness or step-offs. Musculoskeletal: Normal ROM, no deformity. Neurological: Alert and oriented, No focal neurological deficit observed. Psychiatric: Cooperative, appropriate mood & affect. Course Vital Signs: Vital signs: Vital Signs Temperature 98.0 F 05/30/24 17:33 Pulse Rate 68 05/30/24 19:12 Respiratory Rate 22 H 05/30/24 19:12 Blood Pressure 158/87 05/30/24 19:12 Pulse Oximetry 93 05/30/24 19:12 Oxygen Delivery Me thod Room Air 05/30/24 19:12 MDM - Trauma Medical Decision Making CT of the chest: No acute findings 4 mm right upper lobe nodule. Follow-up needed. This was reviewed and interpreted by myself the emergency room physician. I also reviewed the radiology report. CT of the thoracic spine: 2, T5 and T6 transverse process fractures on the right. Minimal displacement and no displacement. This was reviewed and interpreted by myself the emergency room physician. I also reviewed the radiology report. X-ray the shoulder: No acute process. This was reviewed and interpreted by myself the emergency room physician. I also reviewed the radiology report. Assessment and plan: Transverse process fracture Rib contusion Shoulder injury ? [place] in the emergency room. To for home. Prescriptions called in. - Discharged home - Discussed plan with patient. Answered any questions. - Evaluation and treatment of this problem were appropriate in the emergency setting. Lab Data Radiology Impressions Chest CT 05/30/24 17:51 IMPRESSION: 1. No acute findings. 2. 4 mm right upper lobe nodule. For patients at low risk (minimal or absent history of smoking and of other known risk factors), no routine follow-up is indicated. For patients at high risk (history of smoking or of other known risk factors), consider optional CT Chest at 12 months. (Reference: Zandra) 3. Additional chronic and incidental findings as above, to include atherosclerosis and cholelithiasis. REFERENCES: Zandra Maddox, et al. Guidelines for Management of Incidental Pulmonary Nodules Detected on CT Images: From the Fleischner Society 2017. Radiology. 2017;284(1):228-243. ADDENDUM: 05/30/242034 Addendum: Right T5 and T6 transverse process fractures seen to advantage on thoracic spine CT. Shoulder X-Ray 05/30/24 17:51 IMPRESSION: No acute findings. Thoracic Spine CT 05/30/24 17:51 IMPRESSION: 1. Minimally displaced right T5 transverse process fracture. 2. Nondisplaced right T6 transverse process fracture. All radiology interpretation(s) finalized by discharge Discharge Plan Discharge Patient Disposition: Home Clinical Impression: Multiple transverse process fractures, Chest wall contusion, Back injury, Shoulder injury, Incidental pulmonary nodule Condition: Stable Prescriptions: New cyclobenzaprine 10 mg tablet 10 mg PO Q8H PRN (Reason: muscle spasm) Qty: 20 0RF tramadol 50 mg tablet 50 mg PO Q8H PRN (Reason: pain) Qty: 20 0RF hydrocodone-acetaminophen 5-325 mg tablet 1 tab PO Q6H PRN (Reason: pain) Qty: 20 0RF polyethylene glycol 3350 [Miralax] 17 gram/dose powder 17 g PO DAILY Qty: 510 0RF Rx Instructions: Take 1 scoop daily while taking pain medications. No Action (DME) Diabetic shoes with 3 sets of insoles See Rx Instructions .Route .MEDSUPPLY Qty: 1 0RF Rx Instructions: As directed by ROSALINDA&O gabapentin 300 mg capsule 300 mg PO TID 90 Days Qty: 270 2RF mupirocin 2 % ointment 1 applic topical BID Qty: 15 0RF Ozempic 0.25 mg or 0.5 mg(2 mg/1.5 mL) pen injector SUBCUT sulfamethoxazole-trimethoprim [Bactrim DS] 800-160 mg tablet 1 tab PO Q12H 10 Days Qty: 20 0RF fluticasone propionate [Flonase Allergy Relief] 50 mcg/actuation spray,suspension 1 spray intranasal DAILY Qty: 16 0RF Rx Instructions: administer into each nostril (DME) Diabetic shoes with 3 inserts See Rx Instructions .Route .MEDSUPPLY Qty: 1 0RF Rx Instructions: As directed meloxicam 7.5 mg tablet 7.5 mg PO DAILY Qty: 30 0RF metformin 500 mg tablet 500 mg PO BID Hold Instructions: Resume on 11/19/21. levothyroxine 175 mcg tablet 175 mcg PO QAM isosorbide mononitrate 120 mg tablet extended release 24 hr 120 mg PO QAM pantoprazole 40 mg tablet,delayed release (DR/EC) 40 mg PO QAM aspirin 81 mg Tablet,Chewable 81 mg PO QPM hydrochlorothiazide 25 mg tablet 25 mg PO QAM insulin aspart U-100 [Novolog FlexPen U-100 Insulin] 100 unit/mL (3 mL) insulin pen 20 - 25 unit SUBCUT TIDWM Rx Instructions: (20- 25 units per sliding scale) metoprolol tartrate 25 mg tablet 25 mg PO BID Tresiba FlexTouch U-100 100 unit/mL (3 mL) insulin pen 50 unit SUBCUT BEDTIME lisinopril 40 mg tablet 40 mg PO QAM ezetimibe 10 mg tablet 10 mg PO QAM rosuvastatin 40 mg tablet 40 mg PO QAM clopidogrel 75 mg tablet 75 mg PO QAM amlodipine 5 mg tablet 10 mg PO QAM Discharge Orders: Discharge ED (Routine); Ordered 05/30/24 Ordered By: Alicia Clemens Referrals: Celina Fofana MD [Primary Care Provider] - Discharge Diet: Usual diet Discharge Activity: Increase activity as tolerated Patient Instructions: Opioid Safety, Pain Management Activity Restrictions/Additional Instructions: A pulmonary nodule was seen on imaging. This will need follow up imaging with your primary provider. Please schedule an appointment concerning this. Thank you for choosing [facility] for your healthcare needs today. Please realize this is an emergency room and that we are providing you with a medical screening exam and this may not be complete and all inclusive of all the testing and or work up that you may need to determine your ailment or severity of your illness. You have been screened and evaluated and felt safe for discharge. Health conditions do change or evolve sometimes and as such it is important that you follow up with your Primary Doctor to be re checked, 3-5 days is a general good time frame for follow up. You are always welcome to return to the ED for re assessment if your symptoms are worsening or you have new concerns Coding Level of Care Code ED School Secretary for Radha Figueroa
[2024-05-30 18:42] VITALS: PULSE 73; RESP 17; O2SAT 94
[2024-05-30] MEDS: HYDROcodone-acetaminophen 10-325 mg Tablet 1 TAB PO (19:11)
[2024-05-30 19:12] VITALS: BP 158/87; PULSE 68; RESP 22; O2SAT 93
[2024-05-30] MEDS: HYDROcodone-acetaminophen 5-325 mg Tablet 2 TAB PO (21:17)
[2024-05-30 21:27] VITALS: BP 153/77; PULSE 67; O2SAT 94
== END 2024-05-30 21:28 | disposition home or self-care (01) ==
PROVIDERS: Emergency Provider Emergency Medicine; PCP Internal Medicine
DX: S22.051A Stable burst fracture of T5-T6 vertebra, initial encounter for closed fracture (principal); S20.219A Contusion of unspecified front wall of thorax, initial encounter; M25.511 Pain in right shoulder; R91.1 Solitary pulmonary nodule; Z79.82 Long term (current) use of aspirin; Z79.4 Long term (current) use of insulin; Z87.891 Personal history of nicotine dependence; I25.10 Atherosclerotic heart disease of native coronary artery without angina pectoris; Z95.1 Presence of aortocoronary bypass graft; I10 Essential (primary) hypertension; E11.9 Type 2 diabetes mellitus without complications; W20.8XXA Other cause of strike by thrown, projected or falling object, initial encounter
CPT/HCPCS: 71250; 72128; 73030; 93005; 99284

== ENCOUNTER → 2024-07-13 07:42 | Outpatient (BNVA) | payer MEDICARE, SELFPAY | PROVIDERS: PCP Internal Medicine; Visit Provider Podiatrist Foot & Ankle Surgery | DX: E11.42 Type 2 diabetes mellitus with diabetic polyneuropathy (principal); L60.3 Nail dystrophy; L84 Corns and callosities; E11.8 Type 2 diabetes mellitus with unspecified complications; M10.9 Gout, unspecified; M21.611 Bunion of right foot; M21.612 Bunion of left foot; M21.41 Flat foot [pes planus] (acquired), right foot; M21.42 Flat foot [pes planus] (acquired), left foot; Z79.84 Long term (current) use of oral hypoglycemic drugs; Z79.4 Long term (current) use of insulin | CPT/HCPCS: 11056; 11721; 99213 ==

== ENCOUNTER → 2024-09-21 10:28 | Outpatient (BNVA) | payer MEDICARE, SELFPAY | PROVIDERS: PCP Internal Medicine; Visit Provider Emergency Medicine | DX: M19.071 Primary osteoarthritis, right ankle and foot (principal); M25.471 Effusion, right ankle; Z87.39 Personal history of other diseases of the musculoskeletal system and connective tissue | CPT/HCPCS: 73610; 80048; 84550 ==

== ENCOUNTER → 2024-10-18 07:49 | Outpatient (BNVA) | payer MEDICARE, SELFPAY | PROVIDERS: PCP Internal Medicine; Visit Provider Podiatrist Foot & Ankle Surgery | DX: E11.42 Type 2 diabetes mellitus with diabetic polyneuropathy (principal); L60.3 Nail dystrophy; L84 Corns and callosities; M21.611 Bunion of right foot; M21.612 Bunion of left foot; M21.41 Flat foot [pes planus] (acquired), right foot; M21.42 Flat foot [pes planus] (acquired), left foot; Z79.4 Long term (current) use of insulin; Z79.84 Long term (current) use of oral hypoglycemic drugs | CPT/HCPCS: 11055; 11721 ==

== ENCOUNTER 2024-10-24 11:32 | Emergency (ER) | payer MEDICARE, SELFPAY ==
--- NOTE | 2024-10-24 11:36 | XRR_ITS ---
PROCEDURE INFORMATION: Exam: XR Left Knee Exam date and time: 10/24/2024 1:12 PM Age: 68 years old Clinical indication: Pain; Knee; Left; Additional info: Injury TECHNIQUE: Imaging protocol: Radiologic exam of the left knee. Views: 3 views. COMPARISON: CR XR knees AP WB w BI lmt ORTH 09/13/2020 11:11 AM FINDINGS: Bones/joints: [id number] osteoarthrosis involving all 3 compartments. Small well corticated ossicle projects over the anterior aspect of the joint on the lateral view. No fractures or dislocations are seen. Soft tissues: Surgical clips are seen in the soft tissues. There may be a suprapatellar joint effusion which is small. XR/XR knee LT 3V* [id number] IMPRESSION: No acute findings.
--- OUTSIDE RECORDS SUMMARY | 2024-10-24 11:36 | XMS_ITS | Encounter Summary ---
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
--- OUTSIDE RECORDS SUMMARY | 2024-10-24 11:36 | XMS_ITS | Encounter Summary ---
Author Organization [facility] Address [address] [place] [address] Care Team Providers Care Personal Banker Name Role Phone Celina Fofana MD Primary Care Provider +1- [phone] Encounter Details Date Type Department Care Team (Latest Contact Info) Description 03/02/2003 Outpatient Historical [facility] Medicine [address] [phone] Froy Henry DO NO ADDRESS ON FILE HYPERTENSION NOS (Primary Dx); HYPERLIPIDEMIA NEC/NOS; CHEST PAIN NOS; Vaccine for influenza Social History Tobacco Use Types Packs/Day Years Used Date Smoking Tobacco: Never Assessed Sex and Gender Information Value Date Recorded Sex Assigned at Not on file 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 Gender Identity Not on file Sexual Orientation Not on file documented as of this encounter Plan of Treatment Not on file documented as of this encounter Visit Diagnoses Diagnosis Unspecified essential hypertension- Primary Other and unspecified hyperlipidemia Chest pain, unspecified Vaccine for influenza Need for prophylactic vaccination and inoculation against influenza documented in this encounter Care Teams Personal Banker Relationship Specialty Start Date End Date Celina Fofana MD [address] [place] [address] PCP - General Internal Medicine 10/13/17 documented as of this encounter
--- OUTSIDE RECORDS SUMMARY | 2024-10-24 11:36 | XMS_ITS | Encounter Summary ---
Author Organization [facility] Address [address] [place] [address] Care Team Providers Care Tractor Trailer Truck Driver Name Role Phone Celina Fofana MD Primary Care Provider +1- [phone] Encounter Details Date Type Department Care Team (Latest Contact Info) Description 03/07/2003 Outpatient Historical [facility] Medicine [address] [phone] Froy Henry, NO ADDRESS ON FILE HYPERLIPIDEMIA NEC/NOS (Primary Dx); HYPERTENSION NOS Social History Tobacco Use Types Packs/Day Years Used Date Smoking Tobacco: Never Assessed Sex and Gender Information Value Date Recorded Sex Assigned at Not on file 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
--- OUTSIDE RECORDS SUMMARY | 2024-10-24 11:36 | XMS_ITS | Encounter Summary ---
Author Organization [facility] Address [address] [place] [address] Care Team Providers Care Boring Machine Operator Horizontal Name Role Phone Celina Fofana MD Primary Care Provider +1- [phone] Encounter Details Date Type Department Care Team (Latest Contact Info) Description 06/10/2002 Outpatient Historical [facility] Medicine [address] [phone] Monica Wells MD NO ADDRESS ON FILE GOUT NOS (Primary Dx) Social History Tobacco Use Types Packs/Day Years Used Date Smoking Tobacco: Never Assessed Sex and Gender Information Value Date Recorded Sex Assigned at Not on file Legal 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
--- OUTSIDE RECORDS SUMMARY | 2024-10-24 11:36 | XMS_ITS | Encounter Summary ---
Author Organization [facility] Address [address] [place] [address] Care Team Providers Care Tile Applicator Name Role Phone Celina Fofana MD Primary Care Provider +1- [phone] Encounter Details Date Type Department Care Team (Latest Contact Info) Description 05/15/1998 Outpatient Historical [facility] Medicine [address] [phone] Froy Henry, NO ADDRESS ON FILE Unspecified essential hypertension (Primary Dx) Social History Tobacco Use Types Packs/Day Years Used Date Smoking Tobacco: Never Assessed Sex and Gender Information Value Date Recorded Sex Assigned at Not on file 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
--- OUTSIDE RECORDS SUMMARY | 2024-10-24 11:36 | XMS_ITS | Encounter Summary ---
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
--- OUTSIDE RECORDS SUMMARY | 2024-10-24 11:36 | XMS_ITS | Encounter Summary ---
Author Organization [facility] Address [address] [place] [address] Care Team Providers Care Fulling Mill Operator Name Role Phone Celina Fofana MD Primary Care Provider +1- [phone] Encounter Details Date Type Department Care Team (Latest Contact Info) Description 07/24/1998 Outpatient Historical [facility] Medicine [address] [phone] Froy Henry DO NO ADDRESS ON FILE Gouty arthropathy (Primary Dx) Social History Tobacco Use Types Packs/Day Years Used Date Smoking Tobacco: Never Assessed Sex and Gender Information Value Date Recorded Sex Assigned at Not on file Legal 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
--- OUTSIDE RECORDS SUMMARY | 2024-10-24 11:37 | XMS_ITS | Encounter Summary ---
Author Organization [facility] Address [address] [place] [address] Care Team Providers Care Crystal Grower Name Role Phone Celina Fofana MD Primary Care Provider +1- [phone] Encounter Details Date Type Department Care Team (Latest Contact Info) Description 12/07/2004 Outpatient Historical [facility] Medicine [address] [facility] [address] [place] [phone] Froy Henry DO NO ADDRESS ON FILE JOINT PAIN-L/LEG (Primary Dx); HYPERLIPIDEMIA NEC/NOS; CORON ATHEROSCL [place] CORON VESSEL Social History Tobacco Use Types Packs/Day Years Used Date Smoking Tobacco: Never Assessed Sex and Gender Information Value Date Recorded Sex Assigned at Not on file 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
--- OUTSIDE RECORDS SUMMARY | 2024-10-24 11:37 | XMS_ITS | Patient Health Record ---
Author Organization [facility] Address [address] [place] [address] Care Team Providers Care Aircraft Avionics Technician Name Role Phone Ct WAN, Celina Primary Care Provider Oscar George Unavailable [phone] Allergies No Known Allergies Reason For Referral No Information Medications Medication SIG (Take, Route, Frequency, Duration) Notes Start Date End Date Status Cialis 20 MG 1 tablet as needed Orally as needed for 30 day(s) Active Insulin NPH (Human) (Isophane) Active metFORMIN HCl 500 MG 1 tablet with a meal Orally bid Not-Taking Tresiba Active hydroCHLOROthiazide 25 MG 1 tablet in th e morning Orally Once a day Active Plavix Active Rosuvastatin Calcium Active Gabapentin 300 MG 1 capsule Orally TID Active Allopurinol Active Lisinopril Active Aspirin Adult Low Dose Active Levothyroxine Sodium Active Pantoprazole Sodium Active Social History Tobacco Use: Social History Observation Description Date Details (start date - stop date) Never Smoker NA - NA xTobacco Use/Smoking Question Answer Notes Are you a nonsmoker Alcohol Screen (Audit-C) Question Answer Notes Did you have a drink containing alcohol in the p ast year? 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) Active confirmed Problem 266292342 BPH loc w/o ur obs/LUTS (N40.0) Active confirmed Problem 782230272 Epididymoorchiti s (N45.3) Active confirmed Plan Of Treatment Pending Test Test Name Order Date CBC w\ Auto Diff [id number] 08/13/2022 Estradiol Level 05773 08/13/2022 PSA Diagnostic--[id number] 08/13/2022 Testosterone, Bio and SHBG, Adult Male 8 4403, 98121 08/13/2022 Scrotum/Testicle-06021 10/01/2021 Insurance Providers Payer Name Payer Address Payer Phone Subscriber Number Group Number Insured Name Patient Relationship to Insured Coverage Start Date Coverage End Date [employer] Medicare Replacement [address] [address] [place] [address] [id number] Murray Harp Self - patient is the insured Medical (General) History Medical History History ICD Code diabetic thyroid disease heart disease epididymitis HBP High Cholesterol Nueropathy BPH w/LUTS Hydrocele Surgical History Surgery Date(Month/Year) epididymoorchitis ED prostate surgery at age 18 elbow left surgery appendectomy Stent heart 11/15 CABG triple 2003 Hospitalization History Reason Date(Month/Year) above surgeries
--- OUTSIDE RECORDS SUMMARY | 2024-10-24 11:37 | XMS_ITS | Encounter Summary ---
Author Organization [facility] Address [address] [place] [address] Care Team Providers Care Home Security Professional Name Role Phone Celina Fofana MD Primary Care Provider +1- [phone] Encounter Details Date Type Department Care Team (Latest Contact Info) Description 03/29/2005 Outpatient Historical [facility] Sleep Center [address] [place] [address] Drew Singer MD NO ADDRESS ON FILE Obstructive sleep apnea (Primary Dx) Social History Tobacco Use Types Packs/Day Years Used Date Smoking Tobacco: Never Assessed Sex and Gender Information Value Date Recorded Sex Assigned at Not on file 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
--- OUTSIDE RECORDS SUMMARY | 2024-10-24 11:37 | XMS_ITS | Encounter Summary ---
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
--- OUTSIDE RECORDS SUMMARY | 2024-10-24 11:37 | XMS_ITS | Encounter Summary ---
Author Organization [facility] Address [address] [place] [address] Care Team Providers Care Learning Center Coordinator Name Role Phone Celina Fofana MD Primary Care Provider +1- [phone] Encounter Details Date Type Department Care Team (Latest Contact Info) Description 01/06/[address] 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 Gender Identity Not on file Sexual Orientation Not on file documented as of this encounter Plan of Treatment Not on file documented as of this encounter Visit Diagnoses Diagnosis Coronary atherosclerosis of [place] coronary artery- Primary Unspecified essential hypertension Pure hypercholesterolem Pure hypercholesterolemia Aortocoronary bypass Postsurgical aortocoronary bypass status documented in this encounter Care Teams Learning Center Coordinator Relationship Specialty Start Date End Date Celina Fofana MD [address] [place] [address] PCP - General Internal Medicine 10/13/17 documented as of this encounter
--- OUTSIDE RECORDS SUMMARY | 2024-10-24 11:37 | XMS_ITS | Encounter Summary ---
Author Organization [facility] Address [address] [place] [address] Care Team Providers Care Curbstone Setter Name Role Phone Celina Fofana MD Primary Care Provider +1- [phone] Encounter Details Date Type Department Care Team (Late st Contact Info) Description 11/22/2003 Outpatient Historical [facility] Cardiology- [place] [address] [place] [address] Vern Hodge MD [address] [facility] [address] [place] [address] CORON ATHEROSCL [place] CORON VESSEL (Primary Dx); Aortocoronary bypass; Pure hypercholesterolem; HYPERTENSION NOS Social History Tobacco Use Types Packs/Day Years Used Date Smoking Tobacco: Never Assessed Sex and Gender Information Value Date Recorded Sex Assigned at Not on file 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 Gender Identity Not on file Sexual Orientation Not on file documented as of this encounter Plan of Treatment Not on file documented as of this encounter Visit Diagnoses Diagnosis Coronary atherosclerosis of [place] coronary artery- Primary Aortocoronary bypass Postsurgical aortocoronary bypass status Pure hypercholesterolem Pure hypercholesterolemia Unspecified essential hypertension documented in this encounter Care Teams Curbstone Setter Relationship Specialty Start Date End Date Celina Fofana MD [address] [place], [place] [address] PCP - General Internal Medicine 10/13/17 documented as of this encounter
--- OUTSIDE RECORDS SUMMARY | 2024-10-24 11:37 | XMS_ITS | Encounter Summary ---
Author Organization [facility] Address [address] [place] [address] Care Team Providers Care Education Specialist Name Role Phone Celina Fofana MD Primary Care Provider +1- [phone] Encounter Details Date Type Department Care Team (Latest Contact Info) Description 11/15/2005 Outpatient Historical [facility] Family Medicine- [address] [place] [address] Tessy Weathers NP NO ADDRESS ON FILE Insect Bite NEC-Infected (Primary Dx); Cellulitis and Abscess of Unspecified Site Social History Tobacco Use Types Packs/Day Years Used Date Smoking Tobacco: Never Assessed Sex and Gender Information Value Date Recorded Sex Assigned at Not on file Legal 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 Gender Identity Not on file Sexual Orientation Not on file documented as of this encounter Plan of Treatment Not on file documented as of this encounter Visit Diagnoses Diagnosis Other, multiple, and unspecified sites, insect bite, nonvenomous, infected(919.5)- Primary Other, multiple, and unspecified sites, insect bite, nonvenomous, infected Cellulitis and abscess of unspecified site documented in this encounter Care Teams Education Specialist Relationship Specialty Start Date End Date Celina Fofana MD [address] [place] [address] PCP - General Internal Medicine 10/13/17 documented as of this encounter
--- OUTSIDE RECORDS SUMMARY | 2024-10-24 11:37 | XMS_ITS | Encounter Summary ---
Author Organization [facility] Address [address] [place] [address] Care Team Providers Care Stone Cutter Name Role Phone Celina Fofana MD Primary Care Provider +1- [phone] Encounter Details Date Type Department Care Team (Latest Contact Info) Description 11/30/2004 Outpatient Historical 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
--- OUTSIDE RECORDS SUMMARY | 2024-10-24 11:37 | XMS_ITS | Encounter Summary ---
Author Organization [facility] Address [address] [place] [address] Care Team Providers Care Core Blower Operator Name Role Phone Celina Fofana MD Primary Care Provider +1- [phone] Encounter Details Date Type Department Care Team (Latest Contact Info) Description 12/12/2004 Outpatient Historical [facility] Sleep Center [address] [place] [address] [place] [address] Drew Singer MD NO ADDRESS ON FILE HYPERSOMNI W SLEEP APNEA (Primary Dx) Social History Tobacco Use Types Packs/Day Years Used Date Smoking Tobacco: Never Assessed Sex and Gender Information Value Date Recorded Sex Assigned at Not on file 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
--- OUTSIDE RECORDS SUMMARY | 2024-10-24 11:37 | XMS_ITS | Encounter Summary ---
Author Organization [facility] Address [address] [place] [address] Care Team Providers Care Branch Account Executive Name Role Phone Celina Fofana MD Primary Care Provider +1- [phone] Encounter Details Date Type Department Care Team (Latest Contact Info) Description 02/24/2002 Outpatient Historical [facility] Family Medicine- [place] [address] [place] [address] Monica Wells MD NO ADDRESS ON FILE GOUTY ARTHROPATHY (Primary Dx) Social History Tobacco Use Types Packs/Day Years Used Date Smoking Tobacco: Never Assessed Sex and Gender Information Value Date Recorded Sex Assigned at Not on file Legal 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
--- OUTSIDE RECORDS SUMMARY | 2024-10-24 11:37 | XMS_ITS | Encounter Summary ---
Author Organization [facility] Address [address] [place] [address] Care Team Providers Care Chipping Machine Operator Name Role Phone Celina Fofana MD Primary Care Provider +1- [phone] Encounter Details Date Type Department Care Team (Latest Contact Info) Description 08/21/[address] 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
--- OUTSIDE RECORDS SUMMARY | 2024-10-24 11:37 | XMS_ITS | Encounter Summary ---
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
--- OUTSIDE RECORDS SUMMARY | 2024-10-24 11:37 | XMS_ITS | Encounter Summary ---
Author Organization [facility] Address [address] [place] [address] Care Team Providers Care Grease Rack Worker Name Role Phone Celina Fofana MD Primary Care Provider +1- [phone] Encounter Details Date Type Department Care Team (Late st Contact Info) Description 02/13/2005 Emergency [facility] Emergency Department [address] 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 Gender Identity Not on file Sexual Orientation Not on file documented as of this encounter Plan of Treatment Not on file documented as of this encounter Procedures Procedure Name Priority Date/Time Associated Diagnosis Comments CBC WITH DIFFERENTIAL Routine 02/13/2005 6:41 PM CDT SEDIMENTATION RATE Routine 02/13/2005 6: 41 PM CDT C-REACTIVE PROTEIN Routine 02/13/2005 6: 41 PM CDT URIC ACID Routine 02/13/2005 6:41 PM CDT documented in this encounter Results * (ABNORMAL) C-REACTIVE PROTEIN (02/13/2005 6:41 PM CDT) CRP 1.7(H) 0.0 - 1.0 mg/dL INTERFACE SYSTEM Comment: This is a standard CRP method, and is not intended as a marker for Heart Disease This test cannot be used to assess cardiac risk. As of 12/19/2003, the linearity on CRP has been changed to 0.3-11.0 mg/dl. The past range was 0.7-11.0 mg/dl. 02/13/2005 6:41 PM CDT Nallely E Ron DO CHEMISTRY ORDERABLES Final Resu lt Performing Organization Address [facility] Number INTERFACE SYSTEM Refer to clinic/hospital department * URIC ACID (02/13/2005 6:41 PM CDT) URIC ACID 5.7 3.5 - 8.5 mg/dL INTERFACE SYSTEM 02/13/2005 6:41 PM CDT us Nallely Velasquez DO CHEMISTRY ORDERABLES Final Resu lt Performing Organization Address [facility] Number INTERFACE SYSTEM Refer to clinic/hospital department * (ABNORMAL) SEDIMENTATION RATE (02/13/2005 6:41 PM CDT) ESR (SEDIMENTATION RATE) 43(H) 0 - 20 mm/hr INTERFACE SYSTEM 02/13/2005 6:41 PM CDT Nallely Velasquez DO HEMATOLOGY ORDERABLES Final Res ult Performing Organization Address [facility] INTERFACE SYSTEM Refer to clinic/hospital department * (ABNORMAL) CBC WITH DIFFERENTIAL (02/13/2005 6:41 PM CDT) WBC 9.5 4.5 - 11.0 K/ul INTERFACE SYSTEM RBC 4.61 4.60 - 6.20 Mil/ul INTERFACE SYSTEM HEMOGLOBIN 13.6(L) 14.0 - 18.0 g/dL INTERFACE SYSTEM HEMATOCRIT 41.4 41.0 - 53.0 % INTERFACE SYSTEM MCV 89.8 84.0 - 103.0 Fl INTERFACE SYSTEM MCH 29.5 27.0 - 34.0 pg INTERFACE SYSTEM MCHC 32.9 30.0 - 35.0 g/dL INTERFACE SYSTEM RDW 14.7(H) 11.0 - 14.5 % INTERFACE SYSTEM PLATELETS 221 140 - 440 K/ul INTERFACE SYSTEM MPV 9.5 8.9 - 12.8 Fl INTERFACE SYSTEM NEUTROPHILS 71.3 42.2 - 75.2 % INTERFACE SYSTEM LYMPHOCYTES 18.8(L) 24.0 - 44.0 % INTERFACE SYSTEM MONOCYTES 7.7 2.0 - 10.0 % INTERFACE SYSTEM EOSINOPHILS 1.9 0.0 - 7.0 % INTERFACE SYSTEM BASOPHILS 0.3 0.0 - 1.0 % INTERFACE SYSTEM NEUTROPHIL ABSOLUTE 6.8 2.0 - 8.0 K/uL INTERFACE SYSTEM LYMPHOCYTE ABSOLUTE 1.8 1.2 - 4.0 K/ul INTERFACE SYSTEM MONOCYTE ABSOLUTE 0.7(H) 0.1 - 0.6 K/ul INTERFACE SYSTEM EOSINOPHIL ABSOLUTE 0.2 0.0 - 0.7 K/ul INTERFACE SYSTEM BASOPHILS ABSOLUTE 0.0 0.0 - 0.2 K/ul INTERFACE SYSTEM 02/13/2005 6:41 PM CDT us Nallely Velasquez DO HEMATOLOGY ORDERABLES Final Res ult INTERFACE SYSTEM Refer to clinic/hospital department documented in this encounter Visit Diagnoses Diagnosis Olecranon bursitis- Primary documented in this encounter Care Teams Grease Rack Worker Relationship Specialty Start Date End Date Celina Fofana MD [address] [place] [address] PCP - General Internal Medicine 10/13/17 documented as of this encounter
--- OUTSIDE RECORDS SUMMARY | 2024-10-24 11:37 | XMS_ITS | Encounter Summary ---
Author Organization [facility] Address [address] [place] [address] Care Team Providers Care Bilingual Call Center Representative Name Role Phone Celina Fofana MD Primary Care Provider +1- [phone] Encounter Details Date Type Department Care Team (Latest Contact Info) Description 02/11/2005 Outpatient Historical [facility] Family Medicine- [address] [place] [address] Monica Wells MD NO ADDRESS ON FILE CELLULITIS OF ARM (Primary Dx) Social History Tobacco Use Types Packs/Day Years Used Date Smoking Tobacco: Never Assessed Sex and Gender Information Value Date Recorded Sex Assigned at Not on file Legal 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
--- OUTSIDE RECORDS SUMMARY | 2024-10-24 11:37 | XMS_ITS | Encounter Summary ---
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
--- OUTSIDE RECORDS SUMMARY | 2024-10-24 11:37 | XMS_ITS | Encounter Summary ---
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
--- OUTSIDE RECORDS SUMMARY | 2024-10-24 11:37 | XMS_ITS | Encounter Summary ---
Author Organization [facility] Address [address] [place] [address] Care Team Providers Care Needle Loom Operator Helper Name Role Phone Celina Fofana MD Primary Care Provider +1- [phone] Encounter Details Date Type Department Care Team (Latest Contact Info) Description 01/09/2004 Outpatient Historical [facility] Family Medicine- [address] [place] [address] Monica Wells MD NO ADDRESS ON FILE GOUTY ARTHROPATHY (Primary Dx) Social History Tobacco Use Types Packs/Day Years Used Date Smoking Tobacco: Never Assessed Sex and Gender Information Value Date Recorded Sex Assigned at Not on file Legal Sex Male 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
--- OUTSIDE RECORDS SUMMARY | 2024-10-24 11:37 | XMS_ITS | Encounter Summary ---
Author Organization [facility] Address [address] [place] [address] Care Team Providers Care Blanket Weaver Name Role Phone Celina Fofana MD Primary Care Provider +1- [phone] Encounter Details Date Type Department Care Team (Latest Contact Info) Description 03/11/2003 Outpatient Historical [facility] Cardiac Business Banking Officer [address] [place] [address] Vern Hodge MD [address] [facility] [address] [place] [address] CORON ATHEROSCL [place] CORON VESSEL (Primary Dx) Social History Tobacco Use Types Packs/Day Years Used Date Smoking Tobacco: Never Assessed Sex and Gender Information Value Date Recorded Sex Assigned at Not on file Legal Sex Male 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
--- OUTSIDE RECORDS SUMMARY | 2024-10-24 11:37 | XMS_ITS | Encounter Summary ---
Author Organization [facility] Address [address] [place] [address] Care Team Providers Care Trust And Estates Paralegal Name Role Phone Celina Fofana MD Primary Care Provider +1- [phone] Encounter Details Date Type Department Care Team (Late st Contact Info) Description 12/12/2004 Outpatient Historical [facility] [address] [place] [address] Social History Tobacco Use Types Packs/Day Years Used Date Smoking Tobacco: Never Assessed Sex and Gender Information Value Date Recorded Sex Assigned at Not on file Legal Sex Male 6:19 AM FORECLOSURE SPECIALIST Gender Identity Not on file Sexual Orientation Not on file documented as of this encounter Plan of Treatment Not on file documented as of this encounter Visit Diagnoses Not on filedocumented in this encounter Care Teams Trust And Estates Paralegal Relationship Specialty Start Date End Date Celina Fofana MD [address] [place], [place] [address] PCP - General Internal Medicine 10/13/17 documented as of this encounter
--- OUTSIDE RECORDS SUMMARY | 2024-10-24 11:37 | XMS_ITS | Encounter Summary ---
Author Organization [facility] Address [address] [place] [address] Care Team Providers Care Media Consultant Name Role Phone Celina Fofana MD Primary Care Provider +1- [phone] Encounter Details Date Type Department Care Team (Latest Contact Info) Description 03/08/2003 Outpatient Historical [facility] [address] [place] [address] Froy Henry DO NO ADDRESS ON FILE CIRCULATORY DISEASE NOS (Primary Dx) Social History Tobacco Use Types Packs/Day Years Used Date Smoking Tobacco: Never Assessed Sex and Gender Information Value Date Recorded Sex Assigned at Not on file Legal Sex Male 6:19 AM LICENSED MENTAL HEALTH COUNSELOR Gender Identity Not on file Sexual Orientation Not on file documented as of this encounter Plan of Treatment Not on file documented as of this encounter Visit Diagnoses Diagnosis Unspecified circulatory system disorder- Primary documented in this encounter Care Teams Media Consultant Relationship Specialty Start Date End Date Celina Fofana MD [address] [place] [address] PCP - General Internal Medicine 10/13/17 documented as of this encounter
--- OUTSIDE RECORDS SUMMARY | 2024-10-24 11:37 | XMS_ITS | Encounter Summary ---
Author Organization [facility] Address [address] [place] [address] Care Team Providers Care Ceramic Worker Name Role Phone Celina Fofana MD Primary Care Provider +1- [phone] Encounter Details Date Type Department Care Team (Latest Contact Info) Description 03/16/2003 Outpatient Historical [facility] [address] [place] [address] Po Colón MD [address] [phone] PREOP EXAM OTHER SPECIFIED (Primary Dx) Social History Tobacco Use Types Packs/Day Years Used Date Smoking Tobacco: Never Assessed Sex and Gender Information Value Date Recorded Sex Assigned at Not on file 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
--- OUTSIDE RECORDS SUMMARY | 2024-10-24 11:37 | XMS_ITS | Encounter Summary ---
Author Organization [facility] Address [address] [place] [address] Care Team Providers Care Hydrogenation Still Operator Name Role Phone Celina Fofana MD Primary Care Provider +1- [phone] Encounter Details Date Type Department Care Team (Latest Contact Info) Description 02/13/2005 Outpatient Historical [facility] Medicine [address] [phone] Froy Henry DO NO ADDRESS ON FILE CELLULITIS OF ARM (Primary Dx) Social History Tobacco Use Types Packs/Day Years Used Date Smoking Tobacco: Never Assessed Sex and Gender Information Value Date Recorded Sex Assigned at Not on file 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
--- OUTSIDE RECORDS SUMMARY | 2024-10-24 11:37 | XMS_ITS | Encounter Summary ---
Author Organization [facility] Address [address] [place] [address] Care Team Providers Care Director Industrial Nursing Name Role Phone Celina Fofana MD Primary Care Provider +1- [phone] Encounter Details Date Type Department Care Team (Latest Contact Info) Description 08/25/2000 Outpatient Historical [facility] Medicine [address] [phone] Froy Henry DO NO ADDRESS ON FILE Unspecified essential hypertension (Primary Dx); Other and unspecified hyperlipidemia; Allergic rhinitis due to other allergen Social History Tobacco Use Types Packs/Day Years Used Date Smoking Tobacco: Never Assessed Sex and Gender Information Value Date Recorded Sex Assigned at Not on file Legal Sex Male 6:19 AM INLETTER Gender Identity Not on file Sexual Orientation Not on file documented as of this encounter Plan of Treatment Not on file documented as of this encounter Visit Diagnoses Diagnosis Unspecified essential hypertension- Primary Other and unspecified hyperlipidemia Allergic rhinitis due to other allergen documented in this encounter Care Teams Director Industrial Nursing Relationship Specialty Start Date End Date Celina Fofana MD [address] [place] [address] PCP - General Internal Medicine 10/13/17 documented as of this encounter
--- OUTSIDE RECORDS SUMMARY | 2024-10-24 11:37 | XMS_ITS | Encounter Summary ---
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
--- OUTSIDE RECORDS SUMMARY | 2024-10-24 11:37 | XMS_ITS | Encounter Summary ---
Author Organization [facility] Address [address] [place] [address] Care Team Providers Care Fruit Washer Name Role Phone Celina Fofana MD Primary Care Provider +1- [phone] Encounter Details Date Type Department Care Team (Latest Contact Info) Description 03/13/2004 Outpatient Historical [facility] Medicine [address] [phone] Froy Henry, NO ADDRESS ON FILE CORON ATHEROSCL [place] CORON VESSEL (Primary Dx); HYPERLIPIDEMIA NEC/NOS; GOUT NOS Social History Tobacco Use Types Packs/Day Years Used Date Smoking Tobacco: Never Assessed Sex and Gender Information Value Date Recorded Sex Assigned at Not on file 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
--- OUTSIDE RECORDS SUMMARY | 2024-10-24 11:37 | XMS_ITS | Clinical Summary ---
Author Organization [facility] Address [address] [place] [address] Care Team Providers Care Machinist Job Setter Name Role Phone Celina Fofana MD Primary Care Provider +1- [phone] Allergies No known active allergies Medications cpap medical deviceIndicatio ns:Obstructive sleep apnea (adult) (pediatric) CPAP at a pressure of 13.0 Cm/H2O with heated humidifier, using a nasal maskHeadgear q 6 mo; Mask Only q 3 mo; 2 cushions q mo; Tubing (Heated Yes; Non-heated No) q 3 mo; H20 Chamber q 6 mo; Chinstrap q 6 mo; Filters (disp 2/mo, non disp q 6 mo) Length of need:99 mo. Annula RX refillDx: LISA (G47.33), Insomnia (G47.00). 1 Each 0 9 Active insulin degludec (TRESIBA) 200 unit/mL pen syringe Inject 40 Units by subcutaneous injection daily at bedtime. 8 Active insulin aspart (NovoLOG) 100 unit/mL injection Inject 20 Units by subcutaneous injection 3 times daily with meals. 8 Active enalapril (VASOTEC) 20 mg tablet Take 1 Tab (20 mg) by mouth 2 times daily. 60 Tablet 2 5 Active spironolactone (ALDACTONE) 50 mg tablet Take 1 Tablet (50 mg) by mouth daily. 30 Tablet 2 5 Active cloNIDine HCL (CATAPRES) 0.1 mg tablet Take 1 Tablet (0.1 mg) by mouth daily. 30 Tablet 1 5 Active atorvastatin (LIPITOR) 80 mg tablet Take 1 Tab (80 mg) by mouth Daily LATE. 30 Tablet 0 5 Active clopidogreL (PLAVIX) 75 mg Tablet Take 1 Tab (75 mg) by mouth daily. 30 Tablet 11 5 Active isosorbide mononitrate (IMDUR) 120 mg Extended Release 24 hour tablet Take 1 Tab (120 mg) by mouth daily early childhood associate. 30 Tablet 3 5 Active metoprolol tartrate (LOPRESSOR) 100 mg tablet TAKE ONE TABLET BY MOUTH TWICE DAILY 60 Tablet 5 5 Active levothyroxine 200 mcg tablet TAKE ONE TABLET BY MOUTH ONCE DAILY IN THE BUSINESS LEADER. 30 Tablet 1 5 Active metFORMIN (GLUCOPHAGE) 500 mg tabletIndicatio ns:Newly diagnosed diabetes (CMS/HCC) Take 1 Tab (500 mg) by mouth 2 times daily with meals. 60 Tablet 2 5 Active allopurinoL (ZYLOPRIM) 300 mg tabletIndicatio ns:Gout Take 1 Tablet (300 mg) by mouth 2 times daily Needs to be seen before additional refills. 180 Tablet 0 5 Active lisinopriL (PRINIVIL) 20 mg tablet Take 20 mg by mouth daily. 7 Active amLODIPine (NORVASC) 5 mg tablet Take 5 mg by mouth daily. 7 Active pantoprazole (PROTONIX) 40 mg Tablet, Delayed Release (E.C.) Take 40 mg by mouth daily. 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/09/2013 ASHD (arteriosclerotic heart disease) 11/09/2013 Overview (08/24/2020): CABGX3 Stent X 1 Hyperglycemia 05/28/2012 Overview (08/24/2020): A1C: 6.0 (04/30) Glucose: 202 (11/06) Morbid obesity 05/28/2012 Colon cancer screening 10/14/2011 Overview (08/24/2020): Colonoscopy: Never Hypothyroidism 05/23/2010 Overview (08/24/2020): TSH: 05/10 (5.93); 11/06; 10/07 (11.1, subtherapeutic); 08/06 (8.9, subtherapeutic); 05/08 (15, subtherapeutic) Gout 05/23/2010 Overview (08/24/2020): Uric Acid: 12.3 (05/08) LISA (obstructive sleep apnea) 02/28/2009 Overview (08/24/2020): On nocturnal CPAP Encounter for long-term (current) use of other m edications 11/22/2008 HTN (hypertension) Hyperlipidemia Overview (08/23/2020): LDL: 106 (05/10); 111 (05/09); 108 (08/06); 233 (05/08) HDL: 30 (05/10); 32 (05/09); 26 (08/06); 32 (05/08) T (05/08) Resolved Problems Problem Noted Date Diagnosed Date Resolved Date H/O class III angina pectoris 11/09/2013 11/09/2018 Immunizations Immunization Administration Dates Next Due (PNEUMOVAX 23)(50 YRS UP) PN EUMOCOCCAL POLYSACCHARIDE (PPV23) 0.5 ML, IM 11/11/2013 Influenza Seasonal Unspecified Formulation IM Family History Medical History Relation Name Comments Heart Disease Brother 1 Heart Disease Brother 2 Heart Disease Father Heart Disease Mother Heart Disease Paternal Grandfather o f heart attack age 39 Breast Cancer Neg Hx Cancer Neg Hx Colon Cancer Neg Hx Relation Name Status Comments Brother 1 Brother 2 Father Mother Paternal Grandfather Social History Tobacco Use Types Packs/Day Years Used Date Smoking Tobacco: Never Smokeless Tobacco: Never Alcohol Use Standard Drinks/Week Comments No 0 (1 standard drink = 0.6 oz pur e alcohol) Sex and Gender Information Value Date Recorded Sex Assigned at Not on file Legal Sex Male 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 Gender Identity Not on file Sexual Orientation Not on file Last Filed Vital Signs Vital Sign Reading Time Taken Comments Blood Pressure 138/86 09/06/2022 1:26 PM CDT Pulse 86 09/06/2022 1:26 PM CDT Temperature 36.4 C (97.6 F) 10/14/2017 8:37 AM CDT Respiratory Rate 20 10/14/2017 8:37 AM CDT Oxygen Saturation - - Inhaled Oxygen Concentration - - Weight 142.9 kg (315 lb) 09/06/2022 1:26 PM CDT Height 175.3 cm (5' 9 ) 09/06/2022 1:26 PM CDT Body Mass Index 46.52 09/06/2022 1:26 PM CDT Plan of Treatment Health Maintenance Due Date Last Done Comments DIABETES MICROALBUMIN ANNUAL SCREEN 12/04/1973 LDL CHOLESTEROL ANNUAL 12/04/1973 DTAP/TDAP/TD VACCINES (1 - Tdap) 12/04/1974 COLORECTAL SCREENING 12/04/2000 Colorectal Cancer Screening 12/04/2000 FIT-DNA Q 3 years 12/04/2000 FIT/FOBT Q 1 year 12/04/2000 Flex Sig/CT Colonography Q 5 years 12/04/2000 ZOSTER VACCINE (1 of 2) 12/04/2005 DIABETES ANNUAL RETINAL EXAM 12/03/2008 12/04/2007, 05/12/2006 PNEUMOCOCCAL VACCINE 50+ YEA RS (2 of 2 - PCV) 11/11/2014 11/11/2013 DIABETES ANNUAL FOOT EXAM 03/31/2015 03/31/2014 RSV VACCINE (60+ or ) (1 - Risk 60-74 years 1-dose series) 2015 DIABETES HBA1C Q 6 MONTHS 09/13/20232022, 10/12/2017, 10/12/2017 INFLUENZA VACCINE (#1) 2023 03/02/2003 Procedures Procedure Name Priority Date/Time Associated Diagnosis Comments HEMOGLOBIN A1C Routine 10/12/2017 6:05 AM CDT from Last 3 Months or Most Recently Relevant to Health Maintenance Results * (ABNORMAL) HEMOGLOBIN A1C (10/12/2017 6:05 AM CDT) HEMOGLOBIN A1C 10.6(H) 4.8 - 5.9 % 10/12/2017 6:[address] [facility] EST. AVG GLUCOSE, A1C 258 mg/dL 10/12/2017 6:[address] [facility] Blood Venipuncture / Unknown 10/12/2017 6:05 AM CDT 10/12/2017 6:[address] [facility] - 10/12/2017 6:46 AM CDT If not available from last three months. HGB A1C INTERPRETATION NORMAL: <5.7% PRE-DIABETES: 5.7 - 6.4% DIABETES: 6.5% OR GREATER us Adarsh Lema MD CHEMISTRY ORDERABLES [facility] # [id number] [address] [place] [address] [id number] [facility] CLIA # [id number] [address] [place] [id number] from Last 3 Months or Most Recently Relevant to Health Maintenance Insurance [employer] O [facility] Care Teams Machinist Job Setter Relationship Specialty Start Date End Date Celina Fofana MD [address] [place] [address] PCP - General 08/10/20
--- OUTSIDE RECORDS SUMMARY | 2024-10-24 11:37 | XMS_ITS | Encounter Summary ---
Author Organization [facility] Address [address] [place] [address] Care Team Providers Care Spanish Lecturer Name Role Phone Celina Fofana MD Primary Care Provider +1- [phone] Encounter Details Date Type Department Care Team (Latest Contact Info) Description 04/06/2003 Outpatient Historical [facility] Cardiology- [place] [address] [place] [address] Po Colón MD [address] [phone] CORONARY ATHEROSCLER UNSPEC VESSEL (Primary Dx) Social History Tobacco Use Types Packs/Day Years Used Date Smoking Tobacco: Never Assessed Sex and Gender Information Value Date Recorded Sex Assigned at Not on file Legal 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
--- OUTSIDE RECORDS SUMMARY | 2024-10-24 11:37 | XMS_ITS | Clinical Summary ---
Author Organization [facility] Address [address] [place] [address] Care Team Providers Care Bituminous Distributor Operator Name Role Phone Celina Fofana MD Primary Care Provider +1- [phone] Allergies No known active allergies Medications aspirin (SARATH) 325 mg Oral tablet Take 1 Tab by mouth daily. 30 Tab 0 2 Active nitroglycerin (NITROSTAT) 0.4 mg Tablet, Sublingual Place 1 Tab under tongue every 5 minutes as needed for Chest Pain (Not to exceed 3 doses, notify physician if chest pain not relieved, hold if systolic BP less than or equal to 90 mmHg). 25 Tab 4 4 Active blood sugar diagnostic (ONE TOUCH ULTRA TEST) StripIndication s:Newly diagnosed diabetes (CMS/HCC) Test in am before breakfast and 2 hours after lunch 100 Strip 2 4 Active ONE TOUCH ULTRA 2 Kit USE DIRECTED. DX. 250.00 1 Each 0 4 Active isosorbide mononitrate (IMDUR) 120 mg Extended Release 24 hour tablet Take 1 Tab (120 mg) by mouth daily optical lens manufacturing tech. 30 Tab 3 5 Active metFORMIN (GLUCOPHAGE) 500 mg tabletIndicatio ns:Newly diagnosed diabetes (CMS/HCC) Take 1 Tab (500 mg) by mouth 2 times daily with meals. 60 Tab 2 5 Active levothyroxine 200 mcg tablet TAKE ONE TABLET BY MOUTH ONCE DAILY IN THE EMPLOYMENT COORDINATOR. 30 Tab 1 5 Active metoprolol tartrate (LOPRESSOR) 100 mg tablet TAKE ONE TABLET BY MOUTH TWICE DAILY 60 Tab 5 5 Active enalapril (VASOTEC) 20 mg tablet Take 1 Tab (20 mg) by mouth 2 times daily. 60 Tab 2 5 Active clopidogrel (PLAVIX) 75 mg Tablet Take 1 Tab (75 mg) by mouth daily. 30 Tab 11 5 Active atorvastatin (LIPITOR) 80 mg tablet Take 1 Tab (80 mg) by mouth Daily LATE. 30 Tab 0 5 Active spironolactone (ALDACTONE) 50 mg tablet Take 1 Tablet (50 mg) by mouth daily. 30 Tablet 2 5 Active allopurinol (ZYLOPRIM) 300 mg tabletIndicatio ns:Gout Take 1 Tablet (300 mg) by mouth 2 times daily Needs to be seen before additional refills. 180 Tablet 0 5 Active cloNIDine HCl (CATAPRES) 0.1 mg tablet Take 1 Tablet (0.1 mg) by mouth daily. 30 Tablet 1 5 Active amLODIPine (NORVASC) 5 mg tablet Take 5 mg by mouth daily. Active pantoprazole (PROTONIX) 40 mg Tablet, Delayed Release (E.C.) Take 40 mg by mouth daily. Active lisinopril (PRINIVIL) 20 mg tablet Take 20 mg by mouth daily. Active insulin aspart (NovoLOG) 100 unit/mL injection Inject 20 Units by subcutaneous injection 3 times daily with meals. Active insulin degludec (TRESIBA FLEXTOUCH U-200) 200 unit/mL pen syringe Inject 40 Units by subcutaneous injection daily at bedtime. Active cpap medical deviceIndicatio ns:Obstructive sleep apnea (adult) (pediatric) CPAP at a pressure of 13.0 Cm/H2O with heated humidifier, using a nasal mask Headgear q 6 mo; Mask Only q 3 mo; 2 cushions q mo; Tubing (Heated Yes; Non-heated No) q 3 mo; H20 Chamber q 6 mo; Chinstrap q 6 mo; Filters (disp 2/mo, non disp q 6 mo) Length of need:99 mo. Annula RX refill Dx: LISA (G47.33), Insomnia (G47.00). 1 Each 9 Active Active Problems Problem Noted Date Diagnosed Date History of coronary artery bypass graft 12/13/19 20 History of coronary artery stent placement 12/12 Stable angina 12/13/2019 Complicated UTI (urinary tract infection) 2017 Tobacco use 07/03/2017 Tear meniscus knee 02/24/2014 DM (diabetes mellitus) 02/10/2014 Morbid obesity with body mass index of 45.0-49.9 in adult 11/10/2013 Malignant hypertension 11/09/2013 ASHD (arteriosclerotic heart disease) 11/09/2013 Overview (10/12/2017): CABGX3 Stent X 1 Morbid obesity 05/28/2012 Hyperglycemia 05/28/2012 Overview (05/29/2012): A1C: 6.0 (04/30) Glucose: 202 (11/06) Colon cancer screening 10/14/2011 Overview (10/14/2011): Colonoscopy: Never Hypothyroidism 05/23/2010 Overview (05/30/2012): TSH: 05/10 (5.93); 11/06; 10/07 (11.1, subtherapeutic); 08/06 (8.9, subtherapeutic); 05/08 (15, subtherapeutic) Gout 05/23/2010 Overview (08/03/2010): Uric Acid: 12.3 (05/08) LISA (obstructive sleep apnea) 02/28/2009 Overview (05/28/2012): On nocturnal CPAP Encounter for long-term (current) use of other m edications 11/22/2008 HTN (hypertension) Hyperlipidemia Overview (05/29/2012): LDL: 106 (05/10); 111 (05/09); 108 (08/06); [...] Date Smoking Tobacco: Never Smokeless Tobacco: Never Tobacco Cessation:Counseling Given: No Alcohol Use Standard Drinks/Week Comments No 0 (1 standard drink = 0.6 oz pur e alcohol) Sex and Gender Information Value Date Recorded Sex Assigned at Not on file Legal Sex Male 6:19 AM ELIGIBILITY AND OCCUPANCY INTERVIEWER Gender Identity Not on file Sexual Orientation Not on file Occupation Industry Job Start Date Job End Date Not on file Not on file Not on file Not on file Last Filed Vital Signs Vital Sign Reading Time Taken Comments Blood Pressure 134/76 12/06/2019 2:56 PM CDT Pulse 72 12/06/2019 2:56 PM CDT Temperature 36.4 C (97.6 F) 10/14/2017 8:37 AM CDT Respiratory Rate 20 10/14/2017 8:37 AM CDT Oxygen Saturation 96% 10/14/2017 8:37 AM CDT Inhaled Oxygen Concentration - - Weight 146.6 kg (323 lb 3.2 oz) 12/06/2019 2:56 PM CDT Height 175.3 cm (5' 9 ) 12/06/2019 2:56 PM CDT Body Mass Index 47.73 12/06/2019 2:56 PM CDT Plan of Treatment Health Maintenance Due Date Last Done Comments DTAP/TDAP/TD VACCINES (1 - Tdap) 12/04/1974 FIT-DNA Q 3 years 12/04/2000 FIT/FOBT Q 1 year 12/04/2000 Flex Sig/CT Colonography Q 5 years 12/04/2000 ZOSTER VACCINE (1 of 2) 12/04/2005 DIABETES ANNUAL RETINAL EXAM 12/03/2008 12/04/2007, 05/12/2006 PNEUMOCOCCAL VACCINE 50+ YEA RS (2 of 2 - PCV) 11/11/2014 11/11/2013 LDL CHOLESTEROL ANNUAL 01/06/2015 4, 05/28/2012, 05/23/2011, Additional history exists DIABETES ANNUAL FOOT EXAM 03/31/20152013, 03/17/2014, 03/17/2014 DIABETES MICROALBUMIN ANNUAL SCREEN 03/31/2015 03/31/2014 RSV VACCINE (60+ or ) (1 - Risk 60-74 years 1-dose series) 2015 DIABETES HBA1C Q 6 MONTHS 04/13/20182017, 01/10/2014, 05/28/2012 COLORECTAL SCREENING 11/10/2023 11/09/2013 Colorectal Cancer Screening 11/10/2023 INFLUENZA VACCINE (#1) 2023 03/02/2003 Procedures Procedure Name Priority Date/Time Associated Diagnosis Comments HEMOGLOBIN A1C Routine 10/12/2017 6:05 AM CDT MICROALBUMIN/CREATIN INE RATIO, RANDOM UR Routine 03/31/2014 8:43 AM ELIGIBILITY AND OCCUPANCY INTERVIEWER DM (diabetes mellitus) ([facility]) LIPID PANEL Routine 01/06/2014 6:16 AM CDT Hyperlipidemia from Last 3 Months or Most Recently Relevant to Health Maintenance Results * (ABNORMAL) HEMOGLOBIN A1C (10/12/2017 6:05 AM CDT) HEMOGLOBIN A1C 10.6(H) 4.8 - 5.9 % 10/12/2017 6:46 AM CDT [facility] EST. AVG GLUCOSE, A1C 258 mg/dL 10/12/2017 6:46 AM CDT [facility] Blood Venipuncture / Unknown 10/12/2017 6:05 AM CDT 10/12/2017 6:18 AM CDT Narrative [facility] - 10/12/2017 6:46 AM CDT HGB A1C INTERPRETATION NORMAL: <5.7% PRE-DIABETES: 5.7 - 6.4% DIABETES: 6.5% OR GREATER us Adarsh Lema MD CHEMISTRY ORDERABLES Tash mathews Result [facility] CLIA # [id number] [address] [place] [address] * MICROALBUMIN/CREATININE RATIO, RANDOM UR (03/31/2014 8:43 AM ELIGIBILITY AND OCCUPANCY INTERVIEWER) MICROALBUMIN URINE 0.5 MG/DL [facility] Creatinine, Urine 184 MG/DL [facility] MICROALBUMIN/CREA T RATIO, UR 2.7 MCG/MG CREAT. [facility] Comment: NORMAL: <30 MCG/MG CREAT MICROALBUMINURIA: 30-300 MCG/MG CREAT CLINICAL ALBUMINURIA: >300 MCG/MG CREAT Urine specimen (specimen) 03/31/2014 8:43 AM ELIGIBILITY AND OCCUPANCY INTERVIEWER 03/31/2014 8:44 AM ELIGIBILITY AND OCCUPANCY INTERVIEWER us Graciela Hannon BARTENDER SERVER URINE ORDERABLES Final Resu lt INTERFACE SYSTEM Refer to clinic/hospital department [facility] CLIA# [id number] [facility] [place] [address] * (ABNORMAL) LIPID PANEL (01/06/2014 6:16 AM CDT) CHOLESTEROL 228(H) 130 - 200 mg/dL 01/06/2014 6:50 AM CDT [facility] [employer] [facility] TRIGLYCERIDE 645(H) 30 - 200 mg/dL 01/06/2014 6:50 AM CDT [facility] [employer] [facility] HDL 26(L) 35 - 80 mg/dL 01/06/2014 6:50 AM CDT [facility] [employer] [facility] LDL CALCULATED 0 - 100 mg/dL 01/06/2014 6:50 AM CDT [facility] [employer] [facility] Comment:Calculated LDL is no t accurate when the Triglyceride value exceeds 400. Blood Collection / Unknown 01/06/2014 6:16 AM CDT 01/06/2014 6:16 AM CDT Narrative [facility] - 01/06/2014 6:50 AM CDT TOTAL CHOLESTEROL mg/dL Desirable <200 Borderline high 200-239 High >=240 TRIGLYCERIDES mg/dL Normal <150 Borderline high 150-199 High 200-499 Very high >=500 HDL CHOLESTEROL mg/dL Low <40 Normal 40-60 Desirable >60 LDL CHOLESTEROL mg/dL Optimal <100 Low risk 100-129 Borderline high 130-159 High 160-189 Very high >=190 Based on AHA/NCEP Guidelines Garciela Vasquez Parvez BARTENDER SERVER CHEMISTRY ORDERABLES Final Result [facility] CLIA # [id number] [address] [facility] [address] [place] [address] from Last 3 Months or Most Recently Relevant to Health Maintenance Insurance [facility] Advance Directives For more information, please contact: [phone] * Full Code (Latest Code Status on File) Date Activated Date Inactivated Comments 10/12/2017 3:26 AM 10/14/2017 1:25 PM * Full Code Date Activated Date Inactivated Comments 11/09/2013 2:53 PM 11/11/2013 1:01 PM Care Teams Bituminous Distributor Operator Relationship Specialty Start Date End Date Celina Fofana MD [address] [place] [address] PCP - General Internal Medicine 10/13/17
--- OUTSIDE RECORDS SUMMARY | 2024-10-24 11:37 | XMS_ITS | Encounter Summary ---
Author Organization [facility] Address [address] [place] [address] Care Team Providers Care Fuller Brush Worker Name Role Phone Celina Fofana MD Primary Care Provider +1- [phone] Encounter Details Date Type Department Care Team (Late st Contact Info) Description 11/22/2004 Outpatient Historical [facility] Cardiology- [place] [address] [place] [address] Vern Hodge MD [address] [facility] [address] [place] [address] CORON ATHEROSCL [place] CORON VESSEL (Primary Dx); HYPERTENSION NOS; OBESITY NOS; ESOPHAGEAL REFLUX Social History Tobacco Use Types Packs/Day Years Used Date Smoking Tobacco: Never Assessed Sex and Gender Information Value Date Recorded Sex Assigned at Not on file Legal 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
--- OUTSIDE RECORDS SUMMARY | 2024-10-24 11:37 | XMS_ITS | Encounter Summary ---
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
--- OUTSIDE RECORDS SUMMARY | 2024-10-24 11:37 | XMS_ITS | Encounter Summary ---
Author Organization [facility] Address [address] [place] [address] Care Team Providers Care Wastewater Project Engineer Name Role Phone Celina Fofana MD Primary Care Provider +1- [phone] Encounter Details Date Type Department Care Team (Late st Contact Info) Description 03/17/2003 Inpatient Historical [facility] IN BED Po Colón MD [address] [phone] CORON ATHEROSCL [place] B[place] CORON VESSEL (Primary Dx) Social History Tobacco Use Types Packs/Day Years Used Date Smoking Tobacco: Never Assessed Sex and Gender Information Value Date Recorded Sex Assigned at Not on file 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
--- OUTSIDE RECORDS SUMMARY | 2024-10-24 11:37 | XMS_ITS | Encounter Summary ---
Author Organization [facility] Address [address] [place] [address] Care Team Providers Care Bee Keeper Name Role Phone Celina Fofana MD Primary Care Provider +1- [phone] Encounter Details Date Type Department Care Team (Latest Contact Info) Description 04/04/2003 Outpatient Historical [facility] Cardiac Thoracic Vascular Surg [place] [address] [place] [address] Po Colón MD [address] [phone] CORON ATHEROSCL [place] CORON VESSEL (Primary Dx) Social History Tobacco Use Types Packs/Day Years Used Date Smoking Tobacco: Never Assessed Sex and Gender Information Value Date Recorded Sex Assigned at Not on file 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
--- OUTSIDE RECORDS SUMMARY | 2024-10-24 11:37 | XMS_ITS | Encounter Summary ---
Author Organization [facility] Address [address] [place] [address] Care Team Providers Care Communications Supervisor Name Role Phone Celina Fofana MD Primary Care Provider +1- [phone] Encounter Details Date Type Department Care Team (Latest Contact Info) Description 12/17/2005 Outpatient Historical [facility] Cardiology- [place] [address] [place] [phone] Grace Torres, [facility] [address] [facility] [address] [place] [phone] Coronary Atherosclerosis of [place] Coronary Artery (Primary Dx); Unspecified Essential Hypertension; Pure Hypercholesterolem Social History Tobacco Use Types Packs/Day Years Used Date Smoking Tobacco: Never Assessed Sex and Gender Information Value Date Recorded Sex Assigned at Not on file 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
--- OUTSIDE RECORDS SUMMARY | 2024-10-24 11:37 | XMS_ITS | Encounter Summary ---
Author Organization [facility] Address [address] [place] [address] Care Team Providers Care Developer Programmer Name Role Phone Celina Fofana MD Primary Care Provider +1- [phone] Encounter Details Date Type Department Care Team (Latest Contact Info) Description 12/20/2003 Outpatient Historical [facility] Medicine [place] [address] 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
--- OUTSIDE RECORDS SUMMARY | 2024-10-24 11:37 | XMS_ITS | Encounter Summary ---
Author Organization [facility] Address [address] [place] [address] Care Team Providers Care Hotel Front Desk Agent Name Role Phone Celina Fofana MD Primary Care Provider +1- [phone] Encounter Details Date Type Department Care Team (Late st Contact Info) Description 07/19/2003 Outpatient Historical [facility] FY06 Vern Hodge MD [address] [facility] [address] [place] [address] Social History Tobacco Use Types Packs/Day Years Used Date Smoking Tobacco: Never Assessed Sex and Gender Information Value Date Recorded Sex Assigned at Not on file 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
--- OUTSIDE RECORDS SUMMARY | 2024-10-24 11:37 | XMS_ITS | Encounter Summary ---
Author Organization [facility] Address [address] [place] [address] Care Team Providers Care Welding Machine Operator Friction Name Role Phone Celina Fofana MD Primary Care Provider +1- [phone] Encounter Details Date Type Department Care Team (Latest Contact Info) Description 06/05/2005 Outpatient Historical [facility] Family Medicine- [place] [address] [place] [address] Geovani Hernandez PA NO ADDRESS ON FILE CELLULITIS OF FACE (Primary Dx); HYPERTENSION NOS Social History Tobacco Use Types Packs/Day Years Used Date Smoking Tobacco: Never Assessed Sex and Gender Information Value Date Recorded Sex Assigned at Not on file Legal 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
[2024-10-24 11:47] VITALS: BP 135/83; PULSE 68; TEMP 36.7; O2SAT 96; BMI 45.0
--- NOTE | 2024-10-24 13:23 | W.ED.EXTPRO ---
HPI - Extremity Problem General: Chief complaint: Extremity Problem,Nontraumatic Stated complaint: Lt knee inj Time Seen by Provider: 10/24/24 13:03 History of Present Illness: Patient is a 68-year-old male with history of CAD, last PTCA is 3 years ago, on Plavix and aspirin, gout, DM, HTN that presented with left knee pain and swelling. Patient stated this started yesterday. He has issues with his bilateral knees, and currently awaiting weight loss for placement, however yesterday started having excruciating left knee pain with edema medially. Difficulty with ambulation, and utilizing a cane for support. Associated symptoms: Deny chest pain, fever(s) or rash Related Data Home Medications ?Medication ?Instructions ?Recorded ?Confirmed aspirin 81 mg chewable tablet 81 mg PO QPM 07/08/20 10/18/24 insulin aspart U-100 100 unit/mL 20 - 25 unit SUBCUT TIDWM 07/08/20 10/18/24 (3 mL) subcutaneous pen (Novolog FlexPen U-100 Insulin aspart) insulin degludec 100 unit/mL (3 50 unit SUBCUT BEDTIME 07/08/20 10/18/24 mL) subcutaneous pen (Tresiba FlexTouch U-100 insulin) isosorbide mononitrate 120 mg 120 mg PO QAM 07/08/20 10/18/24 tablet,extended release 24 hr levothyroxine 175 mcg tablet 175 mcg PO QAM 07/08/20 10/18/24 metformin 500 mg tablet 500 mg PO BID 07/08/20 10/18/24 Held on 11/17/21. Instructions: Resume on 11/19/21. metoprolol tartrate 25 mg tablet 25 mg PO BID 07/08/20 10/18/24 pantoprazole 40 mg tablet,delayed 40 mg PO QAM 07/08/20 10/18/24 release amlodipine 5 mg tablet 10 mg PO QAM 08/27/21 10/18/24 clopidogrel 75 mg tablet 75 mg PO QAM 08/27/21 10/18/24 lisinopril 40 mg tablet 40 mg PO QAM 08/27/21 10/18/24 rosuvastatin 40 mg tablet 40 mg PO QAM 08/27/21 10/18/24 semaglutide 0.25 mg or 0.5 mg (2 mg SUBCUT 03/30/24 10/18/24 mg/1.5 mL) subcutaneous pen injector (Ozempic) Previous Rx's ?Medication ?Instructions ?Recorded Diabetic shoes with 3 sets of #1 ea 04/10/21 insoles meloxicam 7.5 mg tablet 7.5 mg PO DAILY #30 tabs 04/08/24 Diabetic shoes with 3 inserts #1 ea 04/13/24 gabapentin 300 mg capsule 300 mg PO TID 90 days #270 caps 07/13/24 prednisone 10 mg tablet 30 mg (3 x 10 mg) PO DAILY 5 days 09/21/24 #15 tabs allopurinol 100 mg tablet 100 mg PO DAILY gout, elevted uric 09/22/24 acid. #30 tabs methocarbamol 500 mg tablet 500 mg PO Q8H PRN muscle pain #30 10/24/24 tabs pantoprazole 40 mg tablet,delayed 40 mg PO DAILY #30 tabs 10/24/24 release Allergies Allergy/AdvReac Type Severity Reaction Status Date / Time No Known Allergies Allergy Verified 10/24/24 11:53 Review of Systems Const: Denies: fever(s) or chills Eyes: Denies: change in vision or blurry vision ENMT: Denies: throat pain or mouth pain Card: Denies: chest pain or palpitations Resp: Denies: dyspnea or non-productive cough GI: Denies: abdominal pain, nausea or vomiting : Denies: flank pain or difficulty urinating Musc: Reports: extremity pain, extremity swelling, joint pain and joint swelling; Denies: neck pain, back pain or joint redness Skin/Breast: Denies: rash or pruritus Neuro: Denies: headache(s) or numbness in extremities Psych: Denies: anxiety or depression PFSH ED PFSH: Medical History History of gout Chest pain Acute posterior myocardial infarction Percutaneous transluminal coronary angioplasty (PTCA) within last 14 to 24 months Gastroesophageal reflux disease Sleep apnea Hypothyroidism Hypertension Coronary artery disease Surgical History History of coronary artery bypass graft x 3 Family History Mother Diabetes Hyperlipidemia Hypertension Father CAD (coronary artery disease) Hyperlipidemia Hypertension Diabetes Social History Smoking and tobacco/nicotine status: never used tobacco/nicotine Alcohol intake: never Substance/Drug Use: never Current occupational status: disabled Physical Exam Const: COMMON NORMALS: no acute distress, patient oriented x3 and alert GENERAL APPEARANCE: cooperative NUTRITIONAL APPEARANCE: obese morbidly obese HENMT: COMMON NORMALS: normocephalic, atraumatic and hearing grossly normal bilaterally HEAD & SCALP: normocephalic and atraumatic FACE & SINUS: normal facial exam MOUTH: Normal oral and palatal mucosa present Eye: COMMON NORMALS: Equal, round and reactive pupils present, EOMs intact bilaterally, conjunctivae normal and no scleral icterus GENERAL EYE: appearance normal, both eyes and all related structures CONJUNCTIVA: Yes conjunctivae normal PUPIL: Yes Equal, round and reactive pupils present Lymph: LYMPHATIC: no lymphadenopathy noted Chest: COMMONS NORMALS: normal palpation of entire chest wall Resp: COMMON NORMALS: normal respiratory effort, No use of accessory muscles and clear to auscultation bilaterally AUSCULTATION: clear to auscultation bilaterally Cardio: COMMON NORMALS: regular rate and regular rhythm RATE: regular rate RHYTHM: regular rhythm GI: COMMON NORMALS: Normal to inspection, nondistended, normoactive bowel sounds present, Soft to palpation and non-tender PALPATION: Yes Soft to palpation : COMMON NORMALS: Yes no CVA tenderness BLADDER/KIDNEY EXAM: Yes no CVA tenderness Back/Pelvis: COMMON NORMALS: no CVA tenderness Extremity: COMMON NORMALS: normal to inspection, full ROM and capillary refill normal LEFT LOWER EXTREMITY: Yes knee joint Left knee: Yes inspection (edema medial), Yes palpation (pain lateral), Yes ROM (decreased due to pain) and Yes special tests Left knee special tests: Patellar apprehension test: Negative, Anterior Fran test: Negative, Valgus stress test: Negative and Varus stress test: Negative Neuro: COMMON NORMALS: patient oriented x3 and CN's II-XII intact bilaterally SENSORIUM/ORIENTATION: Yes alert GAIT: Yes Assistive device used cane SENSORY EXAM: Yes extremities MOTOR EXAM: 5/5 motor strength present throughout Psych: COMMON NORMALS: mental status grossly normal Course Vital Signs: Vital signs: Vital Signs Temperature 98.1 F 10/24/24 11:47 Pulse Rate 68 10/24/24 11:47 Blood Pressure 135/83 10/24/24 11:47 Pulse Oximetry 96 10/24/24 11:47 Oxygen Delivery Me thod Room Air 10/24/24 11:47 MDM - Extremity (Nontraumatic) Medical Decision Making Patient is a 68-year-old gentleman with left knee pain. On x-ray he has a small joint space with chronic osteoarthritis changes, however no appreciable effusion for draining. On exam he has edema to the right knee portion, however no red flags. Wells score is 0. He is compliant to his aspirin, and Plavix for previous PTCA 3 years ago. I am going to send the patient back to his orthopedist so he may discuss triamcinolone/cortisone injection. I do not feel comfortable with his small joint space with injection at this time. Will prescribe Robaxin, and patient will continue his meloxicam. He is to ice, elevate, and brace his knee. Lab Data Radiology Impressions Knee X-Ray 10/24/24 11:36 IMPRESSION: No acute findings. All radiology interpretation(s) finalized by discharge Discharge Plan Discharge Patient Disposition: Home Clinical Impression: Acute pain of left knee Condition: Stable Prescriptions: New methocarbamol 500 mg tablet 500 mg PO Q8H PRN (Reason: muscle pain) Qty: 30 0RF pantoprazole 40 mg tablet,delayed release (DR/EC) 40 mg PO DAILY Qty: 30 0RF No Action (DME) Diabetic shoes with 3 sets of insoles See Rx Instructions .Route .MEDSUPPLY Qty: 1 0RF Rx Instructions: As directed by ROSALINDA&O Ozempic 0.25 mg or 0.5 mg(2 mg/1.5 mL) pen injector SUBCUT gabapentin 300 mg capsule 300 mg PO TID 90 Days Qty: 270 2RF prednisone 10 mg tablet 30 mg PO DAILY 5 Days Qty: 15 0RF (DME) Diabetic shoes with 3 inserts See Rx Instructions .Route .MEDSUPPLY Qty: 1 0RF Rx Instructions: As directed meloxicam 7.5 mg tablet 7.5 mg PO DAILY Qty: 30 0RF allopurinol 100 mg tablet 100 mg PO DAILY Qty: 30 1RF metformin 500 mg tablet 500 mg PO BID levothyroxine 175 mcg tablet 175 mcg PO QAM isosorbide mononitrate 120 mg tablet extended release 24 hr 120 mg PO QAM pantoprazole 40 mg tablet,delayed release (DR/EC) 40 mg PO QAM aspirin 81 mg Tablet,Chewable 81 mg PO QPM insulin aspart U-100 [Novolog FlexPen U-100 Insulin] 100 unit/mL (3 mL) insulin pen 20 - 25 unit SUBCUT TIDWM Rx Instructions: (20- 25 units per sliding scale) metoprolol tartrate 25 mg tablet 25 mg PO BID Tresiba FlexTouch U-100 100 unit/mL (3 mL) insulin pen 50 unit SUBCUT BEDTIME lisinopril 40 mg tablet 40 mg PO QAM rosuvastatin 40 mg tablet 40 mg PO QAM clopidogrel 75 mg tablet 75 mg PO QAM amlodipine 5 mg tablet 10 mg PO QAM Discharge Orders: Discharge ED (Routine); Ordered 10/24/24 Ordered By: Simin Castañeda Referrals: Celina Fofana MD [Primary Care Provider, Internal Medicine] Sonja Clement MD [Physician, Orthopedics] Discharge Diet: Diabetic and Low Salt Patient Instructions: Patient Portal & Bhumika Instructions, Knee Pain (ED) Activity Restrictions/Additional Instructions: Continue utilizing your cane for support Call your orthopedist tomorrow for possible injection in this left knee Caution on muscle relaxer?methocarbamol. This can cause sedation side effects. You may cut in half. Ice, elevate, compress with a brace, or Rohan wrap Return to ED for worsening pain, redness, fevers Print Language: Indian Coding Level of Care Code ED [employer] Officer for Radha Figueroa
[2024-10-24] MEDS: ketorolac 30 mg/mL INJ 10 MG IM (14:11)
[2024-10-24] MEDS: orphenadrine 30 mg/mL Inj 2 mL 60 MG IM (14:11)
[2024-10-24] MEDS: pantoprazole DR 40 mg Tablet PO (14:19)
[2024-10-24 14:38] VITALS: BP 116/67; PULSE 66; O2SAT 93
== END 2024-10-24 14:39 | disposition home or self-care (01) ==
PROVIDERS: Emergency Provider Physician Assistant; PCP Internal Medicine
DX: M25.561 Pain in right knee (principal); Z79.84 Long term (current) use of oral hypoglycemic drugs; Z79.82 Long term (current) use of aspirin; Z79.4 Long term (current) use of insulin; Z79.02 Long term (current) use of antithrombotics/antiplatelets; I25.10 Atherosclerotic heart disease of native coronary artery without angina pectoris; I10 Essential (primary) hypertension
CPT/HCPCS: 73562; 96372; 99284; J1885; J2360; J9999

== ENCOUNTER → 2024-11-01 13:39 | Outpatient (BNVA) | payer MEDICARE, SELFPAY | PROVIDERS: PCP Internal Medicine; Visit Provider Specialist | DX: M17.12 Unilateral primary osteoarthritis, left knee (principal); E66.01 Morbid (severe) obesity due to excess calories; Z46.89 Encounter for fitting and adjustment of other specified devices | CPT/HCPCS: 20610; 73560; 73565; 99204; J1100; J2795; J3301; J9999 ==

== ENCOUNTER → 2024-12-20 12:04 | Outpatient (BNVA) | payer MEDICARE, SELFPAY | PROVIDERS: PCP Internal Medicine; Visit Provider Podiatrist Foot & Ankle Surgery | DX: E11.8 Type 2 diabetes mellitus with unspecified complications (principal); E11.42 Type 2 diabetes mellitus with diabetic polyneuropathy; L60.3 Nail dystrophy; L84 Corns and callosities; M21.611 Bunion of right foot; M21.612 Bunion of left foot; M21.41 Flat foot [pes planus] (acquired), right foot; M21.42 Flat foot [pes planus] (acquired), left foot; Z79.4 Long term (current) use of insulin; Z79.84 Long term (current) use of oral hypoglycemic drugs; Z79.85 Long-term (current) use of injectable non-insulin antidiabetic drugs | CPT/HCPCS: 99213 ==

== ENCOUNTER → 2025-02-11 08:41 | Outpatient (BNVA) | payer MEDICARE, SELFPAY | PROVIDERS: PCP Internal Medicine; Visit Provider Specialist | DX: M17.12 Unilateral primary osteoarthritis, left knee (principal); E66.01 Morbid (severe) obesity due to excess calories | CPT/HCPCS: 20610; J1100; J2795; J3301; J9999 ==

== ENCOUNTER → 2025-02-16 10:47 | Outpatient (BNVA) | payer MEDICARE, SELFPAY | PROVIDERS: PCP Internal Medicine; Visit Provider Specialist | DX: M17.11 Unilateral primary osteoarthritis, right knee (principal) | CPT/HCPCS: 20610; 73560; 73565; 99214; J1100; J2795; J3301; J9999 ==

== ENCOUNTER → 2025-02-21 12:55 | Outpatient (BNVA) | payer MEDICARE, SELFPAY | PROVIDERS: PCP Internal Medicine; Visit Provider Podiatrist Foot & Ankle Surgery | DX: E11.42 Type 2 diabetes mellitus with diabetic polyneuropathy (principal); L60.3 Nail dystrophy; L84 Corns and callosities; E11.8 Type 2 diabetes mellitus with unspecified complications; M21.611 Bunion of right foot; M21.612 Bunion of left foot; M21.41 Flat foot [pes planus] (acquired), right foot; M21.42 Flat foot [pes planus] (acquired), left foot; Z79.84 Long term (current) use of oral hypoglycemic drugs; Z79.4 Long term (current) use of insulin | CPT/HCPCS: 99213 ==